=== PATIENT | male | born 1990 | race Caucasian/White ===

== ENCOUNTER 2020-01-30 10:57 | Emergency (ER) | payer SELFPAY ==
--- NOTE | 2020-01-30 | XR_ITS ---
EXAMINATION: XR HAND, RIGHT CLINICAL INFORMATION: Right hand pain status post trauma to the fifth digit. COMPARISON: Right hand radiographs dated 04/09/2018. TECHNIQUE: PA, lateral, and oblique views of the right hand. FINDINGS: There has been interval removal of the previously seen K wire in the fifth metacarpal. Nonacute angulated deformity is seen in the fifth metacarpal. The phalanges are intact. The joint spaces are unremarkable. There is mild fifth digit soft tissue swelling. The remainder the digits are intact. The carpal bones are normally aligned. The distal radius and ulna are intact. IMPRESSION: 1. Mild first digit soft tissue swelling without acute underlying osseous abnormality. Nonacute deformity of the fifth metacarpal consistent with the patient's previous fracture.
[2020-01-30 13:16] VITALS: BP 122/66; PULSE 66; RESP 14; TEMP 36.6; O2SAT 99; BMI 22.6
--- NOTE | 2020-01-30 13:38 | ED.EXTPRO ---
HPI - Extremity Problem General Chief complaint: Extremity Injury, Upper Stated complaint: finger inj Time Seen by Provider: 01/30/20 13:18 Source: patient Mode of arrival: ambulatory Limitations: no limitations History of Present Illness HPI Narrative: patient tells me he was working on a dirtbike and it slipped and fell landing on his right 5th finger. Now has pain, swelling, difficulty flexing the finger. Has small abrasion, tetanus >5 years. Expressed some purulent drainage from wound this morning. No fevers/chills. Also c/o worsening eczema rash, ran out topical creams. MD Complaint: extremity pain and extremity swelling Onset (ago): day(s) (yesterday) Pain Consistency: constant Location: right Quality: sharp Radiation: none Relieving factors: immobilization Exacerbating factors: range of motion Associated symptoms: denies other symptoms Related Data Previous Rx's Medication Instructions Recorded cephalexin 250 mg PO Q6H #28 cap 01/30/20 hydrocortisone 1 applic TOPICAL BID PRN #30 g 01/30/20 Allergies Allergy/AdvReac Type Severity Reaction Status Date / Time apple [APPLE] Allergy Unknown ANAPHYLAXIS Verified 01/30/20 13:21 pollen extracts [POLLEN] Allergy Unknown SNEEZING Verified 01/30/20 13:21 Review of Systems Review of Systems: Yes all other systems are reviewed and are negative Constitutional: Constitutional: Reports no additional constitutional complaints, Denies chills, Denies fever(s) and Denies weakness Eyes: Eyes: Reports no additional eye complaints and Denies change in vision ENT: Reports system reviewed and no additional complaints, except as documented, Denies nasal congestion and Denies nasal discharge Cardiovascular: Cardiovascular: Reports no additional cardiovascular complaints, Denies chest pain, Denies leg edema and Denies dyspnea Respiratory: Respiratory: Reports no additional respiratory complaints, Denies cough and Denies dyspnea Gastrointestinal: Gastrointestinal: Reports no additional gastrointestinal complaints, Denies abdominal pain, Denies diarrhea, Denies nausea and Denies vomiting Musculoskeletal: Musculoskeletal: Reports no additional musculoskeletal complaints, Reports arthralgias, Reports joint swelling, Reports limited range of motion, Denies numbness and Denies tingling Integumentary/Breasts: Skin/Breast: Reports system reviewed and no additional complaints, except as docu and Reports rash Neurologic: Reports system reviewed and no additional complaints, except as documented, Denies Abnormal speech present, Denies numbness, Denies Sensory deficit (Neuro), Denies tingling and Denies weakness PMF Past Medical History Attestation statement: The following information was validated with the patient. Source: obtained from family and nursing notes reviewed Medical History Asthma Eczema Surgical History Hx of appendectomy Social History Social History Alcohol intake: current Alcohol intake frequency: a few times a week Alcohol type: beer and hard liquor Smoking Status: Current every day smoker Smoked in Last 30 Days: Yes Use of substances other than those prescribed or required for medical reasons: No Advance Directives: No Advance Directives Information Provided: Yes Physical Exam Vital Signs and I&O and Narrative: Vital Signs and I&O: Vital Signs Temp 97.8 F 01/30/20 13:48 Pulse 61 01/30/20 13:48 Resp 16 01/30/20 13:48 BP 110/66 01/30/20 13:48 Pulse Ox 99 01/30/20 13:48 Intake & Output 01/29/20 01/30/20 01/30/20 18:59 06:59 18:59 Weight 61.581 kg Body Mass Index 22.6 Const: General: cooperative, healthy appearing, comfortable, no acute distress and well developed Orientation/consciousness: patient oriented x3 Limitations: no limitations HENMT: Head: Yes normal to inspection Ears: hearing grossly normal bilaterally General nose exam: Normal external nose present Face and sinus: Yes normal facial exam Mouth: Normal oral and palatal mucosa present Throat: Yes posterior oropharynx normal Eyes: General: appearance normal, both eyes and all related structures Pupils: Equal, round and reactive pupils present Neck: Neck: Yes normal visual inspection Chest: Chest palpation & inspection: normal inspection of the chest Resp: Effort & Inspection: normal respiratory effort Auscultation: clear to auscultation bilaterally Cardio: Palpation: normal PMI Rate: regular rate Rhythm: regular rhythm Peripheral pulses: Peripheral pulses 2+ throughout GI: Inspection: Yes normal to inspection Palpation (GI): Soft to palpation and nontender Auscultation: normal bowel sounds Back/Spine/Pelvis: Thoracic/Lumbar Spine: thoracic and lumbar spine normal to inspection Skin: Other: eczema like lesions on the flexor surfaces of the UE. Over dorsal hands and digits Neuro: General: patient oriented x3 Cranial nerves: Yes Equal, round and reactive pupils present Speech: No Abnormal speech present Gait exam (Neuro): Normal gait present Motor exam (neuro): 5/5 motor strength present throughout and Motor abnormalities not present Sensory Exam: Normal double simultaneous stimulation for sensation; No Sensory deficit (Neuro) Extrem: Right upper extremity: full ROM (limited d/t pain/swelling ), edema (moderate-entire digit ) and Extremity exam: right hand (moderate swelling, small abrasion to dorsal aspect w/ mild surrounding redn) MDM - Extremity (Nontraumatic) MDM Narrative Medical decision making narrative: Right fifth digit pain, swelling s/p crush injury yesterday. Also has small abrasion to dorsal aspect with mild surrounding erythema. Unable to express drainage myself but patient tells me he was able to express some drainage this morning. Will need imaging to r/o fracture, tetanus updated, wound care. Also eczema exacerbation, will need topical steroids as he ran out at home. X-ray shows no acute findings. Exam c/w with contusion, likely early cellulitis and will treat with PO keflex. Reviewed worrisome signs/symptoms with the patinet and when to return to ED. Comfortable with discharge home. Imaging Data hand x-ray: Attestation: I personally reviewed and interpreted this imaging study as follows: My impression: no new bony abnormality Radiologist's impression: EXAMINATION: XR HAND, RIGHT CLINICAL INFORMATION: Right hand pain status post trauma to the fifth digit. COMPARISON: Right hand radiographs dated 04/09/2018. TECHNIQUE: PA, lateral, and oblique views of the right hand. FINDINGS: There has been interval removal of the previously seen K wire in the fifth metacarpal. Nonacute angulated deformity is seen in the fifth metacarpal. The phalanges are intact. The joint spaces are unremarkable. There is mild fifth digit soft tissue swelling. The remainder the digits are intact. The carpal bones are normally aligned. The distal radius and ulna are intact. IMPRESSION: 1. Mild first digit soft tissue swelling without acute underlying osseous abnormality. Nonacute deformity of the fifth metacarpal consistent with the patient's previous fracture. Discharge Plan Discharge Clinical Impression: Acute eczema Contusion Qualifiers: Encounter type: initial encounter Contusion area: finger Finger: little finger Damage to nail status: without damage Laterality: right Qualified Code(s): S60.051A - Contusion of right little finger without damage to nail, initial encounter Cellulitis Qualifiers: Site of cellulitis: extremity Site of cellulitis of extremity: finger Laterality: right Qualified Code(s): L03.011 - Cellulitis of right finger Patient Disposition: Home, Self-Care Instructions: Cellulitis (ED), Eczema (ED), Contusion in Adults (ED) Additional Instructions: ice to the area elevation topical antibiotic ointment as discussed Prescriptions: New hydrocortisone 2.5 % cream 1 applic topical BID PRN (Reason: rash) Qty: 30 RF: 0 cephalexin 250 mg capsule 250 mg PO Q6H Qty: 28 RF: 0 Referrals: Physician,None [Primary Care Provider] - 5 days Stand Alone Forms: Work/School Release Interventions: ED Discharge Assessment Last Done: 01/30/20 14:41 Discharge Date/Time: 01/30/20 14:42
[2020-01-30 13:48] VITALS: BP 110/66; PULSE 61; RESP 16; TEMP 36.6; O2SAT 99
== END 2020-01-30 14:42 | disposition home or self-care (01) ==
PROVIDERS: Emergency Provider Internal Medicine
DX: S60.051A Contusion of right little finger without damage to nail, initial encounter (principal); S60.416A Abrasion of right little finger, initial encounter; L03.011 Cellulitis of right finger; L30.9 Dermatitis, unspecified; M79.641 Pain in right hand; W01.0XXA Fall on same level from slipping, tripping and stumbling without subsequent striking against object, initial encounter; Y93.9 Activity, unspecified; Y92.007 Garden or yard of unspecified non-institutional (private) residence as the place of occurrence of the external cause; F17.200 Nicotine dependence, unspecified, uncomplicated; Z71.6 Tobacco abuse counseling
CPT/HCPCS: 73130; 90471; 90715; 99284

== ENCOUNTER 2020-09-13 11:38 | Emergency (ER) | payer SELFPAY ==
[2020-09-13 12:32] VITALS: BP 128/75; PULSE 95; RESP 16; TEMP 36.6; O2SAT 97; BMI 22.6
--- NOTE | 2020-09-13 13:30 | ED_ITS ---
HPI - Skin/Abscess/Foreign Bdy General Chief complaint: Skin/Abscess/Foreign Body Stated complaint: rash Time Seen by Provider: 09/13/20 12:52 Source: patient Mode of arrival: ambulatory Limitations: no limitations History of Present Illness HPI narrative: 30-year-old male with a history of psoriasis here with psoriasis flare for 3 days. Tells me he does not have a primary care doctor or ct scan technologist. No fevers, chills Related Data Previous Rx's Medication Instructions Recorded cephalexin 250 mg PO Q6H #28 cap 01/30/20 hydrocortisone 1 applic TOPICAL BID PRN #30 g 01/30/20 hydrocortisone [Anti-Itch (HC)] 1 appl TOPICAL TID PRN #453.6 g 09/13/20 hydroxyzine HCl 25 mg PO TID PRN #10 tab 09/13/20 prednisone 60 mg PO DAILY #15 tab 09/13/20 Allergies Allergy/AdvReac Type Severity Reaction Status Date / Time apple [APPLE] Allergy Unknown ANAPHYLAXIS Verified 09/13/20 12:34 pollen extracts [POLLEN] Allergy Unknown SNEEZING Verified 09/13/20 12:34 Review of Systems Review of Systems: Yes all other systems are reviewed and are negative Constitutional: Constitutional: Reports no additional constitutional complaints, Denies body ache(s), Denies chills, Denies fever(s), Denies headache(s) and Denies weakness Eyes: Eyes: Reports no additional eye complaints and Denies change in vision ENT: Reports system reviewed and no additional complaints, except as documented, Denies dizziness, Denies headache(s), Denies nasal congestion, Denies nasal discharge and Denies neck pain Cardiovascular: Cardiovascular: Reports no additional cardiovascular complaints, Denies chest pain, Denies leg edema and Denies dyspnea Respiratory: Respiratory: Reports no additional respiratory complaints, Denies cough and Denies dyspnea Gastrointestinal: Gastrointestinal: Reports no additional gastrointestinal complaints, Denies abdominal pain, Denies diarrhea, Denies nausea and Denies vomiting Genitourinary: Genitourinary: Denies urinary incontinence Musculoskeletal: Musculoskeletal: Reports no additional musculoskeletal complaints, Denies back pain, Denies arthralgias, Denies joint swelling, Denies neck pain, Denies numbness and Denies tingling Integumentary/Breasts: Skin/Breast: Reports system reviewed and no additional complaints, except as docu and Reports rash Neurologic: Reports system reviewed and no additional complaints, except as documented, Denies Abnormal speech present, Denies dizziness, Denies headache(s), Denies numbness, Denies tingling and Denies weakness PMFSH Past Medical History Attestation statement: The following information was validated with the patient. Source: old records reviewed and nursing notes reviewed Medical History Asthma Eczema Surgical History Hx of appendectomy Social History Social History Alcohol intake: never Smoking Status: Never smoker Use of substances other than those prescribed or required for medical reasons: No Advance Directives: No Advance Directives Information Provided: Yes Physical Exam Vital Signs: Vital Signs: Last Vital Signs Temp 98 F 09/13/20 12:32 Pulse 95 09/13/20 12:32 Resp 16 09/13/20 12:32 BP 128/75 09/13/20 12:32 Pulse Ox 97 09/13/20 12:32 Body Mass Index 22.6 Const: General: cooperative, healthy appearing, comfortable and no acute distress Orientation/consciousness: patient oriented x3 Limitations: no limitations HENMT: Head: Yes normal to inspection Ears: hearing grossly normal bilaterally General nose exam: Normal external nose present Face and sinus: Yes normal facial exam Mouth: Normal oral and palatal mucosa present Throat: Yes posterior oropharynx normal Eyes: General: appearance normal, both eyes and all related structures Pupils: Equal, round and reactive pupils present Neck: Neck: Yes normal visual inspection Chest: Chest palpation & inspection: normal inspection of the chest Resp: Effort & Inspection: normal respiratory effort Auscultation: clear to auscultation bilaterally Cardio: Rate: regular rate Rhythm: regular rhythm Peripheral pulses: Peripheral pulses 2+ throughout GI: Inspection: Yes normal to inspection Palpation (GI): Soft to palpation and nontender Auscultation: normal bowel sounds Back/Spine/Pelvis: Thoracic/Lumbar Spine: thoracic and lumbar spine normal to inspection Skin: Other: Raised Urticarial lesions with Brandon a cooley noted over the flexor surfaces of the upper extremities and over the trunk. No lesions noted over the extensor surfaces General skin exam: no rashes or lesions noted Neuro: General: patient oriented x3, no focal motor deficits and normal sensation to monofilament Cranial nerves: Yes Equal, round and reactive pupils present Cognition (Neuro): normal cognition Speech: No Abnormal speech present Gait exam (Neuro): Normal gait present Motor exam (neuro): 5/5 motor strength present throughout Extrem: General: Yes normal to inspection Course Course Course Narrative: 30-year-old male here with reports of psoriasis flare. Exam is more consistent with eczema however the treatment course is no different. Will give course of prednisone, hydrocortisone topical and hydroxyzine for itching. Patient does not have a primary care doctor or ct scan technologist. This is his repeat visit to the emergency department for the same thing. We discussed that it is very important that he establish a primary care doctor and request Dermatology referral as this is a life long diagnosis. Discharge Plan Discharge Clinical Impression: Psoriasis Patient Disposition: Home, Self-Care Instructions: Psoriasis (ED) Additional Instructions: Only use lukewarm showers avoid heat. Stay well moisturized. By Eucerin and mixes together with the hydrocortisone ointment See PCP list Prescriptions: New hydrocortisone [Anti-Itch (HC)] 1 % ointment 1 appl topical TID PRN (Reason: rash) Qty: 453.6 RF: 0 prednisone 20 mg tablet 60 mg PO DAILY Qty: 15 RF: 0 hydroxyzine HCl 25 mg tablet 25 mg PO TID PRN (Reason: itching) Qty: 10 RF: 0 No Action hydrocortisone 2.5 % cream 1 applic topical BID PRN (Reason: rash) Qty: 30 RF: 0 cephalexin 250 mg capsule 250 mg PO Q6H Qty: 28 RF: 0 Referrals: Physician,Unknown [Primary Care Provider] - 2 days Stand Alone Forms: Work/School Release Interventions: ED Discharge Assessment Last Done: 09/13/20 13:22 Discharge Date/Time: 09/13/20 13:23
== END 2020-09-13 13:23 | disposition home or self-care (01) ==
PROVIDERS: Emergency Provider Emergency Medicine Emergency Medical Services
DX: L40.9 Psoriasis, unspecified (principal)
CPT/HCPCS: 99283; 99284

== ENCOUNTER 2021-01-21 10:09 | Emergency (ER) | payer OTHER, SELFPAY ==
[2021-01-21 11:10] VITALS: BP 137/63; PULSE 72; RESP 18; TEMP 36.4; O2SAT 98; BMI 21.7
--- NOTE | 2021-01-21 11:32 | ED.SKABFB ---
HPI - Skin/Abscess/Foreign Bdy General Chief complaint: Skin/Abscess/Foreign Body Stated complaint: facial swelling Time Seen by Provider: 01/21/21 11:30 Source: patient Mode of arrival: ambulatory Limitations: no limitations History of Present Illness HPI narrative: 30-year-old male presents for 4 days of worsening rash and itching. Patient has a history of psoriasis, and has as scaly flaky itchy rash on his face, neck, trunk, low back, flexor surfaces of his elbows, and under his right axilla. Patient was seen her in August, given prednisone hydroxyzine and hydrocortisone cream. Patient has run out of these medications. He does not have a PCP but he is interested in getting insurance through [employer]. Related Data Previous Rx's Medication Instructions Recorded cephalexin 250 mg capsule 250 mg PO Q6H #28 cap 01/30/20 hydrocortisone 2.5 % topical cream 1 applic TOPICAL BID PRN #30 g 01/30/20 hydrocortisone 1 % topical 1 appl TOPICAL TID PRN #453.6 g 09/13/20 ointment (Anti-Itch (hydrocortisone)) hydroxyzine HCl 25 mg tablet 25 mg PO TID PRN #10 tab 09/13/20 prednisone 20 mg tablet 60 mg PO DAILY #15 tab 09/13/20 hydrocortisone 1 % topical cream 1 appl TOPICAL TID PRN #454 g 01/21/21 hydroxyzine HCl 25 mg tablet 25 mg PO TID PRN #30 tab 01/21/21 prednisone 20 mg tablet 40 mg PO DAILY 5 Days #10 tab 01/21/21 Allergies Allergy/AdvReac Type Severity Reaction Status Date / Time apple [APPLE] Allergy Unknown ANAPHYLAXIS Verified 09/13/20 12:34 pollen extracts [POLLEN] Allergy Unknown SNEEZING Verified 09/13/20 12:34 Review of Systems Constitutional: Constitutional: Denies body ache(s), Denies chills, Denies fatigue, Denies fever(s), Denies headache(s), Denies malaise and Denies weakness Eyes: Eyes: Denies diplopia ENT: Denies vertigo, Denies dizziness, Denies headache(s) and Denies throat swelling Cardiovascular: Cardiovascular: Denies chest pain, Denies syncope, Denies leg edema, Denies lightheadedness, Denies Loss of Consciousness, Denies palpitations and Denies dyspnea Respiratory: Respiratory: Denies chest congestion, Denies cough and Denies dyspnea Musculoskeletal: Musculoskeletal: Reports no additional musculoskeletal complaints Integumentary/Breasts: Skin/Breast: Reports pruritus and Reports rash Neurologic: Denies confusion, Denies vertigo, Denies dizziness, Denies syncope, Denies headache(s) and Denies weakness Psychiatric: Psychiatric: Denies anxiety, Denies confusion and Denies depression Endocrine: Endocrine: Denies fatigue and Denies palpitations Allergic/Immunologic: Allergic/Immunologic: Denies throat swelling PMFSH Past Medical History Medical History Asthma Eczema Surgical History Hx of appendectomy Social History Social History Alcohol intake: never Advance Directives: No Advance Directives Information Provided: No Physical Exam Vital Signs: Vital Signs: Last Vital Signs Temp 97.6 F 01/21/21 11:10 Pulse 72 01/21/21 11:10 Resp 18 01/21/21 11:10 BP 137/63 01/21/21 11:10 Pulse Ox 98 01/21/21 11:10 Body Mass Index 21.7 Const: General: No confusion Nutritional Appearance: well nourished Orientation/consciousness: No confusion Limitations: no limitations Eyes: Conjunctivae: conjunctivae normal Pupils: Equal, round and reactive pupils present EOM: EOMs intact bilaterally Neck: Neck: Yes full ROM, Yes no lymphadenopathy and Yes supple Resp: Effort & Inspection: normal respiratory effort and able to speak in complete sentences Auscultation: clear to auscultation bilaterally, no crackles, no rales, no rhonchi and no wheezes Cardio: Rate: regular rate Rhythm: regular rhythm Heart sounds: S1 normal heart sound present and S2 normal heart sound present GI: Inspection: Yes normal to inspection Palpation (GI): Soft to palpation, nontender, no guarding and not rigid Percussion: Yes normal to percussion Auscultation: normal bowel sounds Skin: Other: Patient has erythematous cutaneous plaques with thick silvery scale that is puritic on his trunk, lower back, neck, flexor surfaces bilateral elbows, and mildly on his face. 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 On exam, patient has erythematous cutaneous plaques with thick silvery scale that is puritic on his trunk, lower back, neck, flexor surfaces bilateral elbows, and mildly on his face. We prescribed hydrocortisone cream, prednisone, hydroxyzine. Told patient to not put hydrocortisone cream on his face Gave patient card to call [employer] so he can establish insurance and starts seeing a primary care provider to take care of this life lung disease. Patient verbalized agreement and understanding of this plan. Discharge Plan Discharge Clinical Impression: Psoriasis Patient Disposition: Home, Self-Care Instructions: Psoriasis (ED) Additional Instructions: Please fill the prescriptions. Please call the number for [employer] to establish health insurance, so you can start seeing a primary care provider for your skin disease. There are medications that are more effective that a primary care provider can prescribe that I cannot prescribe here from the emergency room. Please avoid putting this cream on your head. Please moisturize. We discussed using something called Eucerin cream, which is a thick white cream you can buy at the pharmacy. You may use this on your hands, and then wear gloves to bed. This may help a lot with your hand symptoms. Please return for any new or concerning symptoms. Prescriptions: New hydrocortisone 1 % cream 1 appl topical TID PRN (Reason: rash) Qty: 454 RF: 0 prednisone 20 mg tablet 40 mg PO DAILY 5 Days Qty: 10 RF: 0 hydroxyzine HCl 25 mg tablet 25 mg PO TID PRN (Reason: itching) Qty: 30 RF: 0 No Action hydrocortisone [Anti-Itch (HC)] 1 % ointment 1 appl topical TID PRN (Reason: rash) Qty: 453.6 RF: 0 prednisone 20 mg tablet 60 mg PO DAILY Qty: 15 RF: 0 hydroxyzine HCl 25 mg tablet 25 mg PO TID PRN (Reason: itching) Qty: 10 RF: 0 hydrocortisone 2.5 % cream 1 applic topical BID PRN (Reason: rash) Qty: 30 RF: 0 cephalexin 250 mg capsule 250 mg PO Q6H Qty: 28 RF: 0
== END 2021-01-21 12:47 | disposition home or self-care (01) ==
PROVIDERS: Emergency Provider Emergency Medicine
DX: L40.9 Psoriasis, unspecified (principal); Z79.899 Other long term (current) drug therapy
CPT/HCPCS: 99283

== ENCOUNTER 2022-08-28 08:24 | Emergency (ER) | payer SELFPAY ==
--- NOTE | ~2022-08-28 | CT_ITS ---
EXAMINATION: CT HEAD WITHOUT CONTRAST CLINICAL INFORMATION: New onset seizure. COMPARISON: 02/26/[address] scan. TECHNIQUE: Contiguous axial imaging was performed from the skull base to vertex without intravenous administration of contrast. Coronal and sagittal reformatted images were obtained. This CT examination was performed using dose optimization techniques as appropriate, variously including the following: *Automated exposure control *Adjustment of mA and/or kV according to patient size (this includes techniques or standardized protocols for targeted exams where dose is matched to indication/reason for exam; i.e. extremities or head) *Use of iterative reconstruction technique DLP: 552 mGy-cm FINDINGS: The cortical sulci are normal. The lateral ventricles are symmetrical. The third and fourth ventricles are in their normal midline position. The basilar and prepontine cisterns are unremarkable. There is no acute intra or extracerebral abnormality. There is no mass effect or midline shift. Sections through the bony calvarium are unremarkable. The paranasal sinuses show mild mucosal thickening in the visualized ethmoid, sphenoid and maxillary sinuses bilaterally. The bony orbits and orbital contents are unremarkable. CT/CT head/brain wo IV con IMPRESSION: No acute intracranial pathology.
[2022-08-28 08:33] VITALS: BP 120/75; BP 123/77; PULSE 85; PULSE 89; RESP 18; O2SAT 97; BMI 26.6
--- NOTE | 2022-08-28 08:39 | ECG_ITS ---
Test Reason : CHEST PAIN Blood Pressure : / mmHG Vent. Rate : 078 BPM Atrial Rate : 078 BPM P-R Int : 150 ms QRS Dur : 080 ms QT Int : 374 ms P-R-T Axes : 054 066 027 degrees QTc Int : 426 ms Normal sinus rhythm Possible Left atrial enlargement Borderline ECG When compared with ECG of 12-DEC-2013 22:05, Vent. rate has increased BY 30 BPM Referred By: Joni Borrego Electronically Signed By:NICKIE KRAUS MD
[2022-08-28] MEDS: 0.9 % Sodium Chloride 1,000 ML 999 ML IV (08:44)
--- NOTE | 2022-08-28 09:00 | ED.SEIZURE ---
HPI - Seizure General Chief Complaint: Seizure Stated Complaint: SZ, NO SZ HX PER EMS Time Seen by Provider: 08/28/22 08:32 Source: patient and EMS Mode of arrival: EMS Limitations: no limitations History of Present Illness HPI Narrative: 32-year-old male with no major medical problems presents with a seizure. It was witnessed. He has never had a seizure before. He provides us with a video of what happened. Blood sugar upon EMS arrival was 151. Patient does not remember the events. He denies any drugs or alcohol. He denies any significant pain, headaches, nausea, vomiting or focal neurologic deficits. There is no clear relieving or exacerbating features. Still remains slightly confused. Related Data Previous Rx's Medication Instructions Recorded cephalexin 250 mg capsule 250 mg PO Q6H #28 caps 01/30/20 hydrocortisone 2.5 % topical cream 1 applic topical BID PRN rash #30 01/30/20 grams hydrocortisone 1 % topical 1 appl topical TID PRN rash #453.6 09/13/20 ointment (Anti-Itch grams (hydrocortisone)) hydroxyzine HCl 25 mg tablet 25 mg PO TID PRN itching #10 tabs 09/13/20 prednisone 20 mg tablet 60 mg PO DAILY #15 tabs 09/13/20 hydrocortisone 1 % topical cream 1 appl topical TID PRN rash #454 01/21/21 grams hydroxyzine HCl 25 mg tablet 25 mg PO TID PRN itching #30 tabs 01/21/21 prednisone 20 mg tablet 40 mg PO DAILY 5 days #10 tabs 01/21/21 hydrocortisone 2.5 % topical cream 1 appl topical BID PRN rash #30 02/06/21 grams hydrocortisone 1 % topical ointment 1 appl topical BID PRN skin 08/28/22 irritation #453.6 grams Allergies Allergy/AdvReac Type Severity Reaction Status Date / Time apple [APPLE] Allergy Unknown ANAPHYLAXIS Verified 09/13/20 12:34 pollen extracts [POLLEN] Allergy Unknown SNEEZING Verified 09/13/20 12:34 PMFSH Past Medical History Medical History Asthma Eczema Surgical History Hx of appendectomy Social History Social History Alcohol intake: never Smoked in Last 30 Days: Yes Use of substances other than those prescribed or required for medical reasons: Yes Substance Use Type: Marijuana Substance Use Frequency: Daily Advance Directives: No Advance Directives Information Provided: Yes Physical Exam Vital Signs: Vital Signs: Last Vital Signs Temp 98.0 F 08/28/22 12:27 Pulse 85 08/28/22 12:27 Resp 16 08/28/22 12:27 BP 117/68 08/28/22 12:27 Pulse Ox 97 08/28/22 12:27 O2 Del Method Room Air 08/28/22 12:27 BMI result Body Mass Index 26.6 GEN: Well developed, no acute distress, alert, oriented HEENT: Normocephalic, atraumatic, normal external ears, nose appears normal, no oropharyngeal edema or exudates Eyes: Normal to appearance Neck: Supple, no lymphadenopathy Respiratory: Talks in complete sentences, no respiratory distress, clear to auscultation bilaterally Cardiovascular: Regular rate and rhythm, no murmurs rubs or gallops Abdomen: Soft, nontender, nondistended, no guarding, no rebound Back: No CVA tenderness Extremities: No clubbing cyanosis or edema Neurologic: No focal neurologic deficits, cranial nerves 2-12 intact, strength is 5/5 bilaterally Skin: No rash Course Course Course Narrative: 32-year-old male presents with first-time seizure. He currently has slightly postictal, no focal deficits. Has no acute complaints. Patient will have workup including electrolytes, magnesium, prolactin level, lactic acid. Will also obtain a CT scan the head to rule out lesion or mass effect. Patient is aware he will require an outpatient MRI and EEG. We also already discussed no driving for at least 6 months. Reevaluation(s) Reevaluation #1: no further seizure activity. Discussed all results and discussed reason to return. He will not drive. Time: 15:22 Medications Administered Discontinued Medications Generic Name Dose Route Start Last Admin Trade Name Freq PRN Reason Stop Dose Admin Cyclobenzaprine HCl 10 mg 08/28/22 09:12 08/28/22 09:39 Cyclobenzaprine Hcl 10 Mg Tablet PO 08/28/22 09:13 10 mg ONCE ONE Administration Sodium Chloride 1,000 mls @ 999 mls/hr 08/28/22 08:45 08/28/22 09:39 Ns IV 08/28/22 09:45 Infused .Q1H1M GALE Infusion Lorazepam 1 mg 08/28/22 14:37 08/28/22 14:41 Lorazepam 1 Mg Tablet PO 08/28/22 14:38 1 mg ONCE ONE Administration Medical Decision Making Medical Decision Making [facility] Narrative: 32-year-old male presents with new onset seizure. Patient has no focal deficit on exam. Differential diagnosis could include alcohol intoxication, alcohol withdrawal, hyponatremia, lesion, seizure, pseudo-seizure. Workup will include CT scan, laboratory analysis and re-evaluations. Differential Diagnosis Differential Diagnoses: The differential diagnosis associated with the presentation includes (alcohol intoxication, alcohol withdrawal, hyponatremia, lesion, seizure, pseudo-seizur) new onset seizure Lab Data [facility] Lab Attestation statement: I reviewed the patient's lab results. 08/28/22 09:11 08/28/22 09:11 Labs: Lab Results 08/28/22 08/28/22 08/28/22 Range/Units 09:11 09:11 09:11 WBC 6.9 (4.8-10.8) X10*3/uL RBC 4.70 (4.60-5.80) X10*6/uL Hgb 14.2 (14.0-18.0) g/dl Hct 40.7 L (42.0-52.0) % MCV 86.6 (80.0-98.0) fL MCH 30.2 (27.0-33.0) pg MCHC 34.9 (31.0-36.0) g/dl RDW 12.3 (11.0-16.0) % Plt Count 235 (160-400) X10*3/uL MPV 9.6 (9.4-12.4) fL Immature Gran % (Auto) 0.9 H (0.0-0.4) % Neut % (Auto) 80.6 H (45-73) % Lymph % (Auto) 7.5 L (20-40) % [place] % (Auto) 7.8 (2-11) % Eos % (Auto) 2.8 (0-4) % Baso % (Auto) 0.4 (0-2) % Lymph # (Auto) 0.5 L (1.2-4.9) X10*3/uL [place] # (Auto) 0.5 (0.1-1.2) X10*3/uL Eos # (Auto) 0.2 (0.0-0.4) X10*3/uL Baso # (Auto) 0.0 (0.0-0.2) X10*3/uL Abs Immat Gran (auto) 0.06 H (0.00-0.03) X10*3/uL Absolute Neuts (auto) 5.6 (2.0-8.3) x10*3/uL Absolute Nucleated RBC 0.000 (0.0-0.012) X10*3/uL Nucleated RBC % (auto) 0.0 (0.0-0.2) /100WBC Sodium 140 (135-145) mmol/L Potassium 4.4 (3.3-5.1) mmol/L Chloride 109 H (96-108) mmol/L Carbon Dioxide 23 (22-29) mmol/L Anion Gap 12 (12-20) BUN 12 (9-16) mg/dL Creatinine 0.74 (0.5-1.4) mg/dL Estim Creat Clear Calc 125.8 Estimated GFR > 60 Random Glucose 106 (60-115) mg/dL Lactic Acid 1.3 (0.5-2.0) mmol/L Calcium 8.6 (8.4-10.2) mg/dL Magnesium 2.0 (1.6-2.6) mg/dL Total Creatine Kinase 214 H (38-174) U/L TSH 0.53 (0.32-4.0) uIU/mL Urine Color Urine Appearance Urine pH (5.0-9.0) Ur Specific [place] (1.005-1.025) Urine Protein (Neg-Trace) mg/dL Urine Glucose (UA) (Negative) mg/dL Urine Ketones (Negative) mg/dL Urine Blood (Negative) Urine Nitrite (Negative) Ur Leukocyte Esterase (Negative) Urine Opiates Screen (Not Detect) Urine Fentanyl Screen (Not Detect) Ur Barbiturates Screen (Not Detect) Ur Phencyclidine Scrn (Not Detect) Ur Amphetamines Screen (Not Detect) U Benzodiazepines Scrn (Not Detect) Urine Cocaine Screen (Not Detect) U Marijuana (THC) Screen (Not Detect) Ethyl Alcohol < 10 mg/dL 05/04/23 05/04/23 Range/Units 10:58 10:58 WBC (4.8-10.8) X10*3/uL RBC (4.60-5.80) X10*6/uL Hgb (14.0-18.0) g/dl Hct (42.0-52.0) % MCV (80.0-98.0) fL MCH (27.0-33.0) pg MCHC (31.0-36.0) g/dl RDW (11.0-16.0) % Plt Count (160-400) X10*3/uL MPV (9.4-12.4) fL Immature Gran % (Auto) (0.0-0.4) % Neut % (Auto) (45-73) % Lymph % (Auto) (20-40) % [place] % (Auto) (2-11) % Eos % (Auto) (0-4) % Baso % (Auto) (0-2) % Lymph # (Auto) (1.2-4.9) X10*3/uL [place] # (Auto) (0.1-1.2) X10*3/uL Eos # (Auto) (0.0-0.4) X10*3/uL Baso # (Auto) (0.0-0.2) X10*3/uL Abs Immat Gran (auto) (0.00-0.03) X10*3/uL Absolute Neuts (auto) (2.0-8.3) x10*3/uL Absolute Nucleated RBC (0.0-0.012) X10*3/uL Nucleated RBC % (auto) (0.0-0.2) /100WBC Sodium (135-145) mmol/L Potassium (3.3-5.1) mmol/L Chloride (96-108) mmol/L Carbon Dioxide (22-29) mmol/L Anion Gap (12-20) BUN (9-16) mg/dL Creatinine (0.5-1.4) mg/dL Estim Creat Clear Calc Estimated GFR Random Glucose (60-115) mg/dL Lactic Acid (0.5-2.0) mmol/L Calcium (8.4-10.2) mg/dL Magnesium (1.6-2.6) mg/dL Total Creatine Kinase (38-174) U/L TSH (0.32-4.0) uIU/mL Urine Color Yellow Urine Appearance Clear Urine pH 6.0 (5.0-9.0) Ur Specific [place] 1.020 (1.005-1.025) Urine Protein Trace (Neg-Trace) mg/dL Urine Glucose (UA) Negative (Negative) mg/dL Urine Ketones Trace (Negative) mg/dL Urine Blood Negative (Negative) Urine Nitrite Negative (Negative) Ur Leukocyte Esterase Negative (Negative) Urine Opiates Screen Not Detected (Not Detect) Urine Fentanyl Screen Not Detected (Not Detect) Ur Barbiturates Screen Not Detected (Not Detect) Ur Phencyclidine Scrn Not Detected (Not Detect) Ur Amphetamines Screen Not Detected (Not Detect) U Benzodiazepines Scrn Not Detected (Not Detect) Urine Cocaine Screen POSITIVE H (Not Detect) U Marijuana (THC) Screen POSITIVE H (Not Detect) Ethyl Alcohol mg/dL Independent Interpretation I performed an independent interpretation of an: EKG (Normal sinus rhythm heart rate 78, no acute ST elevations depressions, normal intervals) and CT Scan Radiology Impression Discussion of test interpretation with radiology: I have reviewed the radiologist's reading. Independent Historian Clinical information obtained from an independent historian. History obtained from or confirmed by: EMS Prescription Management I considered prescription management with: Pain Medication Discharge Plan Discharge Clinical Impression: Generalized seizure Patient Disposition: Home, Self-Care Instructions: New-Onset Seizure in Adults (ED) Additional Instructions: Your diagnosed with a new onset tonic clonic seizure today. At this time we are recommending that you do not drive until cleared by a neurologist and for least 6 months. Additionally, you should follow-up with a neurologist. He may require an MRI and an EEG. Should you have a 2nd seizure, please return immediately to the emergency department by calling 911 or having a friend or family member called 911. For first-time seizures, we do not start prophylactic medications unless otherwise indicated. The CT scan of your head did not reveal any obvious lesions that could insight a seizure and therefore we have not initiated prophylactic medications. However, should she have a 2nd or 3rd seizure, with certainly want to start antiseizure medications until you follow-up with a neurologist. Prescriptions: New hydrocortisone 1 % ointment 1 appl topical BID PRN (Reason: skin irritation) Qty: 453.6 0RF No Action hydrocortisone [Anti-Itch (HC)] 1 % ointment 1 appl topical TID PRN (Reason: rash) Qty: 453.6 0RF prednisone 20 mg tablet 60 mg PO DAILY Qty: 15 0RF hydroxyzine HCl 25 mg tablet 25 mg PO TID PRN (Reason: itching) Qty: 10 0RF hydrocortisone 2.5 % cream 1 applic topical BID PRN (Reason: rash) Qty: 30 0RF cephalexin 250 mg capsule 250 mg PO Q6H Qty: 28 0RF hydrocortisone 1 % cream 1 appl topical TID PRN (Reason: rash) Qty: 454 0RF prednisone 20 mg tablet 40 mg PO DAILY 5 Days Qty: 10 0RF hydroxyzine HCl 25 mg tablet 25 mg PO TID PRN (Reason: itching) Qty: 30 0RF hydrocortisone 2.5 % cream 1 appl topical BID PRN (Reason: rash) Qty: 30 0RF Referrals: Mina Gomez MD [Physician] - 1 week
[2022-08-28 09:18] LABS: MANUAL DIFF FLAG NO
[2022-08-28 09:21] LABS: Basophils Percent Auto 0.4 % (0-2); Eosinophils Absolute Auto 0.2 X10*3/uL (0.0-0.4); Eosinophils Percent Auto 2.8 % (0-4); Hematocrit 40.7 % (42.0-52.0); Hemoglobin 14.2 g/dl (14.0-18.0); Imm Gran Abs Auto 0.06 X10*3/uL (0.00-0.03); Imm Gran Pct Auto 0.9 % (0.0-0.4); Lymphocytes Absolute Auto 0.5 X10*3/uL (1.2-4.9); Lymphocytes Percent Auto 7.5 % (20-40); Mean Corpuscular HGB Conc 34.9 g/dl (31.0-36.0); Mean Corpuscular Hemoglobin 30.2 pg (27.0-33.0); Mean Corpuscular Volume 86.6 fL (80.0-98.0); Mean Platelet Volume 9.6 fL (9.4-12.4); Monocytes Absolute Auto 0.5 X10*3/uL (0.1-1.2); Monocytes Percent Auto 7.8 % (2-11); Neutrophils Absolute Auto 5.6 x10*3/uL (2.0-8.3); Neutrophils Percent Auto 80.6 % (45-73); Platelet Count 235 X10*3/uL (160-400); Red Cell Distribution Width 12.3 % (11.0-16.0); White Blood Count 6.9 X10*3/uL (4.8-10.8)
[2022-08-28 09:34] LABS: Lactic Acid 1.3 mmol/L (0.5-2.0)
[2022-08-28] MEDS: Cyclobenzaprine HCl 10 MG TABLET PO (09:39)
[2022-08-28 09:55] LABS: Anion Gap 12 (12-20); Blood Urea Nitrogen 12 mg/dL (9-16); Calcium 8.6 mg/dL (8.4-10.2); Carbon Dioxide 23 mmol/L (22-29); Chloride 109 mmol/L (96-108); Creatinine Clr Calc Pharmacy 125.8; Estimated Glomerular Filt Rate > 60; Ethanol < 10 mg/dL; Glucose Random 106 mg/dL (60-115); Potassium 4.4 mmol/L (3.3-5.1); Sodium 140 mmol/L (135-145)
[2022-08-28 09:59] LABS: TSH reflex Free T4 0.53 uIU/mL (0.32-4.0)
--- NOTE | 2022-08-28 10:54 | PC.NURSE ---
pt got up to use the bathroom and pulled IV out. was seen walking in hallway to bathroom with blood on his hands. pt sts he didn't notice/feel that he ripped it out. tech cleaned pt and bed up.
[2022-08-28 11:01] VITALS: BP 119/80; PULSE 62; RESP 14; TEMP 36.5; O2SAT 96
[2022-08-28 11:10] LABS: Appearance Urine Clear; Color Urine Yellow; Glucose Urine UA Negative (Negative); Leukocyte Esterase Urine Negative (Negative); Nitrite Urine Negative (Negative); Urine Blood Negative (Negative); Urine Ketones Trace mg/dL (Negative); Urine Protein Trace mg/dL (Neg-Trace)
[2022-08-28 11:19] LABS: Amphetamine Screen Urine Not Detected (Not Detect); Barbiturates, Urine Not Detected (Not Detect); Benzodiazepines Screen Urine Not Detected (Not Detect); Cannabinoid Screen Urine POSITIVE (Not Detect); Cocaine Screen Urine POSITIVE (Not Detect); Fentanyl, urine Not Detected (Not Detect); Opiate Screen Urine Not Detected (Not Detect); Phencyclidine Screen Urine Not Detected (Not Detect)
[2022-08-28 12:27] VITALS: BP 117/68; PULSE 85; RESP 16; TEMP 36.7; O2SAT 97
--- NOTE | 2022-08-28 13:16 | PC.NURSE ---
pt calling staff over to bedside, sts i feel like im about to shoot out of this universe . pt describes feeling dizzy, sat up slightly in bed. provider notified. no evidence of seizure activity, ?aura. curtain opened to keep eye on pt at this time, remains with seizure precautions in place.
[2022-08-28] MEDS: LORazepam 1 MG TABLET PO (14:41)
[2022-08-28 15:20] VITALS: BP 118/81; PULSE 74; RESP 14; TEMP 36.5; O2SAT 98
== END 2022-08-28 16:02 | disposition home or self-care (01) ==
PROVIDERS: Emergency Provider Emergency Medicine
DX: G40.409 Other generalized epilepsy and epileptic syndromes, not intractable, without status epilepticus (principal); F12.90 Cannabis use, unspecified, uncomplicated; Z79.899 Other long term (current) drug therapy
CPT/HCPCS: 36415; 70450; 80048; 80307; 81003; 82550; 83605; 83735; 84146; 84443; 85025; 93005; 96360; 99284; 99285

== ENCOUNTER 2023-09-14 15:12 | Emergency (ER) | payer SELFPAY ==
[2023-09-14 16:20] VITALS: BP 114/61; PULSE 87; RESP 20; TEMP 36.7; O2SAT 99; BMI 22.8
--- NOTE | 2023-09-14 16:43 | ED_ITS ---
HPI - Skin/Abscess/Foreign Bdy General Chief complaint: Skin/Abscess/Foreign Body Stated complaint: body rash itchy burning Time Seen by Provider: 09/14/23 16:51 Source: patient and RN notes reviewed Mode of arrival: ambulatory Limitations: no limitations History of Present Illness ED Provider: Beatris HPI narrative: This is a 33-year-old male, with a history of eczema and psoriasis, who presents emergency department complaints of eczema flare up for the last 2 weeks. Patient states that rash is located on his scalp, face, neck, and bilateral arms. He states that he was trying [id number] topical cream which has provided him without any relief. He denies any fevers, chills, chest pain, shortness of breath, abdominal pain, nausea, vomiting or diarrhea. He states that he does not have a primary care physician as he has had difficulties with his health insurance. No other complaints or concerns at this time. MD complaint: rash Onset (ago): week(s) Severity: moderate Quality: burning Pain Consistency: constant Relieving factors: none Exacerbating factors: none Context: none Associated symptoms: denies other symptoms Treatments prior to arrival: none Related Data Previous Rx's ?Medication ?Instructions ?Recorded cephalexin 250 mg capsule 250 mg PO Q6H #28 caps 01/30/20 hydrocortisone 2.5 % topical cream 1 applic topical BID PRN rash #30 01/30/20 grams hydrocortisone 1 % topical 1 appl topical TID PRN rash #453.6 09/13/20 ointment (Anti-Itch grams (hydrocortisone)) hydroxyzine HCl 25 mg tablet 25 mg PO TID PRN itching #10 tabs 09/13/20 prednisone 20 mg tablet 60 mg (3 x 20 mg) PO DAILY #15 tabs 09/13/20 hydrocortisone 1 % topical cream 1 appl topical TID PRN rash #454 01/21/21 grams hydroxyzine HCl 25 mg tablet 25 mg PO TID PRN itching #30 tabs 01/21/21 prednisone 20 mg tablet 40 mg (2 x 20 mg) PO DAILY 5 days 01/21/21 #10 tabs hydrocortisone 2.5 % topical cream 1 appl topical BID PRN rash #30 02/06/21 grams hydrocortisone 1 % topical ointment 1 appl topical BID PRN skin 08/28/22 irritation #453.6 grams hydrocortisone 2.5 % topical cream 1 appl topical QID PRN rash #28 09/14/23 grams hydroxyzine HCl 25 mg tablet 25 mg PO TID PRN itching #30 tabs 09/14/23 prednisone 20 mg tablet 40 mg (2 x 20 mg) PO DAILY 5 days 09/14/23 #10 tabs Allergies Allergy/AdvReac Type Severity Reaction Status Date / Time apple [APPLE] Allergy Unknown ANAPHYLAXIS Verified 09/14/23 16:22 pollen extracts [POLLEN] Allergy Unknown SNEEZING Verified 09/14/23 16:22 Review of Systems Review of Systems: Yes all other systems are reviewed and are negative Constitutional: Constitutional: Reports as per [facility] Past Medical History Attestation statement: The following information was validated with the patient. Medical History Eczema Asthma Surgical History Hx of appendectomy Social History Social History Alcohol intake: never Substance Use Type: Marijuana Advance Directives: No Advance Directives Information Provided: No Physical Exam Vital Signs: Vital Signs: Last Vital Signs Temp 98.1 F 09/14/23 16:54 Pulse 87 09/14/23 16:54 Resp 20 09/14/23 16:54 BP 114/61 09/14/23 16:54 Pulse Ox 99 09/14/23 16:54 O2 Del Method Room Air 09/14/23 16:54 BMI result Body Mass Index 22.8 Const: General: cooperative, comfortable and no acute distress Orientation/consciousness: patient oriented x3 Limitations: no limitations HEENT: Head: Yes normal to inspection, Yes normocephalic and Yes atraumatic Ears: hearing grossly normal bilaterally General nose exam: Normal external nose present Face and sinus: Yes normal facial exam Mouth: Normal oral and palatal mucosa present, oropharynx normal and moist mucous membranes Throat: Yes posterior oropharynx normal Eyes: General: appearance normal, both eyes and all related structures Eyelids: Yes eyelids normal Conjunctivae: conjunctivae normal Sclerae: sclerae normal Pupils: Equal, round and reactive pupils present EOM: EOMs intact bilaterally Neck: Neck: Yes normal visual inspection, Yes full ROM and Yes no lymphadenopathy Lymphatic: no lymphadenopathy noted Chest: Chest palpation & inspection: normal inspection of the chest Resp: Effort & Inspection: normal respiratory effort and able to speak in complete sentences Auscultation: clear to auscultation bilaterally, no crackles, no rales, no rhonchi and no wheezes Cardio: Rate: regular rate Rhythm: regular rhythm Heart sounds: S1 normal heart sound present and S2 normal heart sound present GI: Inspection: Yes normal to inspection Skin: Other: Erythematous cutaneous plaques with scaling noted to flexor surfaces of bila teral elbows and throughout neck and eyebrows. No surrounding erythema. General skin exam: no rashes or lesions noted Trauma: no lacerations or abrasions Wounds: no wounds Neuro: General: patient oriented x3 and moves all extremities Cranial nerves: Yes Equal, round and reactive pupils present Extrem: General: Yes normal to inspection Right upper extremity: normal to inspection Left upper extremity: normal to inspection Right lower extremity: normal to inspection Left lower extremity: normal to inspection Medical Decision Making Medical Decision Making MDM Narrative: This is a 33-year-old male with a history of psoriasis and eczema, who presents emergency department with complaints of flare the last 2 weeks. He is tried [id number] cream which is cause his symptoms worsened. Has been seen in the past with good relief with hydrocortisone, prednisone and hydroxyzine. Does not have a primary care physician at this time and has not been seen by dermato logist as he has had difficulties with his health insurance. Patient was given information from registration for insurance help. 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 He understands agrees with plan. Periods do not appear to be infected therefore course of prednisone, hydroxyzine and hydrocortisone cream indicated. Differential diagnoses include psoriasis, atopic dermatitis, cellulitis, folliculitis. Discussed return precautions. He understands agrees with plan. Patient stable for discharge. Differential Diagnosis Differential Diagnoses: The differential diagnosis associated with the presentation includes See above Discharge Plan Discharge Clinical Impression: Eczema Patient Disposition: Home, Self-Care Instructions: Dyshidrotic Eczema (ED), Dermatitis (ED) Additional Instructions: Please fill the prescriptions. There are medications that are more effective that a primary care provider can prescribe that I cannot prescribe here from the emergency room. Please avoid putting this cream on your head. Please moisturize. We discussed using something called Eucerin cream, which is a thick white cream you can buy at the pharmacy. You may use this on your hands, and then wear gloves to bed. This may help a lot with your hand symptoms. Please return for any new or concerning symptoms. Prescriptions: New hydrocortisone 2.5 % cream 1 appl topical QID PRN (Reason: rash) Qty: 28 0RF prednisone 20 mg tablet 40 mg PO DAILY 5 Days Qty: 10 0RF hydroxyzine HCl 25 mg tablet 25 mg PO TID PRN (Reason: itching) Qty: 30 0RF No Action hydrocortisone [Anti-Itch (HC)] 1 % ointment 1 appl topical TID PRN (Reason: rash) Qty: 453.6 0RF prednisone 20 mg tablet 60 mg PO DAILY Qty: 15 0RF hydroxyzine HCl 25 mg tablet 25 mg PO TID PRN (Reason: itching) Qty: 10 0RF hydrocortisone 2.5 % cream 1 applic topical BID PRN (Reason: rash) Qty: 30 0RF cephalexin 250 mg capsule 250 mg PO Q6H Qty: 28 0RF hydrocortisone 1 % cream 1 appl topical TID PRN (Reason: rash) Qty: 454 0RF prednisone 20 mg tablet 40 mg PO DAILY 5 Days Qty: 10 0RF hydroxyzine HCl 25 mg tablet 25 mg PO TID PRN (Reason: itching) Qty: 30 0RF hydrocortisone 2.5 % cream 1 appl topical BID PRN (Reason: rash) Qty: 30 0RF hydrocortisone 1 % ointment 1 appl topical BID PRN (Reason: skin irritation) Qty: 453.6 0RF Interventions: ED Discharge Assessment Last Done: 09/14/23 16:54 Discharge Date/Time: 09/14/23 16:55 Print Language: Jordanian
[2023-09-14 16:54] VITALS: BP 114/61; PULSE 87; RESP 20; TEMP 36.7; O2SAT 99
== END 2023-09-14 16:55 | disposition home or self-care (01) ==
PROVIDERS: Emergency Provider Emergency Medicine
DX: L30.9 Dermatitis, unspecified (principal); R21 Rash and other nonspecific skin eruption; F12.90 Cannabis use, unspecified, uncomplicated
CPT/HCPCS: 99282; 99283

== ENCOUNTER 2023-11-05 04:34 | Emergency (ER) | payer SELFPAY ==
[2023-11-05 04:40] VITALS: BP 119/74; BP 132/76; PULSE 100; PULSE 98; RESP 20; TEMP 36.9; O2SAT 95; O2SAT 97; BMI 24.0
[2023-11-05 04:56] VITALS: BP 119/74; PULSE 86; RESP 20; TEMP 36.9; O2SAT 97
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
--- NOTE | 2023-11-05 06:11 | PC.NURSE ---
attempted to call sister for sober ride home, nobody answered, voicemail was left with patient permission. Patient belongings bagged up, at this time per the DrTaye patient does have his personal cell phone.
[2023-11-05 06:23] VITALS: BP 119/74; PULSE 86; RESP 20; TEMP 36.9; O2SAT 97
== END 2023-11-05 06:28 | disposition home or self-care (01) ==
PROVIDERS: Emergency Provider Emergency Medicine Emergency Medical Services
DX: S61.411A Laceration without foreign body of right hand, initial encounter (principal); Y04.8XXA Assault by other bodily force, initial encounter; F10.920 Alcohol use, unspecified with intoxication, uncomplicated; Y90.9 Presence of alcohol in blood, level not specified; R45.1 Restlessness and agitation; Y93.9 Activity, unspecified; Y92.410 Unspecified street and highway as the place of occurrence of the external cause; Y99.9 Unspecified external cause status
CPT/HCPCS: 12002; 99284

== ENCOUNTER 2024-06-14 21:18 | Emergency (ER) | payer SELFPAY ==
[2024-06-14 21:25] VITALS: BP 111/66; BP 128/84; PULSE 108; PULSE 97; RESP 19; TEMP 36.8; O2SAT 96; O2SAT 98; BMI 24.2
[2024-06-14 21:39] VITALS: BP 111/66; PULSE 97; RESP 19; TEMP 36.8; O2SAT 96
--- NOTE | 2024-06-14 21:40 | PC.NURSE ---
patient arrived via ems from work [address] patient having seizure like activity. patient alert and oriented upon arrival and asking to just leave. Dr Ramires to bedside and patient agreed to Ct scan but no blood work
--- NOTE | 2024-06-14 21:45 | ED_ITS ---
HPI - Seizure General Chief Complaint: Seizure Stated Complaint: Seizure Time Seen by Provider: 06/14/24 21:34 Source: patient and EMS Mode of arrival: EMS Limitations: no limitations History of Present Illness ED Provider: Dr. Lila Barnett HPI Narrative: Patient comes to the emergency room via ambulance for a seizure. According to the patient, he was at work, states that he started feeling weird, he knew that he was going to get a seizure, lowered himself to the ground then had a seizure. Patient states that he has had seizures in the past. Patient is not on any medications, does not want to be on any medications either. Patient states that he feels well, does not want any further workup. Related Data Previous Rx's ?Medication ?Instructions ?Recorded cephalexin 250 mg capsule 250 mg PO Q6H #28 caps 01/30/20 hydrocortisone 2.5 % topical cream 1 applic topical BID PRN rash #30 01/30/20 grams hydrocortisone 1 % topical 1 appl topical TID PRN rash #453.6 09/13/20 ointment (Anti-Itch grams (hydrocortisone)) hydroxyzine HCl 25 mg tablet 25 mg PO TID PRN itching #10 tabs 09/13/20 prednisone 20 mg tablet 60 mg (3 x 20 mg) PO DAILY #15 tabs 09/13/20 hydrocortisone 1 % topical cream 1 appl topical TID PRN rash #454 01/21/21 grams hydroxyzine HCl 25 mg tablet 25 mg PO TID PRN itching #30 tabs 01/21/21 prednisone 20 mg tablet 40 mg (2 x 20 mg) PO DAILY 5 days 01/21/21 #10 tabs hydrocortisone 2.5 % topical cream 1 appl topical BID PRN rash #30 02/06/21 grams hydrocortisone 1 % topical ointment 1 appl topical BID PRN skin 08/28/22 irritation #453.6 grams hydrocortisone 2.5 % topical cream 1 appl topical QID PRN rash #28 09/14/23 grams hydroxyzine HCl 25 mg tablet 25 mg PO TID PRN itching #30 tabs 09/14/23 prednisone 20 mg tablet 40 mg (2 x 20 mg) PO DAILY 5 days 09/14/23 #10 tabs Allergies Allergy/AdvReac Type Severity Reaction Status Date / Time apple [APPLE] Allergy Unknown ANAPHYLAXIS Verified 06/14/24 21:29 pollen extracts [POLLEN] Allergy Unknown SNEEZING Verified 06/14/24 21:29 Review of Systems Review of Systems: Constitutional : No Weight loss, No Fever, No Chills, No Night Sweats, No Fatigue, No Malaise ENT/Mouth : No Hearing loss, No Ear Pain, No Nasal Congestion, No Sinus Pain, No Hoarseness, No sore throat, No Rhinorrhea, No Swallowing Difficulty Eyes: No Eye Pain, No Swelling, No Redness, No Foreign Body, No Discharge, No Vision Changes Cardiovascular : No Chest Pain, No SOB, No Dyspnea on Exertion, No Orthopnea, No Edema, No Palpitations Respiratory : No Cough, No Sputum, No Wheezing, No Smoke Exposure, No Dyspnea Gastrointestinal : No Nausea, No Vomiting, No Diarrhea, No Constipation, No abdominal Pain, No Hematochezia, No Melena Genitourinary : no irregular bleeding, No Dysuria, No Urinary Frequency, No Hematuria, No Urinary Incontinence, No Urgency, No Flank Pain, No Urinary Flow Changes, No Hesitancy Musculoskeletal : No joint pain, No Myalgias, No Joint Swelling Skin : No Skin Lesions, No rash Neuro : Complaining of a seizure earlier today No Weakness, No Numbness, No Paresthesias, No Loss of Consciousness, No Dizziness, No Headache Psych : No Anxiety/Panic, No Depression, No SI/HI/AH/VH, No Social Issues, Heme/Lymph: No Bruising, No Bleeding,No Lymphadenopathy Endocrine : No Polyuria, No Polydipsia, No Temperature Intolerance PMFSH Past Medical History Medical History (Updated 06/14/24 @ 21:48 by Lila Barnett MD) Seizures Eczema Asthma Surgical History Hx of appendectomy Social History Social History Alcohol intake: current Alcohol intake frequency: a few times a month Alcohol type: beer and hard liquor Smoked in Last 30 Days: Yes Use of substances other than those prescribed or required for medical reasons: Yes Substance Use Type: Crack/Cocaine and Marijuana Physical Exam Vital Signs: Vital Signs: Last Vital Signs Temp 98.2 F 06/14/24 21:39 Pulse 97 06/14/24 21:39 Resp 19 06/14/24 21:39 BP 111/66 06/14/24 21:39 Pulse Ox 96 06/14/24 21:39 O2 Del Method Room Air 06/14/24 21:39 BMI result Body Mass Index 24.2 Const: Other: Appearance: Alert. Oriented X3. No acute distress. Eyes: Pupils equal, round and reactive to light. ENT: Pharynx normal. Neck: Normal inspection. Neck supple. No lymph nodes noted. No crepitus CVS: Normal heart rate and rhythm. Pulses normal. Normal S1 and S2 Respiratory: No respiratory distress. Breath sounds normal. No Wheezing. No rales Abdomen: Soft and nontender. No rigidity. No distention. Skin: Skin warm and dry. Normal skin color. Normal skin turgor. Extremities: No lower extremity edema. No Lacerations. No Rash Neuro: Oriented X 3. No motor deficit. No sensory deficit. Moving all extremities. No slurred speech. CN 2 through 12 grossly intact Psych: calm, cooperative, normal affect Medical Decision Making Medical Decision Making MDM Narrative: Since the patient arrived to the emergency room, patient is awake, alert and oriented x3. Patient states that he feels well. Patient declined any further workup. Patient states that he is terrified of needles and will not allow us to do any blood work. We have a CT scan from 2022 when patient had a seizure, there were no acute findings. Patient states that he has not been seen by a neurologist. Patient states that he does not know why he has seizures. However, I reviewed patient's past medical records, seems that patient uses cocaine which may be inducing his seizures. I discussed with the patient that ideally we should get baseline lab work, so at least we can start him on meds since he has had multiple episodes of seizures. Patient states that at this time he is not interested in starting meds. However, if we gave him the follow-up number for Neurology he will call and schedule an appointment. At this time, patient states that he has fine and would like to be discharged. Patient is awake, alert and oriented x3, normal steady gait. Does not seem to be under the influence of alcohol or drugs. Per patient's request, patient being discharged Discharge Plan Discharge Clinical Impression: Generalized seizure Patient Disposition: Home, Self-Care Instructions: Recurrent Seizures in Adults (ED) Additional Instructions: Please follow-up with your primary care physician tomorrow. If you have any worsening or new symptoms, please return to the emergency room or call 911 Prescriptions: No Action hydrocortisone [Anti-Itch (HC)] 1 % ointment 1 appl topical TID PRN (Reason: rash) Qty: 453.6 0RF prednisone 20 mg tablet 60 mg PO DAILY Qty: 15 0RF hydroxyzine HCl 25 mg tablet 25 mg PO TID PRN (Reason: itching) Qty: 10 0RF hydrocortisone 2.5 % cream 1 applic topical BID PRN (Reason: rash) Qty: 30 0RF cephalexin 250 mg capsule 250 mg PO Q6H Qty: 28 0RF hydrocortisone 1 % cream 1 appl topical TID PRN (Reason: rash) Qty: 454 0RF prednisone 20 mg tablet 40 mg PO DAILY 5 Days Qty: 10 0RF hydroxyzine HCl 25 mg tablet 25 mg PO TID PRN (Reason: itching) Qty: 30 0RF hydrocortisone 2.5 % cream 1 appl topical BID PRN (Reason: rash) Qty: 30 0RF hydrocortisone 1 % ointment 1 appl topical BID PRN (Reason: skin irritation) Qty: 453.6 0RF hydrocortisone 2.5 % cream 1 appl topical QID PRN (Reason: rash) Qty: 28 0RF prednisone 20 mg tablet 40 mg PO DAILY 5 Days Qty: 10 0RF hydroxyzine HCl 25 mg tablet 25 mg PO TID PRN (Reason: itching) Qty: 30 0RF Referrals: Mina Gomez MD [Physician] - 1 day Print Language: Icelandic
[2024-06-14 22:09] VITALS: BP 111/66; PULSE 97; RESP 19; TEMP 36.8; O2SAT 96
== END 2024-06-14 21:55 | disposition home or self-care (01) ==
PROVIDERS: Emergency Provider Emergency Medicine
DX: G40.409 Other generalized epilepsy and epileptic syndromes, not intractable, without status epilepticus (principal)
CPT/HCPCS: 99282; 99284

== ENCOUNTER 2024-12-12 21:56 | Inpatient (IN) | payer OTHER, SELFPAY ==
--- OUTSIDE RECORDS SUMMARY | 2005-05-13 12:42 | XMS_ITS | Continuity of Care Document ---
Author Organization [facility] Address [address] [place] [address] Phone Care Team Providers Care Gambling Floor Supervisor Name Role Phone Macario Biggs MD Unavailable Unavailable Advance Directives Directive Yes / No Effective Date File Name No Information Encounters Encounter Description Practice Location Reason(s) For Visit Diagnoses Date Provider Providers Copied on Encounter [facility], [address] [place], [place], [id number], tel:[phone] [facility] Office 93 No Information Dian Sorto. [address], [address], [place], [place], [facility], . tel:[phone] Family History Family Member Type Diagnosis Age At Onset No Information Payers Payer name Insurance type Covered constitution party ID Authoriza tion(s) No Information Social [...]
--- NOTE | 2024-12-12 | ECG_ITS ---
Test Reason : overdose Blood Pressure : */* mmHG Vent. Rate : 86 BPM Atrial Rate : 86 BPM P-R Int : 140 ms QRS Dur : 80 ms QT Int : 346 ms P-R-T Axes : 19 14 40 degrees QTcB Int : 414 ms Normal sinus rhythm Normal ECG When compared with ECG of 28-Aug-2022 09:04, No significant change was found Referred By: Generic ED Physician Electronically Signed By: NICKIE KRAUS MD
--- NOTE | ~2024-12-12 | XR_ITS ---
EXAMINATION: XR CHEST CLINICAL INFORMATION: pain with cough left side COMPARISON: None available. TECHNIQUE: Frontal view of the chest was obtained. FINDINGS: No consolidation, pleural effusion or pneumothorax. No hyperinflation. Cardiomediastinal silhouette size is normal. Osseous structures are intact. Mild S-shaped curvature of the thoracic spine which could be positional. XR/XR chest 1V IMPRESSION: No acute airspace disease. Electronically signed by: Dariusz Franks MD 12/14/2024 11:02 AM EDT
--- NOTE | ~2024-12-12 | MR_ITS ---
CLINICAL HISTORY: hx of seizures MR Brain with and without intravenous contrast Comparison: None provided Findings: Moderate white matter pathology is nonspecific. Differential considerations include demyelination process such as multiple sclerosis given multiple lesions perpendicular to the mckeon of the lateral ventricles. Greater than 20 supratentorial lesions present at this time. Greater than 10 infratentorial lesions, predominantly in the lata. No restricted diffusion acute brain infarction. Mild basal ganglia mineralization. No acute intracranial hemorrhage or peripheral siderosis. No midline shift or hydrocephalus. No enhancing brain mass, accounting for artifacts. Mild faint enhancement , and additional to vascular enhancement may reflect mild active demyelination. No definite optic nerve enhancement to confirm or defined current or recent optic neuritis by imaging. Motion artifacts noted in the orbits/globes. Fluid and mucosal thickening of the paranasal sinuses are multifocal. Trace mastoid effusions. IMPRESSION: 1. Mild white matter lesions are nonspecific and concerning for demyelination process such as multiple sclerosis, with faint enhancement as can be seen with active or recent demyelination. 2. No midline shift or hydrocephalus. No enhancing brain mass. 3. No restricted diffusion acute brain infarction. 4. Fluid and mucosal thickening of the paranasal sinuses nonspecific and can be associated with sinusitis This document has been electronically signed by: Artur Doherty MD on 12/15/2024 19:59:48
[2024-12-12 21:59] VITALS: BP 115/71; PULSE 92; RESP 12; TEMP 36.9; O2SAT 97; BMI 25.1
--- OUTSIDE RECORDS SUMMARY | 2024-12-12 22:30 | XMS_ITS | Encounter Summary ---
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 Name Role Phone Kenton Galaviz MD Primary Care Provider Unavailabl e Encounter Details Date Type Department Care Team (Late st Contact Info) Description 07/26/2009 Documentation EM Family Medicine [address] [place] [address] Family Medicine, Physician [address] [place], [place] [id number] Social History Tobacco Use Types Packs/Day Years Used Date Smoking Tobacco: Never Assessed Sex and Gender Information Value Date Recorded Sex Assigned at Not on file Legal Sex Male 4:44 PM EDT Gender Identity Not on file Sexual Orientation Not on file documented as of this encounter Plan of Treatment Not on file documented as of this encounter Visit Diagnoses Not on filedocumented in this encounter Care Teams Shoelace Tipping Machine Operator Relationship Specialty Start Date End Date Kenton Galaviz MD PCP - General 12/05/16 documented as of this encounter
--- NOTE | 2024-12-12 22:46 | PC.NURSE ---
Called Angeline at poison control and provided with information. Pt stated to this nurse taking 280mg of Tramadol and stated to triage nurse taking 280, 1mh Klonopin. This information and EKG information provided to poison control. Angeline advises to supportive measures at this time and a repeat EKG in two hours. Poison control to be called back once labs are available @ [phone]. Phosphate level added to the labs per Angeline.
[2024-12-12 22:52] LABS: Hematocrit 44.4 % (42.0-52.0); Hemoglobin 15.2 g/dl (14.0-18.0); Imm Gran Abs Auto 0.02 X10*3/uL (0.00-0.03); Imm Gran Pct Auto 0.3 % (0.0-0.4); Lymphocytes Absolute Auto 1.8 X10*3/uL (1.2-4.9); MANUAL DIFF FLAG SCAN; Mean Corpuscular HGB Conc 34.2 g/dl (31.0-36.0); Mean Corpuscular Hemoglobin 30.4 pg (27.0-33.0); Mean Corpuscular Volume 88.8 fL (80.0-98.0); NRBC Abs Auto 0.000 X10*3/uL (0.0-0.012); NRBC Pct Auto 0.0 /100WBC (0.0-0.2); PLT CLUMP 1; Red Blood Count 5.00 X10*6/uL (4.60-5.80); SCAN SMEAR FLAG 1
[2024-12-12 22:55] LABS: White Blood Count 7.5 X10*3/uL (4.8-10.8)
[2024-12-12 23:04] LABS: Platelet Count 162 X10*3/uL (160-400)
[2024-12-12 23:05] LABS: Acetaminophen LAB < 3 mcg/mL (<30); Salicylate < 5.0 mg/dL (15-30)
[2024-12-12 23:08] LABS: Alanine Aminotransferase 36 U/L (0-40); Albumin Level 3.8 g/dL (3.5-5.0); Alkaline Phosphatase 76 U/L (39-117); Anion Gap 18 (12-20); Aspartate Amino Transferase 53 U/L (5-37); Blood Urea Nitrogen 13 mg/dL (9-16); Calcium 9.0 mg/dL (8.4-10.2); Carbon Dioxide 18 mmol/L (22-29); Chloride 110 mmol/L (96-108); Creatinine Clr Calc Pharmacy 122.7; Estimated Glomerular Filt Rate > 60; Magnesium 2.0 mg/dL (1.6-2.6); Potassium 4.1 mmol/L (3.3-5.1); Sodium 142 mmol/L (135-145); Total Protein 7.0 g/dL (6.5-8.0)
[2024-12-12 23:15] LABS: Troponin-I High Sensitivity < 2.7 ng/L (<3.5-35.0)
[2024-12-13] VITALS (7 sets, daily range): BP systolic 94–107; BP diastolic 62–70; PULSE 62–86; RESP 15–22; TEMP 36.6–37.1; O2SAT 95–99
--- NOTE | 2024-12-13 | ECG_ITS ---
Test Reason : OD Blood Pressure : */* mmHG Vent. Rate : 68 BPM Atrial Rate : 68 BPM P-R Int : 146 ms QRS Dur : 84 ms QT Int : 384 ms P-R-T Axes : 42 50 27 degrees QTcB Int : 408 ms Normal sinus rhythm Normal ECG When compared with ECG of 12-Dec-2024 22:08, No significant change was found Referred By: Generic ED Physician Electronically Signed By: NICKIE KRAUS MD
--- NOTE | 2024-12-13 01:01 | PC.NURSE ---
RN spoke to poison control to inform them of the EKG and labs. Per poison control they recommend 1 L of NS and repeat labs in 4 hrs d/y anion gap and total creatinine k levels. RN to inform provider.
--- NOTE | 2024-12-13 01:07 | ED_ITS ---
HPI - Overdose General Chief Complaint: Overdose Stated Complaint: OD Time Seen by Provider: 12/13/24 01:06 Source: patient and police Mode of arrival: ambulatory Limitations: altered mental status History of Present Illness ED Provider: Dr. Nani Yun HPI Narrative: History is limited secondary to patient's altered mentation. 34-year-old male with unknown past medical history presenting after being found outside the emergency department by security. Patient appeared intoxicated. Reportedly took 280 Klonopin 1mg throughout the day today. He bought the pills on the street after he heard that his mother . Denies feeling suicidal but is extremely depressed. Denies alcohol ingestion or other illicit substance use. No recent illness. Unable to obtain further information at this time. Related Data Home Medications ?Medication ?Instructions ?Recorded ?Confirmed albuterol sulfate 90 mcg/actuation inhalation 12/14/24 aerosol inhaler Previous Rx's ?Medication ?Instructions ?Recorded cephalexin 250 mg capsule 250 mg PO Q6H #28 caps 01/29 hydrocortisone 2.5 % topical cream 1 applic topical BI D PRN rash #30 01/30/20 grams hydroxyzine HCl 25 mg tablet 25 mg PO TID PRN itching #10 tabs 09/13/20 Allergies Allergy/AdvReac Type Severity Reaction Status Date / Time apple (APPLE) Allergy Unknown ANAPHYLAXIS Verified 12/12/24 22:02 pollen extracts (POLLEN) Allergy Unknown SNEEZING Verified 12/12/24 22:02 Review of Systems 2 Review of Systems: Yes Unobtainable due to mental status PMFSH Past Medical History Medical History Seizures Eczema Asthma Surgical History Hx of appendectomy Social History Social History Household Members: None Housing: Homeless Do you presently have visiting nurse or other home services: No Alcohol intake: current Alcohol intake frequency: a few times a month Alcohol type: beer and hard liquor Patient Tobacco Use Status: Current everyday Tobacco user Tobacco use type: Cigarette Cigarettes Per Day: 3 Smoked in Last 30 Days: Yes Patient Interested in Nicotine Replacement: Yes Patient Given Instructions on How to Stop Smoking: No Second Hand Smoke Exposure: No Use of substances other than those prescribed or required for medical reasons: Yes Substance Use Type: Prescription Drugs Currently Displaying Signs/Symptoms of Drug Intoxication Withdrawal: No Have you been hit, kicked, punched, or otherwise hurt by someone within the past year? If so, by whom?: No Do you feel safe in your current relationship?: Yes Is there a partner from a previous relationship who is making you feel unsafe now?: No Are you made to feel afraid or neglected: No Advance Directives: No Advance Directives Information Provided: No Do you have thoughts of harming others: None Do you have a plan to hurt others: No Plan Recently lost weight without trying: No How much weight loss: 14-23 pounds Eating poorly because of decreased appetite: Yes Nutrition screen score: 3 Nutrition Risks: No Nutritional Risk Poor oral hygiene: No Physical Exam 2 Vital Signs: Vital Signs: Last Vital Signs Temp 98.6 F 12/15/24 07:52 Pulse 82 12/15/24 07:52 Resp 20 12/15/24 07:52 BP 107/59 L 12/15/24 07:52 Pulse Ox 98 12/15/24 07:52 O2 Del Method Room Air 12/15/24 07:52 BMI result Body Mass Index 25.1 Course Reevaluation(s) Reevaluation #1: DR. Camargo's progress note,12/13/2024; 34-year-old male was found unresponsive outside hospital claimed that his mother just yesterday patient claimed he took 200 ED 1 mg Klonopin worried from the street yesterday, patient now is awake, alert, VSS, evaluated by care team, will start physician observation, put him under section 12, will be a bed search. Time: 10:00 Reevaluation #2: very aggressive posturing at staff making threats calling male securities homo's and faggots he is making threats trying to run out of the ED at this time he is a section 12 he will need IM medications and possibly physical restraints given his outburst and inability to deescalate he refuses PO medications. Patient spit on multiple staff members, told staff I boxed for 2 years, when I see you in the street. I am going to fuck you up. That is a promise. Desirae López DO 12/13/24 1203 Reevaluation #3: 123pm still aggressive threatening staff, using the N-word, staff cannot approach at this time given concern for staff coty will dose with IM ketamine. I want to be able to remove his restraints as safely and quickly as possible and he is still threatening Desirae López, DO 12/13/24 1323 Additional Reevaluation(s): DR. Camargo's progress note; 12/14/2024; 10:00. VSS, no issue reported by nursing overnight, under section 12 until placement, continue with physician observation, bed search is underway. Consultations Consultation #1: Discontinue physician observation now, patient is admitted to . Time: 11:30 Medications Administered Generic Name Dose Route Start Last Admin Trade Name Freq PRN Reason Stop Dose Admin Hydrocortisone 1 appl 12/14/24 11:30 12/15/24 08:02 Hydrocortisone 1 % Cream 28.35 Gm Tube TOPICAL 1 appl BID PRN Administration rash Hydroxyzine HCl 25 mg 12/14/24 11:25 12/14/24 23:32 Hydroxyzine Hcl 25 Mg Tablet PO 25 mg Q6H PRN Administration mild anxiety Nicotine 21 mg 12/15/24 09:00 12/15/24 08:38 Nicotine 21 Mg Patch.Td24 TRANSDERMA 21 mg DAILY GALE Administration Nicotine Polacrilex 4 mg 12/14/24 11:25 12/14/24 20:33 Nicotine Polacrilex 2 Mg Gum BUCCAL 4 mg Q2H PRN Administration Nicotine Cravings Thiamine HCl 100 mg 12/15/24 09:00 12/15/24 08:38 Thiamine Hcl 100 Mg Tablet PO 100 mg DAILY GALE Administration Trazodone HCl 50 mg 12/14/24 11:25 12/14/24 23:33 Trazodone Hcl 50 Mg Tablet PO 50 mg BEDTIME MRX1 PRN Administration Insomnia Discontinued Medications Generic Name Dose Route Start Last Admin Trade Name Freq PRN Reason Stop Dose Admin Lactated Ringer's 1,000 mls @ 999 mls/hr 12/13/24 01:07 12/13/24 03:54 Lr IV 12/13/24 02:07 Infused .Q1H1M ONE Infusion Ketamine HCl 150 mg 12/13/24 13:22 12/13/24 13:25 Ketamine Hcl 500 Mg/5 Ml Vial IM 12/13/24 13:23 150 mg ONCE ONE Administration Midazolam HCl 5 mg 12/13/24 12:00 12/13/24 12:00 Midazolam Hcl 5 Mg/Ml Vial IM 12/13/24 12:01 5 mg ONCE ONE Administration Nicotine 14 mg 12/14/24 11:12 12/14/24 11:19 Nicotine 14 Mg Patch.Td24 TRANSDERMA 12/14/24 11:13 Not Given ONCE ONE Nicotine 21 mg 12/14/24 11:18 12/14/24 11:22 Nicotine 21 Mg Patch.Td24 TRANSDERMA 12/14/24 11:19 21 mg ONCE ONE Administration Olanzapine 10 mg 12/13/24 12:00 12/13/24 12:00 Olanzapine 10 Mg Vial IM 12/13/24 12:01 10 mg ONCE ONE Administration Triamcinolone Acetonide 1 appl 12/13/24 20:38 12/13/24 22:16 Triamcinolone Acet 0.1 % Cream 15 Gm Tube TOPICAL 12/13/24 20:39 1 appl ONCE ONE Administration Protocol Medical Decision Making Medical Decision Making MDM Narrative: Patient presents with a chief complaint of possible overdose. Differential diagnosis includes life-threatening toxidrome such as anticholinergic syndrome, serotonin syndrome, sympathomimetic, opioid induced, sedative hypnotic, among others. Also includes co-ingestions, acidosis, intracranial process such as mass, hemorrhage, or CVA. Patient evaluated to determine if there is adequate GCS to maintain their airway as well as for hemodynamic stability. Placed on cardiac catheterization technician for blood pressure, heart rhythm and oxygen levels. Frequent reevaluations to ensure no worsening neurologic or hemodynamic instability. Poison control center contacted and recommendations include fluids and trending his CPK. Patient remains hemodynamically stable, resting comfortably. Awaiting sober re- evaluation and final disposition. Signing out to oncoming provider. Differential Diagnosis Differential Diagnoses: The differential diagnosis associated with the presentation includes (As above) Admission/Observation Consideration of admission/observation: Escalation of care including admission/observation considered Lab Data [facility] Lab Attestation statement: I reviewed the patient's lab results. 12/12/24 22:38 12/15/24 08:35 Labs: Lab Results 12/12/24 12/13/24 12/13/24 Range/Units 22:38 03:08 10:41 WBC 7.5 (4.8-10.8) X10*3/uL RBC 5.00 (4.60-5.80) X10*6/uL Hgb 15.2 (14.0-18.0) g/dl Hct 44.4 (42.0-52.0) % MCV 88.8 (80.0-98.0) fL MCH 30.4 (27.0-33.0) pg MCHC 34.2 (31.0-36.0) g/dl RDW 12.2 (11.0-16.0) % Plt Count 162 D (160-400) X10*3/uL MPV 11.2 (9.4-12.4) fL Immature Gran % (Auto) 0.3 (0.0-0.4) % Neut % (Auto) 62.2 (45-73) % Lymph % (Auto) 23.8 (20-40) % Jerome % (Auto) 11.6 H (2-11) % Eos % (Auto) 1.2 (0-4) % Baso % (Auto) 0.9 (0-2) % Lymph # (Auto) 1.8 (1.2-4.9) X10*3/uL Jerome # (Auto) 0.9 (0.1-1.2) X10*3/uL Eos # (Auto) 0.1 (0.0-0.4) X10*3/uL Baso # (Auto) 0.1 (0.0-0.2) X10*3/uL Abs Immat Gran (auto) 0.02 (0.00-0.03) X10*3/uL Absolute Neuts (auto) 4.6 (2.0-8.3) x10*3/uL Absolute Nucleated RBC 0.000 (0.0-0.012) X10*3/uL Nucleated RBC % (auto) 0.0 (0.0-0.2) /100WBC Smear Tech's Comments VERIFIED Sodium 142 147 H (135-145) mmol/L Potassium 4.1 3.3 (3.3-5.1) mmol/L Chloride 110 H 107 (96-108) mmol/L Carbon Dioxide 18 L 29 (22-29) mmol/L Anion Gap 18 14 (12-20) BUN 13 12 (9-16) mg/dL Creatinine 0.80 0.69 (0.5-1.4) mg/dL Estim Creat Clear Calc 122.7 142.3 Estimated GFR > 60 > 60 Random Glucose 86 80 (60-115) mg/dL Calcium 9.0 8.9 (8.4-10.2) mg/dL Phosphorus 3.7 (2.7-4.5) mg/dL Magnesium 2.0 (1.6-2.6) mg/dL Total Bilirubin 1.0 1.0 (0.0-1.0) mg/dL AST 53 H 44 H (5-37) U/L ALT 36 37 (0-40) U/L Alkaline Phosphatase 76 74 (39-117) U/L Total Creatine Kinase 426 H 350 H (38-174) U/L Troponin I High Sens < 2.7 (<3.5-35.0) ng/L Total Protein 7.0 6.3 L (6.5-8.0) g/dL Albumin 3.8 4.0 (3.5-5.0) g/dL Urine Color Dark Yellow Urine Appearance Clear Urine pH 6.0 (5.0-9.0) Ur Specific [place] >= 1.030 H (1.005-1.025) Urine Protein 30 (1+) H (Neg-Trace) mg/dL Urine Glucose (UA) Negative (Negative) mg/dL Urine Ketones 15 (Negative) mg/dL Urine Blood Negative (Negative) Urine Nitrite Negative (Negative) Ur Leukocyte Esterase Negative (Negative) Urine RBC 0-2 (0-2) /HPF Urine WBC 0-5 (0-5) /HPF Ur Squamous Epith Cells 0-2 (0-2) /HPF Urine Bacteria None Seen (None Seen) Hyaline Casts 3-5 (0-2) /LPF Salicylates < 5.0 L (15-30) mg/dL Urine Opiates Screen Not Detected (Not Detect) Ur Buprenorphine Scrn Not Detected (Not Detect) ng/mL Ur Oxycodone Screen Not Detected (Not Detect) ng/mL Urine Methadone Screen Not Detected (Not Detect) ng/mL Urine Fentanyl Screen Not Detected (Not Detect) Acetaminophen < 3 (<30) mcg/mL Ur Barbiturates Screen Not Detected (Not Detect) Ur Phencyclidine Scrn Not Detected (Not Detect) Ur Amphetamines Screen Not Detected (Not Detect) U Benzodiazepines Scrn POSITIVE H (Not Detect) Urine Cocaine Screen POSITIVE H (Not Detect) U Marijuana (THC) Screen POSITIVE H (Not Detect) Independent Interpretation Interpretation: My independent interpretation of the ECG reveals normal sinus rhythm with rate of 86, normal axis, normal intervals, no ST elevations or depressions to suggest ischemic changes, relatively unchanged from previous on 08/28/2022. Independent Historian Clinical information obtained from an independent historian. History obtained from or confirmed by: Other (security) Chronic Conditions Patient?s care impacted by: Other (seizure disorder) Social Determinants Patient?s care significantly limited by Social Determinants of Health including: Problems related to primary support group Critical Care Time Critical Care Time Critical Care Time: Yes Total Critical Care Time: 45 Attestation: review of records, medical consult, repeat IM medications for severe agitation and aggression to prevent patient and staff harm, repeat assessments. I attest to this time spent taking care of the patient Discharge Plan Discharge Clinical Impression: Benzodiazepine overdose Patient Disposition: Admitted As Inpatient Discharge Date/Time: 12/14/24 11:26
[2024-12-13] MEDS: Lactated Ringers 1,000 ML 999 ML IV (01:20)
[2024-12-13 03:36] LABS: Alanine Aminotransferase 37 U/L (0-40); Albumin Level 4.0 g/dL (3.5-5.0); Alkaline Phosphatase 74 U/L (39-117); Anion Gap 14 (12-20); Aspartate Amino Transferase 44 U/L (5-37); Blood Urea Nitrogen 12 mg/dL (9-16); Calcium 8.9 mg/dL (8.4-10.2); Carbon Dioxide 29 mmol/L (22-29); Chloride 107 mmol/L (96-108); Creatinine Clr Calc Pharmacy 142.3; Estimated Glomerular Filt Rate > 60; Potassium 3.3 mmol/L (3.3-5.1); Sodium 147 mmol/L (135-145); Total Protein 6.3 g/dL (6.5-8.0)
--- NOTE | 2024-12-13 05:46 | PC.NURSE ---
RN called poison control to f/u on the 4 hr labs. Poison control had no further recommendations. Stated pt is OK for psyc admission.
--- NOTE | 2024-12-13 07:47 | PC.NURSE ---
assumed care of patient at 0700, patient is awake and alert but drowsy. patient states that he took all the medications yesterday because the weed wasnt working patient denies SI/HI, states his mom yesterday. patient is in hospital attire at this time, ED provider placed order for CARE consult. patient states someone is commiting fraud under his name in [place] and he needs to get to [place] at some point. patient resp even and unlabored
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
--- NOTE | 2024-12-13 09:37 | MHC.CARE ---
Pt is uninsured at this time. T/W emailed financial services to meet with Pt to discuss options.
--- NOTE | 2024-12-13 09:38 | MHC.CARE ---
Pt meets the criteria for IPLOC secondary to an intentional OD in a suicide attempt. Section 12a in chart however Pt is agreeable to TX. ED provider in agreement with disposition.
[2024-12-13 10:48] LABS: Appearance Urine Clear; Glucose Urine UA Negative (Negative); PH 6.0 (5.0-9.0); Specific Gravity - Urine >= 1.030 (1.005-1.025); UMIC TRIGGER UACC YES
[2024-12-13 10:58] LABS: Cannabinoid Screen Urine POSITIVE (Not Detect)
[2024-12-13] MEDS: OLANZapine 10 MG VIAL IM (12:00)
--- NOTE | 2024-12-13 12:58 | PC.NURSE ---
at 1155 patient became uncooperative, attempting to elope unit, security was called and patient became threatening towards staff, patient ultimately walked back to his room ED10. patient offered po medications and refused, yelling racial and derogatory slurs at staff. patient informed he would receive IM injections, patient sat on the bed and spit at security and medical staff assisting this RN in medical practitioners. patient restrained in 4 points, EDUCATION TEACHER intact, patient medicated per MAR. patient tld this RN that he would call his girlfriend to come kill this RN and that he knows where this RN works. patient refusing vital signs at this time, moving so vitals can not be taken. patient has sitter 1:1 at this time. see restraint sheets for additional information.
--- NOTE | 2024-12-13 14:39 | PC.NURSE ---
patient required second IM medication per JUN. see IM restraint sheet for more info/vitals. patient is awake but drowsy/ tele monitor on. resp even and unlabored. sitter 1:1
--- NOTE | 2024-12-13 21:49 | PC.NURSE ---
Assumed care of this Pt at this time. Pt ambulated into POD with steady gait. Pt requesting cell phone, made aware of policy.
[2024-12-13] MEDS: Triamcinolone Acet 0.1 % Cream 15 GM TUBE 1 APPL TOPICAL (22:16)
--- NOTE | 2024-12-13 22:22 | PC.NURSE ---
Cream applied to rash, med placed in Pt specific bin in POD Pyxis.
[2024-12-14 06:10] VITALS: BP 115/71; PULSE 82; RESP 20; TEMP 36.7; O2SAT 100
[2024-12-14 10:29] VITALS: BP 117/76; PULSE 100; RESP 18; TEMP 36.4; O2SAT 98
--- NOTE | 2024-12-14 10:30 | PC.NURSE ---
assumed care of patient at 0700, patient is awake and alert, seen sitting in room. patient apologized to this RN about his behavior yesterday, patient reassured that today is a new day. patient vented about significant life stressers. VSS
[2024-12-14] MEDS: Nicotine 21 MG PATCH.TD24 TRANSDERMA (11:22)
[2024-12-14 11:55] VITALS: BP 125/79; PULSE 86; RESP 17; TEMP 37; O2SAT 99
[2024-12-14] MEDS: Hydrocortisone 1 % Cream 28.35 GM TUBE 1 APPL TOPICAL ×2 (14:21→19:07)
--- NOTE | 2024-12-14 14:46 | HO.PSYADMNOT ---
HPI Date of Service: 12/14/24 Chief Complaint: SI Sources of Information: patient interviewed, chart reviewed and crisis/core team assessment reviewed HPI Subjective Notes: Khan Warning and Conditional Voluntary Narrative: Patient is a 34-year-old male who was found by security unresponsive outside of [facility] due to overdosing on Klonopin secondary to his mother passing away yesterday. Per crisis report, patient reported he overdosed on 280 1mg Klonopin secondary to his mother passing away yesterday. Patient reports he is not prescribed the medication and bought it off the street. Patient denied SI/HI/VH/AH. Patient denies any prior crisis assessments or suicide attempts. Denies history of inpatient psychiatric hospitalizations. He reports not having an outpatient therapist or prescriber in years . Patient presented tearful, he denies he took the medications in a suicide attempt and reported the weed was not working . He was upset his mother suddenly yesterday. Patient presents depressed and hopeless. During admission assessment, patient presents alert and oriented x3. Calm and cooperative. This is patient's 1st inpatient psychiatric hospitalization. Patient reports feeling sad ; patient stated, I just wanted to be knocked out. The weed was not doing anything. I didn't want to . I have my daughter who is my see. I'm never depressed. I'm just depressed because of my mom. I was not ready. She at 62 from Alzheimer's . Patient denies history of SA/SIB. He currently denies SI/HI/VH/AH. Patient reports he smokes marijuana daily and has 1-2 alcoholic drinks every other day. Denies history of inpatient psychiatric hospitalizations. Denies history of detox admissions. States he had a psychiatrist when he was 14 years old but can not recall medications that were prescribed;states he has not had any psychiatric tx since the age of 14. Patient reports his sleep and appetite are good. Patient reports he is not interested in psychiatric medications nor, in a referral to an outpatient therapist. Patient reports he would like to talk to neurologist due to having a history of seizures reporting his last seizure was a month ago. Past Psychiatric History: Denies history of inpatient psychiatric hospitalizations. denies history of detox admissions. States he had a psychiatrist when he was 14 years old but can not recall medications that were prescribed; states he has not had any psychiatric tx since the age of 14. Medical Evaluation Reviewed: Yes PMFSH Medical History Seizures Eczema Asthma Surgical History Hx of appendectomy Family History: Mother: Alzheimer's Social History: Lives alone. Single. One 9 y/o daughter and a 3 y/o son who both live with their biological mothers. Highest level of education completed, 8th grade. Unemployed. Substance History: Patient reports smoking marijuana daily. He reports drinking a few beers every other day. U tox positive for marijuana, cocaine and benzodiazepines. Trauma History: denies Diagnostics Vital Signs (24Hr): Vital Signs - 24 hr 12/13/24 15:34 12/14/24 06:10 12/14/24 10:29 Temperature 98.2 F 98.1 F 97.6 F Pulse Rate 86 82 100 Respiratory Rate 20 20 18 Blood Pressure 99/69 115/71 117/76 Pulse Oximetry 99 100 98 Oxygen Delivery Method Room Air Room Air Room Air 12/14/24 11:55 Temperature 98.6 F Pulse Rate 86 Respiratory Rate 17 Blood Pressure 125/79 Pulse Oximetry 99 Oxygen Delivery Method Room Air BMI result Body Mass Index 20.0 Labs 12/12/24 22:38 12/13/24 03:08 Labs: Laboratory Results - last 48 hr 12/12/24 12/13/24 12/13/24 22:38 03:08 10:41 WBC 7.5 RBC 5.00 Hgb 15.2 Hct 44.4 MCV 88.8 MCH 30.4 MCHC 34.2 RDW 12.2 Plt Count 162 D MPV 11.2 Immature Gran % (Auto) 0.3 Neut % (Auto) 62.2 Lymph % (Auto) 23.8 Armstrong % (Auto) 11.6 H Eos % (Auto) 1.2 Baso % (Auto) 0.9 Lymph # (Auto) 1.8 Armstrong # (Auto) 0.9 Eos # (Auto) 0.1 Baso # (Auto) 0.1 Abs Immat Gran (auto) 0.02 Absolute Neuts (auto) 4.6 Absolute Nucleated RBC 0.000 Nucleated RBC % (auto) 0.0 Smear Tech's Comments VERIFIED Sodium 142 147 H Potassium 4.1 3.3 Chloride 110 H 107 Carbon Dioxide 18 L 29 Anion Gap 18 14 BUN 13 12 Creatinine 0.80 0.69 Estim Creat Clear Calc 122.7 142.3 Estimated GFR > 60 > 60 Random Glucose 86 80 Calcium 9.0 8.9 Phosphorus 3.7 Magnesium 2.0 Total Bilirubin 1.0 1.0 AST 53 H 44 H ALT 36 37 Alkaline Phosphatase 76 74 Total Creatine Kinase 426 H 350 H Troponin I High Sens < 2.7 Total Protein 7.0 6.3 L Albumin 3.8 4.0 Urine Color Dark Yellow Urine Appearance Clear Urine pH 6.0 Ur Specific [place] >= 1.030 H Urine Protein 30 (1+) H Urine Glucose (UA) Negative Urine Ketones 15 Urine Blood Negative Urine Nitrite Negative Ur Leukocyte Esterase Negative Urine RBC 0-2 Urine WBC 0-5 Ur Squamous Epith Cells 0-2 Urine Bacteria None Seen Hyaline Casts 3-5 Salicylates < 5.0 L Urine Opiates Screen Not Detected Ur Buprenorphine Scrn Not Detected Ur Oxycodone Screen Not Detected Urine Methadone Screen Not Detected Urine Fentanyl Screen Not Detected Acetaminophen < 3 Ur Barbiturates Screen Not Detected Ur Phencyclidine Scrn Not Detected Ur Amphetamines Screen Not Detected U Benzodiazepines Scrn POSITIVE H Urine Cocaine Screen POSITIVE H U Marijuana (THC) Screen POSITIVE H Imaging Radiology Impressions: ITS Impressions Chest X-Ray 12/14/24 09:45 IMPRESSION: No acute airspace disease. Electronically signed by: Dariusz Franks MD 12/14/2024 11:02 AM EDT RP Meds/Allergies Allergies Allergies Allergy/AdvReac Type Severity Reaction Status Date / Time apple (APPLE) Allergy Unknown ANAPHYLAXIS Verified 12/12/24 22:02 pollen extracts (POLLEN) Allergy Unknown SNEEZING Verified 12/12/24 22:02 Mental Status Exam Mental Status Exam Narrative: Pt is alert and oriented; behavior is cooperative and calm; dressed in casual attire; mood is described as sad ; eye contact appropriate; Speech is normal rate, volume and not pressured; thought process is organized; Thought content is on tx; denies SI/HI/VH/AH. Assessment & Plan Assessment & Plan (1) Grieving: Status: Acute Code(s): F43.21 - Adjustment disorder with depressed mood (2) Benzodiazepine overdose: Status: Acute Code(s): T42.4X1A - Poisoning by benzodiazepines, accidental (unintentional), initial encounter Plan Patient is a 34-year-old male who was found by security unresponsive outside of [facility] due to overdosing on Klonopin secondary to his mother passing away yesterday. Plan: CV 15 minute safety checks CIWA protocol Consult to neurology; patient reports history of seizures. Obtain collateral Encourage groups Discharge planning Patient educated on: diagnosis and medication risk/benefits Reason for continued inpatient stay Substantial Risk for: med/psych decompensation Statement Statement: I have reviewed the history and physical and performed a pertinent examination on my patient. No changes have occurred unless specified. If the History and Physical was not performed prior to admission, the Hospitalist's service will be consulted for completing the admission physical. Time Spent With Patient Time: Total time managing care of this patient today _60___ minutes.
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
--- NOTE | 2024-12-14 17:46 | PC.NURSE ---
Neurology called 3x this evening regarding consult ordered for pt. with no answer, unable to leave a message. Will follow up in the morning.
[2024-12-14 19:32] VITALS: BP 113/62; PULSE 97; RESP 18; TEMP 35.9; O2SAT 99
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
[2024-12-15 07:00] VITALS: BMI 20.5
[2024-12-15 07:52] VITALS: BP 107/59; PULSE 82; RESP 20; TEMP 37; O2SAT 98
[2024-12-15] MEDS: Hydrocortisone 1 % Cream 28.35 GM TUBE 1 APPL TOPICAL ×3 (08:02→21:25)
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
[2024-12-15] MEDS: Nicotine 21 MG PATCH.TD24 TRANSDERMA (08:38)
[2024-12-15 09:23] LABS: Alanine Aminotransferase 61 U/L (0-40); Albumin Level 4.1 g/dL (3.5-5.0); Alkaline Phosphatase 76 U/L (39-117); Anion Gap 12 (12-20); Aspartate Amino Transferase 70 U/L (5-37); Blood Urea Nitrogen 11 mg/dL (9-16); Calcium 9.5 mg/dL (8.4-10.2); Carbon Dioxide 29 mmol/L (22-29); Chloride 106 mmol/L (96-108); Cholesterol 106 mg/dL (<200); Creatinine Clr Calc Pharmacy 92.7; Estimated Glomerular Filt Rate > 60; HDL Cholesterol 23 mg/dL (>40); Potassium 4.2 mmol/L (3.3-5.1); Sodium 143 mmol/L (135-145); Total Protein 6.8 g/dL (6.5-8.0); Triglycerides 130 mg/dL (<150)
[2024-12-15 09:34] LABS: Hemoglobin A1C 120.2153 umol/L; Total Hemoglobin (HGBA1C) 3919.2115 umol/L
--- NOTE | 2024-12-15 11:02 | HO.PSYCHPN ---
Subjective Subjective Date of Service: 12/15/24 Reason For Visit: SI Subjective Notes: Conditional Voluntary Interim History: Active on unit. social with peers. attending groups. Patient reports sleeping well. He denies any withdrawal symptoms. Patient reports he is surprised and shocked that I'm not having any withdrawal symptoms after taking that many klonopin . Continues on CIWA. denies SI/HI//VH/AH. Patient agreed to outpatient therapy referral, however continues to decline any psychiatric medications, reports he doesn't like taking meds . Continue current tx plan. Medication Compliance: Yes Side effects from medications: No Attending Groups: Yes Mental Status Exam Mental Status Exam Narrative: Pt is alert and oriented; behavior is cooperative and calm; dressed in casual attire; mood is described as sad ; eye contact appropriate; Speech is normal rate, volume and not pressured; thought process is organized; Thought content is on tx; denies SI/HI/VH/AH. Diagnostics Vital Signs (24Hr): Vital Signs - 24 hr 12/14/24 11:55 12/14/24 19:32 12/15/24 07:52 Temperature 98.6 F 96.6 F L 98.6 F Pulse Rate 86 97 82 Respiratory Rate 17 18 20 Blood Pressure 125/79 113/62 107/59 L Pulse Oximetry 99 99 98 Oxygen Delivery Method Room Air Room Air Room Air BMI result Body Mass Index 20.5 Labs 12/12/24 22:38 12/15/24 08:35 Labs: Laboratory Results - last 48 hr 12/15/24 08:35 Sodium 143 Potassium 4.2 D Chloride 106 Carbon Dioxide 29 Anion Gap 12 BUN 11 Creatinine 0.93 Estim Creat Clear Calc 92.7 Estimated GFR > 60 Random Glucose 122 H Estimat Average Glucose 97 Hemoglobin A1c % 5.0 Calcium 9.5 D Total Bilirubin 0.8 AST 70 H ALT 61 H Alkaline Phosphatase 76 Total Protein 6.8 Albumin 4.1 Triglycerides 130 Cholesterol 106 LDL Cholesterol, Calc 57 HDL Cholesterol 23 L Imaging Radiology Impressions: ITS Impressions Chest X-Ray 12/14/24 09:45 IMPRESSION: No acute airspace disease. Electronically signed by: Dariusz Franks MD 12/14/2024 11:02 AM EDT Medications Medications Current Medications Acetaminophen (Acetaminophen 325 Mg Tablet) 650 mg PO Q6H PRN PRN Reason: Headache/Pain, Scale 1-10 Al Hydroxide/Mg Hydroxide (Magnesium Hydrox/Alum Hydrox 30 Ml Oral.Susp) 30 ml PO Q6H PRN PRN Reason: Heartburn/Nausea Albuterol Sulfate (Albuterol Sulfate 90 Mcg 8 Gm Inhaler) 2 puff INHALE RQ6H PRN PRN Reason: Shortness of Breath/Wheezing Hydrocortisone (Hydrocortisone 1 % Cream 28.35 Gm Tube) 1 appl TOPICAL BID PRN PRN Reason: rash Last Admin: 12/15/24 08:02 Dose: 1 appl Hydroxyzine HCl (Hydroxyzine Hcl 25 Mg Tablet) 25 mg PO Q6H PRN PRN Reason: mild anxiety Last Admin: 12/14/24 23:32 Dose: 25 mg Lorazepam (Lorazepam 1 Mg Tablet) 1 mg PO Q2H PRN PRN Reason: CIWA 8-11 Lorazepam (Lorazepam 1 Mg Tablet) 2 mg PO Q2H PRN PRN Reason: CIWA 12-15 Lorazepam (Lorazepam 1 Mg Tablet) 3 mg PO Q2H PRN PRN Reason: CIWA > 15, and call Magnesium Hydroxide (Milk Of Magnesia 30 Ml Oral.Susp) 30 ml PO DAILY PRN PRN Reason: Constipation Nicotine (Nicotine 21 Mg Patch.Td24) 21 mg TRANSDERMA DAILY [facility] Last Admin: 12/15/24 08:38 Dose: 21 mg Nicotine Polacrilex (Nicotine Polacrilex 2 Mg Gum) 4 mg BUCCAL Q2H PRN PRN Reason: Nicotine Cravings Last Admin: 12/14/24 20:33 Dose: 4 mg Olanzapine (Olanzapine 5 Mg Tablet) 5 mg PO Q4H PRN PRN Reason: agitation Thiamine HCl (Thiamine Hcl 100 Mg Tablet) 100 mg PO DAILY [facility] Last Admin: 12/15/24 08:38 Dose: 100 mg Trazodone HCl (Trazodone Hcl 50 Mg Tablet) 50 mg PO BEDTIME MRX1 PRN PRN Reason: Insomnia Last Admin: 12/14/24 23:33 Dose: 50 mg Allergies Allergies Allergy/AdvReac Type Severity Reaction Status Date / Time apple (APPLE) Allergy Unknown ANAPHYLAXIS Verified 12/12/24 22:02 pollen extracts (POLLEN) Allergy Unknown SNEEZING Verified 12/12/24 22:02 Assessment & Plan Assessment & Plan (1) Grieving: Status: Acute Code(s): F43.21 - Adjustment disorder with depressed mood (2) Seizure disorder: Status: Acute Code(s): G40.909 - Epilepsy, unspecified, not intractable, without status epilepticus Assessment and Plan: 34 years old man who has been using marijuana and alcohol on regular basis, apparently had a psychological shock from his mother's passing couple of days ago, overdose himself on clonazepam, was found to have cocaine in addition to benzodiazepine and marijuana in his tox screen, reported having seizure started with dizziness and then blacking out. He has avoided any medical investigation or management stating that he did not have insurance. Other than somewhat flat affect, his examination is nonfocal. His head CT reveals periventricular hypodensities, which has a broad differential. My recommendation is to obtain an MRI of brain with and without contrast and an EEG for basic workup for his overall neurological situation. Test for HIV, syphilis, antinuclear antibody titer, and sed rate are recommended. (3) Benzodiazepine overdose: Status: Acute Code(s): T42.4X1A - Poisoning by benzodiazepines, accidental (unintentional), initial encounter Plan Patient is a 34-year-old male who was found by security unresponsive outside of [facility] [place] [facility] due to overdosing on Klonopin secondary to his mother passing away yesterday. Plan: CV 15 minute safety checks CIWA protocol Consult to neurology; patient reports history of seizures. Obtain collateral Encourage groups Discharge planning 12/15: Active on unit. social with peers. attending groups. Patient reports sleeping well. He denies any withdrawal symptoms. Patient reports he is surprised and shocked that I'm not having any withdrawal symptoms after taking that many klonopin . Continues on CIWA. denies SI/HI//VH/AH. Patient agreed to outpatient therapy referral, however continues to decline any psychiatric medications, reports he doesn't like taking meds . Continue current tx plan. Patient educated on: diagnosis and medication risk/benefits Reason for continued inpatient stay Substantial Risk for: med/psych decompensation Time Spent With Patient Time: Total time managing care of this patient today _20___ minutes.
[2024-12-15 12:51] LABS: HBS Num1 15.50 mIU/mL (0-7.99); HBc Num1 0.17 S/CO (0.00-0.79); HBsAGNum1 0.45 S/CO (0.00-0.99); HIV Num 1 0.06 S/CO (0.00-0.99); Hepatitis A Antibody IgM 0.19 Index (0-0.79); Hepatitis B Surface Antigen Negative (Negative); Syphilis Screen Nonreactive (Nonreactive); ~HepC Num1 0.37 S/CO (0.00-0.79); ~Hepatitis A Antibody IgM Nonreactive (Nonreactive); ~Hepatitis B Surface Antibody REACTIVE (Nonreactive); ~Hepatitis C Antibody Nonreactive (Nonreactive)
[2024-12-15 19:13] VITALS: BP 113/73; PULSE 82; RESP 16; TEMP 37; O2SAT 99
[2024-12-15] MEDS: Mineral Oil/Petrolatum,White 106 GM Tube 1 APPL TOPICAL (22:59)
[2024-12-16 07:47] VITALS: BP 83/46; PULSE 85; RESP 18; TEMP 37.5; O2SAT 96
[2024-12-16] MEDS: Nicotine 21 MG PATCH.TD24 TRANSDERMA (08:53)
--- NOTE | 2024-12-16 09:23 | P.PNPSI_ITS ---
Subjective Subjective Date of Service: 12/16/24 Reason For Visit: SI Subjective Notes: Conditional Voluntary Interim History: Active on unit. social with peers. attending groups. Patient reports feeling upset today because I miss my daughter and I found out my landlord threw out all of my things. I have no where to go . Patient continues to deny any withdrawal symptoms; not scoring on CIWA. denies SI/HI//VH/AH. EEG and MRI obtained per neurology recommendation d/t hx of seizures; please review for results. Awaiting lab results. Continue current tx plan. Medication Compliance: Yes Side effects from medications: No Attending Groups: Yes Mental Status Exam Mental Status Exam Narrative: Pt is alert and oriented; behavior is cooperative and calm; dressed in casual attire; mood is described as sad ; eye contact appropriate; Speech is normal rate, volume and not pressured; thought process is organized; Thought content is on tx; denies SI/HI/VH/AH. Diagnostics Vital Signs (24Hr): Vital Signs - 24 hr 12/15/24 19:13 12/16/24 07:47 Temperature 98.6 F 99.5 F Pulse Rate 82 85 Respiratory Rate 16 18 Blood Pressure 113/73 83/46 L Pulse Oximetry 99 96 Oxygen Delivery Method Room Air Room Air BMI result Body Mass Index 20.5 Labs 12/12/24 22:38 12/15/24 08:35 Labs: Laboratory Results - last 48 hr 12/15/24 12/15/24 08:35 12:07 ESR 4 Hold Purple Top SEE NOTE Sodium 143 Potassium 4.2 D Chloride 106 Carbon Dioxide 29 Anion Gap 12 BUN 11 Creatinine 0.93 Estim Creat Clear Calc 92.7 Estimated GFR > 60 Random Glucose 122 H Estimat Average Glucose 97 Hemoglobin A1c % 5.0 Calcium 9.5 D Total Bilirubin 0.8 AST 70 H ALT 61 H Alkaline Phosphatase 76 Total Protein 6.8 Albumin 4.1 Triglycerides 130 Cholesterol 106 LDL Cholesterol, Calc 57 HDL Cholesterol 23 L T.pallidum Ab (EIA) Nonreactive Hepatitis A IgM Ab Nonreactive Hep Bs Antigen Negative Hep Bs Antibody REACTIVE Hep B Core Total Ab Nonreactive Hepatitis C Ab (EIA) Nonreactive HIV 1&2 Ab/P24 Ag 4thGn Nonreactive Imaging Radiology Impressions: ITS Impressions Chest X-Ray 12/14/24 09:45 IMPRESSION: No acute airspace disease. Electronically signed by: Dariusz Franks MD 12/14/2024 11:02 AM EDT RP Medications Medications Current Medications Acetaminophen (Acetaminophen 325 Mg Tablet) 650 mg PO Q6H PRN PRN Reason: Headache/Pain, Scale 1-10 Al Hydroxide/Mg Hydroxide (Magnesium Hydrox/Alum Hydrox 30 Ml Oral.Susp) 30 ml PO Q6H PRN PRN Reason: Heartburn/Nausea Albuterol Sulfate (Albuterol Sulfate 90 Mcg 8 Gm Inhaler) 2 puff INHALE RQ6H PRN PRN Reason: Shortness of Breath/Wheezing Hydrocortisone (Hydrocortisone 1 % Cream 28.35 Gm Tube) 1 appl TOPICAL BID PRN PRN Reason: rash Last Admin: 12/15/24 21:25 Dose: 1 appl Hydroxyzine HCl (Hydroxyzine Hcl 25 Mg Tablet) 25 mg PO Q6H PRN PRN Reason: mild anxiety Last Admin: 12/15/24 19:14 Dose: 25 mg Lorazepam (Lorazepam 1 Mg Tablet) 1 mg PO Q2H PRN PRN Reason: CIWA 8-11 Lorazepam (Lorazepam 1 Mg Tablet) 2 mg PO Q2H PRN PRN Reason: CIWA 12-15 Lorazepam (Lorazepam 1 Mg Tablet) 3 mg PO Q2H PRN PRN Reason: CIWA > 15, and call Magnesium Hydroxide (Milk Of Magnesia 30 Ml Oral.Susp) 30 ml PO DAILY PRN PRN Reason: Constipation Multi-Ingred Cream/Lotion/Oil/Oint (Mineral Oil/Petrolatum,White 106 Gm Tube) 1 appl TOPICAL QID PRN; Protocol PRN Reason: continued itchiness Last Admin: 12/15/24 22:59 Dose: 1 appl Nicotine (Nicotine 21 Mg Patch.Td24) 21 mg TRANSDERMA DAILY [facility] Last Admin: 12/16/24 08:53 Dose: 21 mg Nicotine Polacrilex (Nicotine Polacrilex 2 Mg Gum) 4 mg BUCCAL Q2H PRN PRN Reason: Nicotine Cravings Last Admin: 12/15/24 23:35 Dose: 4 mg Olanzapine (Olanzapine 5 Mg Tablet) 5 mg PO Q4H PRN PRN Reason: agitation Last Admin: 12/16/24 09:20 Dose: 5 mg Thiamine HCl (Thiamine Hcl 100 Mg Tablet) 100 mg PO DAILY [facility] Last Admin: 12/16/24 08:54 Dose: 100 mg Trazodone HCl (Trazodone Hcl 50 Mg Tablet) 50 mg PO BEDTIME MRX1 PRN PRN Reason: Insomnia Last Admin: 12/15/24 22:54 Dose: 50 mg Allergies Allergies Allergy/AdvReac Type Severity Reaction Status Date / Time apple (APPLE) Allergy Unknown ANAPHYLAXIS Verified 12/12/24 22:02 pollen extracts (POLLEN) Allergy Unknown SNEEZING Verified 12/12/24 22:02 Assessment & Plan Assessment & Plan (1) Grieving: Status: Acute Code(s): F43.21 - Adjustment disorder with depressed mood (2) Seizure disorder: Status: Acute Code(s): G40.909 - Epilepsy, unspecified, not intractable, without status epilepticus Assessment and Plan: 34 years old man who has been using marijuana and alcohol on regular basis, apparently had a psychological shock from his mother's passing couple of days ago, overdose himself on clonazepam, was found to have cocaine in addition to benzodiazepine and marijuana in his tox screen, reported having seizure started with dizziness and then blacking out. He has avoided any medical investigation or management stating that he did not have insurance. Other than somewhat flat affect, his examination is nonfocal. His head CT reveals periventricular hypodensities, which has a broad differential. My recommendation is to obtain an MRI of brain with and without contrast and an EEG for basic workup for his overall neurological situation. Test for HIV, syphilis, antinuclear antibody titer, and sed rate are recommended. (3) Benzodiazepine overdose: Status: Acute Code(s): T42.4X1A - Poisoning by benzodiazepines, accidental (unintentional), initial encounter Plan Patient is a 34-year-old male who was found by security unresponsive outside of [facility] due to overdosing on Klonopin secondary to his mother passing away yesterday. Plan: CV 15 minute safety checks [facility] protocol Consult to neurology; patient reports history of seizures. Obtain collateral Encourage groups Discharge planning 12/15: Active on unit. social with peers. attending groups. Patient reports sleeping well. He denies any withdrawal symptoms. Patient reports he is surprised and shocked that I'm not having any withdrawal symptoms after taking that many klonopin . Continues on CIWA. denies SI/HI//VH/AH. Patient agreed to outpatient therapy referral, however continues to decline any psychiatric medications, reports he doesn't like taking meds . Continue current tx plan. 12/16: Patient reports feeling upset today because I miss my daughter and I found out my landlord threw out all of my things. I have no where to go . Patient continues to deny any withdrawal symptoms; not scoring on CIWA. denies SI/HI//VH/AH. EEG and MRI obtained per neurology recommendation d/t hx of seizures; please review for results. Awaiting lab results. Continue current tx plan. Patient educated on: diagnosis, medication risk/benefits and therapeutic strategies Reason for continued inpatient stay Substantial Risk for: med/psych decompensation Time Spent With Patient Time: Total time managing care of this patient today _20___ minutes.
[2024-12-16] MEDS: Hydrocortisone 1 % Cream 28.35 GM TUBE 1 APPL TOPICAL (16:45)
[2024-12-16 20:00] VITALS: BP 117/71; PULSE 79; RESP 16; TEMP 36.8; O2SAT 99
[2024-12-17 07:25] VITALS: BP 93/53; PULSE 75; RESP 20; TEMP 36.4; O2SAT 97
--- NOTE | 2024-12-17 07:53 | P.PNPSI_ITS ---
Subjective Subjective Date of Service: 12/17/24 Reason For Visit: SI Subjective Notes: Conditional Voluntary Interim History: Patient has been in the milieu and intermittently attending groups. Does present with some paranoia stating that somebody is working using his name and false identity. He did call the police who came to the unit. That being said feels safe on the unit. Sleep okay. Asking for more psoriasis cream. Is anxious. No SI. Denied hallucinations. Noted Neurology input. Noted MRI result and concern for MS and will have neurology discuss results and full workup for/next steps after the weekend. Did not discuss results with patient and informed writer editor preferred neurology discuss same and details with him. Medication Compliance: Yes Side effects from medications: No Attending Groups: Intermittent Review of Systems Noted Neurology input. Noted MRI result and concern for MS and will have neurology discuss results and full workup for/next steps after the weekend. Did not discuss results with patient and informed writer editor preferred neurology discuss same and details with him. Review of Systems Review of Systems Nothing acute Mental Status Exam Mental Status Exam Narrative: Pt is alert and oriented; behavior is cooperative and calm; dressed in casual attire; mood is described as not great ; eye contact appropriate; Speech is normal rate, volume and not pressured; thought process is organized; Thought content is on tx; denies SI/HI/VH/AH. Diagnostics Vital Signs (24Hr): Vital Signs - 24 hr 12/16/24 20:00 Temperature 98.3 F Pulse Rate 79 Respiratory Rate 16 Blood Pressure 117/71 Pulse Oximetry 99 Oxygen Delivery Method Room Air BMI result Body Mass Index 20.5 Labs 12/12/24 22:38 12/15/24 08:35 Labs: Laboratory Results - last 48 hr 12/15/24 12/15/24 08:35 12:07 ESR 4 Hold Purple Top SEE NOTE Sodium 143 Potassium 4.2 D Chloride 106 Carbon Dioxide 29 Anion Gap 12 BUN 11 Creatinine 0.93 Estim Creat Clear Calc 92.7 Estimated GFR > 60 Random Glucose 122 H Estimat Average Glucose 97 Hemoglobin A1c % 5.0 Calcium 9.5 D Total Bilirubin 0.8 AST 70 H ALT 61 H Alkaline Phosphatase 76 Total Protein 6.8 Albumin 4.1 Triglycerides 130 Cholesterol 106 LDL Cholesterol, Calc 57 HDL Cholesterol 23 L T.pallidum Ab (EIA) Nonreactive Hepatitis A IgM Ab Nonreactive Hep Bs Antigen Negative Hep Bs Antibody REACTIVE Hep B Core Total Ab Nonreactive Hepatitis C Ab (EIA) Nonreactive HIV 1&2 Ab/P24 Ag 4thGn Nonreactive Imaging Radiology Impressions: ITS Impressions Chest X-Ray 12/14/24 09:45 IMPRESSION: No acute airspace disease. Electronically signed by: Dariusz Franks MD 12/14/2024 11:02 AM EDT RP Medications Medications Current Medications Acetaminophen (Acetaminophen 325 Mg Tablet) 650 mg PO Q6H PRN PRN Reason: Headache/Pain, Scale 1-10 Al Hydroxide/Mg Hydroxide (Magnesium Hydrox/Alum Hydrox 30 Ml Oral.Susp) 30 ml PO Q6H PRN PRN Reason: Heartburn/Nausea Albuterol Sulfate (Albuterol Sulfate 90 Mcg 8 Gm Inhaler) 2 puff INHALE RQ6H PRN PRN Reason: Shortness of Breath/Wheezing Hydrocortisone (Hydrocortisone 1 % Cream 28.35 Gm Tube) 1 appl TOPICAL BID PRN PRN Reason: rash Last Admin: 12/16/24 16:45 Dose: 1 appl Hydroxyzine HCl (Hydroxyzine Hcl 25 Mg Tablet) 25 mg PO Q6H PRN PRN Reason: mild anxiety Last Admin: 12/16/24 20:29 Dose: 25 mg Lorazepam (Lorazepam 1 Mg Tablet) 1 mg PO Q2H PRN PRN Reason: CIWA 8-11 Lorazepam (Lorazepam 1 Mg Tablet) 2 mg PO Q2H PRN PRN Reason: CIWA 12-15 Lorazepam (Lorazepam 1 Mg Tablet) 3 mg PO Q2H PRN PRN Reason: CIWA > 15, and call Magnesium Hydroxide (Milk Of Magnesia 30 Ml Oral.Susp) 30 ml PO DAILY PRN PRN Reason: Constipation Multi-Ingred Cream/Lotion/Oil/Oint (Mineral Oil/Petrolatum,White 106 Gm Tube) 1 appl TOPICAL QID PRN; Protocol PRN Reason: continued itchiness Last Admin: 12/15/24 22:59 Dose: 1 appl Nicotine (Nicotine 21 Mg Patch.Td24) 21 mg TRANSDERMA DAILY [facility] Last Admin: 12/16/24 08:53 Dose: 21 mg Nicotine Polacrilex (Nicotine Polacrilex 2 Mg Gum) 4 mg BUCCAL Q2H PRN PRN Reason: Nicotine Cravings Last Admin: 12/16/24 21:01 Dose: 4 mg Olanzapine (Olanzapine 5 Mg Tablet) 5 mg PO Q4H PRN PRN Reason: agitation Last Admin: 12/16/24 16:49 Dose: 5 mg Pseudoephedrine HCl (Pseudoephedrine Hcl 30 Mg Tablet) 30 mg PO Q6H PRN PRN Reason: congestion Sodium Chloride (Sodium Chloride 0.65 % Nasal 44 Ml Sprbtl) 1 spray NOSTRIL-B Q4H PRN PRN Reason: Congestion Thiamine HCl (Thiamine Hcl 100 Mg Tablet) 100 mg PO DAILY [facility] Last Admin: 12/16/24 08:54 Dose: 100 mg Trazodone HCl (Trazodone Hcl 50 Mg Tablet) 50 mg PO BEDTIME MRX1 PRN PRN Reason: Insomnia Last Admin: 12/16/24 20:29 Dose: 50 mg Allergies Allergies Allergy/AdvReac Type Severity Reaction Status Date / Time apple (APPLE) Allergy Unknown ANAPHYLAXIS Verified 12/12/24 22:02 pollen extracts (POLLEN) Allergy Unknown SNEEZING Verified 12/12/24 22:02 Assessment & Plan Assessment & Plan (1) Grieving: Status: Acute Code(s): F43.21 - Adjustment disorder with depressed mood (2) Seizure disorder: Status: Acute Code(s): G40.909 - Epilepsy, unspecified, not intractable, without status epilepticus Assessment and Plan: 34 years old man who has been using marijuana and alcohol on regular basis, apparently had a psychological shock from his mother's passing couple of days ago, overdose himself on clonazepam, was found to have cocaine in addition to benzodiazepine and marijuana in his tox screen, reported having seizure started with dizziness and then blacking out. He has avoided any medical investigation or management stating that he did not have insurance. Other than somewhat flat affect, his examination is nonfocal. His head CT reveals periventricular hypodensities, which has a broad differential. My recommendation is to obtain an MRI of brain with and without contrast and an EEG for basic workup for his overall neurological situation. Test for HIV, syphilis, antinuclear antibody titer, and sed rate are recommended. (3) Benzodiazepine overdose: Status: Acute Code(s): T42.4X1A - Poisoning by benzodiazepines, accidental (unintentional), initial encounter Plan Patient is a 34-year-old male who was found by security unresponsive outside of [facility] due to overdosing on Klonopin secondary to his mother passing away yesterday. Plan: CV 15 minute safety checks CIWA protocol Consult to neurology; patient reports history of seizures. Obtain collateral Encourage groups Discharge planning 12/15: Active on unit. social with peers. attending groups. Patient reports sleeping well. He denies any withdrawal symptoms. Patient reports he is surprised and shocked that I'm not having any withdrawal symptoms after taking that many klonopin . Continues on CIWA. denies SI/HI//VH/AH. Patient agreed to outpatient therapy referral, however continues to decline any psychiatric medications, reports he doesn't like taking meds . Continue current tx plan. 12/16: Patient reports feeling upset today because I miss my daughter and I found out my landlord threw out all of my things. I have no where to go . Patient continues to deny any withdrawal symptoms; not scoring on CIWA. denies SI/HI//VH/AH. EEG and MRI obtained per neurology recommendation d/t hx of seizures; please review for results. Awaiting lab results. Continue current tx plan. 12/17/2024: Olanzapine and hydroxyzine as needed for anxiety. Noted Neurology input. Noted MRI result and concern for MS and will have neurology discuss results and full workup for/next steps after the weekend. Did not discuss results with patient and informed writer editor preferred neurology discuss same and details with him. Reason for continued inpatient stay Substantial Risk for: harm to self and inability to function Time Spent With Patient Time: Total time managing care of this patient today ____ minutes.
[2024-12-17] MEDS: Hydrocortisone 1 % Cream 28.35 GM TUBE 1 APPL TOPICAL (10:22)
[2024-12-17 12:10] VITALS: BP 118/75; PULSE 110; RESP 18; TEMP 37.2; O2SAT 98
[2024-12-17 16:26] VITALS: BP 123/74; PULSE 95; RESP 18; TEMP 36.6; O2SAT 97
[2024-12-17 20:00] VITALS: BP 122/75; PULSE 100; RESP 17; TEMP 37.1; O2SAT 97
[2024-12-17] MEDS: Mineral Oil/Petrolatum,White 106 GM Tube 1 APPL TOPICAL (20:57)
--- NOTE | 2024-12-18 01:27 | PC.NURSE ---
Pt was transferred from [facility] unit at about 1925. He was calm and cooperative, A&OX4. He states my roommate and I are close friends, we used to smoke and drinks alcohol together in clubs . Pt is intrusive with peers and staff, reports some anxiety and utilizing PRNs. He denies SI/HI/AH/VH, no behavior concerns noted or reported.
[2024-12-18 08:15] VITALS: BP 139/69; PULSE 114; RESP 17; TEMP 37.8; O2SAT 97
[2024-12-18] MEDS: Hydrocortisone 1 % Cream 28.35 GM TUBE 1 APPL TOPICAL ×3 (08:33→20:19)
--- NOTE | 2024-12-18 13:26 | HO.PSYCHPN ---
Subjective Subjective Date of Service: 12/18/24 Reason For Visit: SI Subjective Notes: Conditional Voluntary Healthcare Proxy: No Guardianship: No Medical Problems Affecting Mental Status: No Interim History: Transfer from . Denies SI,HI,AH,VH. Visable in milieu and getting to know peers. CIWA discontinued Medication Compliance: Yes Side effects from medications: No Review of Systems Medical Review of Systems: unchanged Review of Systems Review of Systems denies Mental Status Exam Mental Status Exam Patient Appearance: Appropriate Patient Orientation: Person, Place, Time and Situation Level of Consciousness: Alert Patient Behavior: Talkative Mood Description: Depressed Affect Description: Flat Patient Cognition Impaired: No Ability to Follow Directions: Good Speech Pattern: Spontaneous Speech Memory Description: Intact Hallucinations: None Delusions: Not Present Thought Process: Goal Oriented Thought Content: positive for Goal Oriented Judgement: Fair Diagnostics Vital Signs (24Hr): Vital Signs - 24 hr 12/17/24 16:26 12/17/24 20:00 12/18/24 08:15 Temperature 97.9 F 98.7 F 100.0 F Pulse Rate 95 100 114 H Respiratory Rate 18 17 17 Blood Pressure 123/74 122/75 139/69 Pulse Oximetry 97 97 97 Oxygen Delivery Method Room Air Room Air Room Air BMI result Body Mass Index 20.5 Labs 12/12/24 22:38 12/15/24 08:35 Imaging Radiology Impressions: ITS Impressions Chest X-Ray 12/14/24 09:45 IMPRESSION: No acute airspace disease. Electronically signed by: Dariusz Franks MD 12/14/2024 11:02 AM EDT Medications Medications Current Medications Acetaminophen (Acetaminophen 325 Mg Tablet) 650 mg PO Q6H PRN PRN Reason: Headache/Pain, Scale 1-10 Al Hydroxide/Mg Hydroxide (Magnesium Hydrox/Alum Hydrox 30 Ml Oral.Susp) 30 ml PO Q6H PRN PRN Reason: Heartburn/Nausea Albuterol Sulfate (Albuterol Sulfate 90 Mcg 8 Gm Inhaler) 2 puff INHALE RQ6H PRN PRN Reason: Shortness of Breath/Wheezing Hydrocortisone (Hydrocortisone 1 % Cream 28.35 Gm Tube) 1 appl TOPICAL QID GALE Last Admin: 12/18/24 08:33 Dose: 1 appl Hydroxyzine HCl (Hydroxyzine Hcl 50 Mg Tablet) 50 mg PO Q6H PRN PRN Reason: mild anxiety Last Admin: 12/17/24 19:12 Dose: 50 mg Ibuprofen (Ibuprofen 600 Mg Tablet) 600 mg PO Q6H PRN PRN Reason: Headache Last Admin: 12/18/24 12:42 Dose: 600 mg Magnesium Hydroxide (Milk Of Magnesia 30 Ml Oral.Susp) 30 ml PO DAILY PRN PRN Reason: Constipation Multi-Ingred Cream/Lotion/Oil/Oint (Mineral Oil/Petrolatum,White 106 Gm Tube) 1 appl TOPICAL QID PRN; Protocol PRN Reason: continued itchiness Last Admin: 12/17/24 20:57 Dose: 1 appl Nicotine (Nicotine 21 Mg Patch.Td24) 21 mg TRANSDERMA DAILY [facility] Last Admin: 12/18/24 08:33 Dose: Not Given Nicotine Polacrilex (Nicotine Polacrilex 2 Mg Gum) 4 mg BUCCAL Q2H PRN PRN Reason: Nicotine Cravings Last Admin: 12/18/24 12:42 Dose: 4 mg Olanzapine (Olanzapine 5 Mg Tablet) 5 mg PO Q4H PRN PRN Reason: agitation Last Admin: 12/18/24 08:34 Dose: 5 mg Pseudoephedrine HCl (Pseudoephedrine Hcl 30 Mg Tablet) 30 mg PO Q6H PRN PRN Reason: congestion Sodium Chloride (Sodium Chloride 0.65 % Nasal 44 Ml Sprbtl) 1 spray NOSTRIL-B Q4H PRN PRN Reason: Congestion Thiamine HCl (Thiamine Hcl 100 Mg Tablet) 100 mg PO DAILY [facility] Last Admin: 12/18/24 08:34 Dose: 100 mg Trazodone HCl (Trazodone Hcl 50 Mg Tablet) 50 mg PO BEDTIME MRX1 PRN PRN Reason: Insomnia Last Admin: 12/17/24 20:56 Dose: 50 mg Allergies Allergies Allergy/AdvReac Type Severity Reaction Status Date / Time apple (APPLE) Allergy Unknown ANAPHYLAXIS Verified 12/12/24 22:02 pollen extracts (POLLEN) Allergy Unknown SNEEZING Verified 12/12/24 22:02 Assessment & Plan Assessment & Plan (1) Grieving: Status: Acute Code(s): F43.21 - Adjustment disorder with depressed mood (2) Seizure disorder: Status: Acute Code(s): G40.909 - Epilepsy, unspecified, not intractable, without status epilepticus Assessment and Plan: 34 years old man who has been using marijuana and alcohol on regular basis, apparently had a psychological shock from his mother's passing couple of days ago, overdose himself on clonazepam, was found to have cocaine in addition to benzodiazepine and marijuana in his tox screen, reported having seizure started with dizziness and then blacking out. He has avoided any medical investigation or management stating that he did not have insurance. Other than somewhat flat affect, his examination is nonfocal. His head CT reveals periventricular hypodensities, which has a broad differential. My recommendation is to obtain an MRI of brain with and without contrast and an EEG for basic workup for his overall neurological situation. Test for HIV, syphilis, antinuclear antibody titer, and sed rate are recommended. (3) Benzodiazepine overdose: Status: Acute Code(s): T42.4X1A - Poisoning by benzodiazepines, accidental (unintentional), initial encounter Plan Patient is a 34-year-old male who was found by security unresponsive outside of [facility] due to overdosing on Klonopin secondary to his mother passing away yesterday. Plan: CV 15 minute safety checks CIWA protocol Consult to neurology; patient reports history of seizures. Obtain collateral Encourage groups Discharge planning 12/15: Active on unit. social with peers. attending groups. Patient reports sleeping well. He denies any withdrawal symptoms. Patient reports he is surprised and shocked that I'm not having any withdrawal symptoms after taking that many klonopin . Continues on CIWA. denies SI/HI//VH/AH. Patient agreed to outpatient therapy referral, however continues to decline any psychiatric medications, reports he doesn't like taking meds . Continue current tx plan. 12/16: Patient reports feeling upset today because I miss my daughter and I found out my landlord threw out all of my things. I have no where to go . Patient continues to deny any withdrawal symptoms; not scoring on CIWA. denies SI/HI//VH/AH. EEG and MRI obtained per neurology recommendation d/t hx of seizures; please review for results. Awaiting lab results. Continue current tx plan. 12/17/2024: Olanzapine and hydroxyzine as needed for anxiety. Noted Neurology input. Noted MRI result and concern for MS and will have neurology discuss results and full workup for/next steps after the weekend. Did not discuss results with patient and informed content writer preferred neurology discuss same and details with him. 12/18: Continue tx Reason for continued inpatient stay Substantial Risk for: rapid decompensation Time Spent With Patient Time: Total time managing care of this patient today ____ minutes.
[2024-12-18 19:51] VITALS: BP 128/65; PULSE 105; TEMP 37.2; O2SAT 95
--- NOTE | 2024-12-19 | ECG_ITS ---
Test Reason : CP Blood Pressure : */* mmHG Vent. Rate : 97 BPM Atrial Rate : 97 BPM P-R Int : 146 ms QRS Dur : 80 ms QT Int : 334 ms P-R-T Axes : 41 37 17 degrees QTcB Int : 424 ms Normal sinus rhythm Normal ECG When compared with ECG of 13-Dec-2024 00:04, No significant change was found Referred By: Radha Hernandez Electronically Signed By: CYNTHIA CLARK
[2024-12-19] MEDS: Mineral Oil/Petrolatum,White 106 GM Tube 1 APPL TOPICAL (05:18)
[2024-12-19 08:00] VITALS: BP 127/81; PULSE 104; RESP 18; TEMP 36.2; O2SAT 98
[2024-12-19] MEDS: Hydrocortisone 1 % Cream 28.35 GM TUBE 1 APPL TOPICAL ×4 (08:48→20:21)
--- NOTE | 2024-12-19 09:44 | P.PNPSI_ITS ---
Subjective Subjective Date of Service: 12/19/24 Reason For Visit: SI Interim History: met with patient; discussed with team; reviewed chart denies any SI at all or any intent; saying he took pills just to get high. Discussed symptoms and patient reports he usually does not struggle with depression or anxiety until lately but as it has become problematic he agrees to try medications. Reviewed risks/side effects and patient agrees with Starting on Zoloft for depression and anxiety (discussed pending neurology appointment to assess for seizure disorder and that Zoloft chosen since low risk for lowering seizure threshold); patient reports no seizure for 2 months Discussed substance abuse drinks excessively but only on the weekends; does not want MAT or substance abuse programs or treatment. Says he did cocaine just prior to admission but says it's seldom Mental Status Exam Mental Status Exam Narrative: Pt is alert and oriented; behavior is cooperative, friendly and calm; patient is not in distress; dressed in casual attire with unkempt hair but adequate hygiene; mood is described as anxious and affect congruent; eye contact appropriate; Speech is normal rate, volume and prosody and not pressured; no psychomotor agitation/retardation present; thought process is organized and goal directed; Thought content is on tx; otherwise pertinent to relevant topics and without any delusional content, paranoid ideations or grandiosity; denies any SI/HI. Denies AVH and there is no evidence of perceptual disturbance. Patients insight and judgment appear intact. Diagnostics Vital Signs (24Hr): Vital Signs - 24 hr 12/18/24 19:51 12/19/24 08:00 Temperature 98.9 F 97.2 F Pulse Rate 105 H 104 H Respiratory Rate 18 Blood Pressure 128/65 127/81 Pulse Oximetry 95 98 Oxygen Delivery Method Room Air Room Air BMI result Body Mass Index 20.5 Labs 12/12/24 22:38 12/15/24 08:35 Imaging Radiology Impressions: ITS Impressions Chest X-Ray 12/14/24 09:45 IMPRESSION: No acute airspace disease. Electronically signed by: Dariusz Franks MD 12/14/2024 11:02 AM EDT Medications Medications Current Medications Acetaminophen (Acetaminophen 325 Mg Tablet) 650 mg PO Q6H PRN PRN Reason: Headache/Pain, Scale 1-10 Al Hydroxide/Mg Hydroxide (Magnesium Hydrox/Alum Hydrox 30 Ml Oral.Susp) 30 ml PO Q6H PRN PRN Reason: Heartburn/Nausea Albuterol Sulfate (Albuterol Sulfate 90 Mcg 8 Gm Inhaler) 2 puff INHALE RQ6H PRN PRN Reason: Shortness of Breath/Wheezing Hydrocortisone (Hydrocortisone 1 % Cream 28.35 Gm Tube) 1 appl TOPICAL QID GALE Last Admin: 12/19/24 08:48 Dose: 1 appl Hydroxyzine HCl (Hydroxyzine Hcl 50 Mg Tablet) 50 mg PO Q6H PRN PRN Reason: mild anxiety Last Admin: 12/19/24 08:47 Dose: 50 mg Ibuprofen (Ibuprofen 600 Mg Tablet) 600 mg PO Q6H PRN PRN Reason: Headache Last Admin: 12/18/24 12:42 Dose: 600 mg Magnesium Hydroxide (Milk Of Magnesia 30 Ml Oral.Susp) 30 ml PO DAILY PRN PRN Reason: Constipation Multi-Ingred Cream/Lotion/Oil/Oint (Mineral Oil/Petrolatum,White 106 Gm Tube) 1 appl TOPICAL QID PRN; Protocol PRN Reason: continued itchiness Last Admin: 12/19/24 05:18 Dose: 1 appl Nicotine (Nicotine 21 Mg Patch.Td24) 21 mg TRANSDERMA DAILY [facility] Last Admin: 12/19/24 08:36 Dose: Not Given Nicotine Polacrilex (Nicotine Polacrilex 2 Mg Gum) 4 mg BUCCAL Q2H PRN PRN Reason: Nicotine Cravings Last Admin: 12/19/24 09:07 Dose: 4 mg Olanzapine (Olanzapine 5 Mg Tablet) 5 mg PO Q4H PRN PRN Reason: agitation Last Admin: 12/19/24 06:59 Dose: 5 mg Pseudoephedrine HCl (Pseudoephedrine Hcl 30 Mg Tablet) 30 mg PO Q6H PRN PRN Reason: congestion Sodium Chloride (Sodium Chloride 0.65 % Nasal 44 Ml Sprbtl) 1 spray NOSTRIL-B Q4H PRN PRN Reason: Congestion Thiamine HCl (Thiamine Hcl 100 Mg Tablet) 100 mg PO DAILY [facility] Last Admin: 12/19/24 08:36 Dose: 100 mg Trazodone HCl (Trazodone Hcl 50 Mg Tablet) 50 mg PO BEDTIME MRX1 PRN PRN Reason: Insomnia Last Admin: 12/18/24 20:20 Dose: 50 mg Allergies Allergies Allergy/AdvReac Type Severity Reaction Status Date / Time apple (APPLE) Allergy Unknown ANAPHYLAXIS Verified 12/12/24 22:02 pollen extracts (POLLEN) Allergy Unknown SNEEZING Verified 12/12/24 22:02 Assessment & Plan Assessment & Plan (1) Grieving: Status: Acute Code(s): F43.21 - Adjustment disorder with depressed mood (2) Seizure disorder: Status: Acute Code(s): G40.909 - Epilepsy, unspecified, not intractable, without status epilepticus Assessment and Plan: 34 years old man who has been using marijuana and alcohol on regular basis, apparently had a psychological shock from his mother's passing couple of days ago, overdose himself on clonazepam, was found to have cocaine in addition to benzodiazepine and marijuana in his tox screen, reported having seizure started with dizziness and then blacking out. He has avoided any medical investigation or management stating that he did not have insurance. Other than somewhat flat affect, his examination is nonfocal. His head CT reveals periventricular hypodensities, which has a broad differential. My recommendation is to obtain an MRI of brain with and without contrast and an EEG for basic workup for his overall neurological situation. Test for HIV, syphilis, antinuclear antibody titer, and sed rate are recommended. (3) Benzodiazepine overdose: Status: Acute Code(s): T42.4X1A - Poisoning by benzodiazepines, accidental (unintentional), initial encounter Plan Patient is a 34-year-old male who was found by security unresponsive outside of [facility] due to overdosing on Klonopin secondary to his mother passing away yesterday. Hospital course: 12/15: Active on unit. social with peers. attending groups. Patient reports sleeping well. He denies any withdrawal symptoms. Patient reports he is surprised and shocked that I'm not having any withdrawal symptoms after taking that many klonopin . Continues on CIWA. denies SI/HI//VH/AH. Patient agreed to outpatient therapy referral, however continues to decline any psychiatric medications, reports he doesn't like taking meds . Continue current tx plan. 12/16: Patient reports feeling upset today because I miss my daughter and I found out my landlord threw out all of my things. I have no where to go . Patient continues to deny any withdrawal symptoms; not scoring on CIWA. denies SI/HI//VH/AH. EEG and MRI obtained per neurology recommendation d/t hx of seizures; please review for results. Awaiting lab results. Continue current tx plan. 12/17/2024: Olanzapine and hydroxyzine as needed for anxiety. Noted Neurology input. Noted MRI result and concern for MS and will have neurology discuss results and full workup for/next steps after the weekend. Did not discuss results with patient and informed sheet writer preferred neurology discuss same and details with him. 12/18: Continue tx 12/19 denies any SI at all or any intent; saying he took pills just to get high. Discussed symptoms and patient reports he usually does not struggle with depression or anxiety until lately but as it has become problematic he agrees to try medications. Reviewed risks/side effects and patient agrees with Starting on Zoloft for depression and anxiety (discussed pending neurology appointment to assess for seizure disorder and that Zoloft chosen since low risk for lowering seizure threshold); patient reports no seizure for 2 months -Discussed substance abuse drinks excessively but only on the weekends; does not want MAT or substance abuse programs or treatment. Says he did cocaine just prior to admission but says it's seldom -Added Triamcinolone for continued psoriasis symptoms not treated by hydrocortisone Plan: CV 15 minute safety checks CIWA protocol Consult to neurology; patient reports history of seizures. Obtain collateral Encourage groups Discharge planning Patient educated on: diagnosis, medication risk/benefits, substance abuse and medical condition Informed Consent: understands Reason for continued inpatient stay Substantial Risk for: stable for discharge Time Spent With Patient Time: Total time managing care of this patient today ____ minutes.
[2024-12-19 11:08] LABS: Anti Nuclear Antibody Screen NEGATIVE (NEGATIVE)
[2024-12-19 20:00] VITALS: BP 131/68; PULSE 74; RESP 18; TEMP 36.6; O2SAT 98
[2024-12-20 08:00] VITALS: BP 106/64; PULSE 114; RESP 18; TEMP 37.3; O2SAT 95
[2024-12-20] MEDS: Triamcinolone Acet 0.1 % Oint 15 GM TUBE 1 APPL TOPICAL ×2 (08:09→13:43)
--- NOTE | 2024-12-20 09:47 | P.PNPSI_ITS ---
Subjective Subjective Date of Service: 12/20/24 Reason For Visit: SI Interim History: met with patient; discussed with team Patient reports he continues to feel anxious but grateful for help received. Agrees with titration of Zoloft and though he knows he will discharge before it reaches a therapeutic dose will continue with and work with outpatient provider. Patient was unaware of options for PRNs to address anxiety and automatic typewriter inspector reviewed risks/side effects and patient agreed to try clonidine to see if it was helpful. Patient placed a 3 day notice, wanting to see his daughter. Mental Status Exam Mental Status Exam Narrative: Pt is alert and oriented; behavior is cooperative, friendly and calm; patient is not in distress; dressed in casual attire with unkempt hair but adequate hygiene; mood is described as anxious and affect congruent; eye contact appropriate; Speech is normal rate, volume and prosody and not pressured; no psychomotor agitation/retardation present; thought process is organized and goal directed; Thought content is on tx; otherwise pertinent to relevant topics and without any delusional content, paranoid ideations or grandiosity; denies any SI/HI. Denies AVH and there is no evidence of perceptual disturbance. Patients insight and judgment appear intact. Diagnostics Vital Signs (24Hr): Vital Signs - 24 hr 12/19/24 20:00 12/20/24 08:00 Temperature 97.8 F 99.2 F Pulse Rate 74 114 H Respiratory Rate 18 18 Blood Pressure 131/68 106/64 Pulse Oximetry 98 95 Oxygen Delivery Method Room Air Room Air BMI result Body Mass Index 20.5 Labs 12/12/24 22:38 12/15/24 08:35 Labs: Laboratory Results - last 48 hr 12/15/24 12:07 NICOLE Screen NEGATIVE NICOLE Titer TNP NICOLE Titer 2 TNP NICOLE Titer 3 TNP NICOLE Pattern TNP NICOLE Pattern 2 TNP NICOLE Pattern 3 TNP Imaging Radiology Impressions: ITS Impressions Chest X-Ray 12/14/24 09:45 IMPRESSION: No acute airspace disease. Electronically signed by: Dariusz Franks MD 12/14/2024 11:02 AM EDT Medications Medications Current Medications Acetaminophen (Acetaminophen 325 Mg Tablet) 650 mg PO Q6H PRN PRN Reason: Headache/Pain, Scale 1-10 Al Hydroxide/Mg Hydroxide (Magnesium Hydrox/Alum Hydrox 30 Ml Oral.Susp) 30 ml PO Q6H PRN PRN Reason: Heartburn/Nausea Albuterol Sulfate (Albuterol Sulfate 90 Mcg 8 Gm Inhaler) 2 puff INHALE RQ6H PRN PRN Reason: Shortness of Breath/Wheezing Hydrocortisone (Hydrocortisone 1 % Cream 28.35 Gm Tube) 1 appl TOPICAL QID GALE Last Admin: 12/20/24 08:13 Dose: Not Given Hydroxyzine HCl (Hydroxyzine Hcl 50 Mg Tablet) 50 mg PO Q6H PRN PRN Reason: mild anxiety Last Admin: 12/19/24 16:17 Dose: 50 mg Ibuprofen (Ibuprofen 600 Mg Tablet) 600 mg PO Q6H PRN PRN Reason: Headache Last Admin: 12/18/24 12:42 Dose: 600 mg Magnesium Hydroxide (Milk Of Magnesia 30 Ml Oral.Susp) 30 ml PO DAILY PRN PRN Reason: Constipation Multi-Ingred Cream/Lotion/Oil/Oint (Mineral Oil/Petrolatum,White 106 Gm Tube) 1 appl TOPICAL QID PRN; Protocol PRN Reason: continued itchiness Last Admin: 12/19/24 05:18 Dose: 1 appl Nicotine (Nicotine 21 Mg Patch.Td24) 21 mg TRANSDERMA DAILY [facility] Last Admin: 12/20/24 08:13 Dose: Not Given Nicotine Polacrilex (Nicotine Polacrilex 2 Mg Gum) 4 mg BUCCAL Q2H PRN PRN Reason: Nicotine Cravings Last Admin: 12/20/24 09:35 Dose: 4 mg Olanzapine (Olanzapine 5 Mg Tablet) 5 mg PO Q4H PRN PRN Reason: agitation Last Admin: 12/19/24 20:24 Dose: 5 mg Pseudoephedrine HCl (Pseudoephedrine Hcl 30 Mg Tablet) 30 mg PO Q6H PRN PRN Reason: congestion Sertraline HCl (Sertraline Hcl 25 Mg Tablet) 25 mg PO DAILY [facility] Last Admin: 12/20/24 08:11 Dose: 25 mg Sodium Chloride (Sodium Chloride 0.65 % Nasal 44 Ml Sprbtl) 1 spray NOSTRIL-B Q4H PRN PRN Reason: Congestion Thiamine HCl (Thiamine Hcl 100 Mg Tablet) 100 mg PO DAILY [facility] Last Admin: 12/20/24 08:12 Dose: 100 mg Trazodone HCl (Trazodone Hcl 50 Mg Tablet) 50 mg PO BEDTIME MRX1 PRN PRN Reason: Insomnia Last Admin: 12/19/24 21:33 Dose: 50 mg Triamcinolone Acetonide (Triamcinolone Acet 0.1 % Oint 15 Gm Tube) 1 appl TOPICAL BID PRN PRN Reason: psoriasis Last Admin: 12/20/24 08:09 Dose: 1 appl Allergies Allergies Allergy/AdvReac Type Severity Reaction Status Date / Time apple (APPLE) Allergy Unknown ANAPHYLAXIS Verified 12/12/24 22:02 pollen extracts (POLLEN) Allergy Unknown SNEEZING Verified 12/12/24 22:02 Assessment & Plan Assessment & Plan (1) Grieving: Status: Acute Code(s): F43.21 - Adjustment disorder with depressed mood (2) Seizure disorder: Status: Acute Code(s): G40.909 - Epilepsy, unspecified, not intractable, without status epilepticus Assessment and Plan: 34 years old man who has been using marijuana and alcohol on regular basis, apparently had a psychological shock from his mother's passing couple of days ago, overdose himself on clonazepam, was found to have cocaine in addition to benzodiazepine and marijuana in his tox screen, reported having seizure started with dizziness and then blacking out. He has avoided any medical investigation or management stating that he did not have insurance. Other than somewhat flat affect, his examination is nonfocal. His head CT reveals periventricular hypodensities, which has a broad differential. My recommendation is to obtain an MRI of brain with and without contrast and an EEG for basic workup for his overall neurological situation. Test for HIV, syphilis, antinuclear antibody titer, and sed rate are recommended. (3) Benzodiazepine overdose: Status: Acute Code(s): T42.4X1A - Poisoning by benzodiazepines, accidental (unintentional), initial encounter Plan Patient is a 34-year-old male who was found by security unresponsive outside [place] [facility] due to overdosing on Klonopin secondary to his mother passing away yesterday. Hospital course: 12/15: Active on unit. social with peers. attending groups. Patient reports sleeping well. He denies any withdrawal symptoms. Patient reports he is surprised and shocked that I'm not having any withdrawal symptoms after taking that many klonopin . Continues on CIWA. denies SI/HI//VH/AH. Patient agreed to outpatient therapy referral, however continues to decline any psychiatric medications, reports he doesn't like taking meds . Continue current tx plan. 12/16: Patient reports feeling upset today because I miss my daughter and I found out my landlord threw out all of my things. I have no where to go . Patient continues to deny any withdrawal symptoms; not scoring on CIWA. denies SI/HI//VH/AH. EEG and MRI obtained per neurology recommendation d/t hx of seizures; please review for results. Awaiting lab results. Continue current tx plan. 12/17/2024: Olanzapine and hydroxyzine as needed for anxiety. Noted Neurology input. Noted MRI result and concern for MS and will have neurology discuss results and full workup for/next steps after the weekend. Did not discuss results with patient and informed automatic typewriter inspector preferred neurology discuss same and details with him. 12/18: Continue tx 12/19 denies any SI at all or any intent; saying he took pills just to get high. Discussed symptoms and patient reports he usually does not struggle with depression or anxiety until lately but as it has become problematic he agrees to try medications. Reviewed risks/side effects and patient agrees with Starting on Zoloft for depression and anxiety (discussed pending neurology appointment to assess for seizure disorder and that Zoloft chosen since low risk for lowering seizure threshold); patient reports no seizure for 2 months -Discussed substance abuse drinks excessively but only on the weekends; does not want MAT or substance abuse programs or treatment. Says he did cocaine just prior to admission but says it's seldom -Added Triamcinolone for continued psoriasis symptoms not treated by hydrocortisone 12/20 Patient reports he continues to feel anxious but grateful for help received. Agrees with titration of Zoloft and though he knows he will discharge before it reaches a therapeutic dose will continue with and work with outpatient provider. Patient was unaware of options for PRNs to address anxiety and automatic typewriter inspector reviewed risks/side effects and patient agreed to try clonidine to see if it was helpful. Patient placed a 3 day notice, wanting to see his daughter. Plan: CV 15 minute safety checks CIWA protocol Consult to neurology; patient reports history of seizures. Obtain collateral Encourage groups Discharge plannin Patient educated on: diagnosis and medication risk/benefits Informed Consent: understands Reason for continued inpatient stay Substantial Risk for: stable for discharge Time Spent With Patient Time: Total time managing care of this patient today ____ minutes.
[2024-12-20 12:33] VITALS: BP 116/70
[2024-12-20] MEDS: Hydrocortisone 1 % Cream 28.35 GM TUBE 1 APPL TOPICAL (13:41)
[2024-12-20 17:47] VITALS: BP 127/90
[2024-12-20 20:00] VITALS: BP 110/68; PULSE 88; RESP 18; TEMP 36.9; O2SAT 98
[2024-12-20] MEDS: Mineral Oil/Petrolatum,White 106 GM Tube 1 APPL TOPICAL (21:29)
[2024-12-21 07:30] VITALS: BP 108/63; PULSE 104; TEMP 36.6; O2SAT 98
[2024-12-21 08:00] VITALS: BP 137/90; PULSE 97; O2SAT 100
[2024-12-21 08:29] LABS: Glucose, Whole Blood 113 mg/dL (60-115)
--- NOTE | 2024-12-21 11:22 | PM.PSYDC ---
DS: Providers Provider Date of Service: 12/21/24 Date of admission: 12/14/24 10:29 Date of discharge: 12/21/24 Primary care physician: None Physician Admitting clinician: Karen Snow Consults: 12/14/24 16:31 Consult to Neurology Routine Consulting Provider: [facility] Reason for consultation: hx of seizures;not on any medications Has provider been notified: No 12/17/24 11:09 Consult to Neurology Routine Consulting Provider: [facility] Reason for consultation: Follow up imaging results with patient and primary team Thursday Has provider been notified: No Attending physician on discharge: Artur Romero DS: Diagnosis Discharge Diagnosis (1) Grieving: Status: Acute (2) Seizure disorder: Status: Acute (3) Benzodiazepine overdose: Status: Acute DS: Medications Discharge Medications Home Medications: Home Medications ?Medication ?Instructions ?Recorded ?Confirmed albuterol sulfate 90 mcg/actuation inhalation 12/14/24 aerosol inhaler Previous Rx's ?Medication ?Instructions ?Recorded cephalexin 250 mg capsule 250 mg PO Q6H #28 caps 01/30/20 hydrocortisone 2.5 % topical cream 1 applic topical BID PRN rash #30 01/30/20 grams hydroxyzine HCl 25 mg tablet 25 mg PO TID PRN itching #10 tabs 09/13/20 Mental Status Exam Mental Status Exam Narrative: transferred due to seizure Data Data Completed and Pending Completed studies during hospitalization [Text1]: 12/15/24 12/15/24 12/21/24 08:35 12:07 07:57 ESR 4 Hold Purple Top SEE NOTE Sodium 143 Potassium 4.2 D Chloride 106 Carbon Dioxide 29 Anion Gap 12 BUN 11 Creatinine 0.93 Estim Creat Clear Calc 92.7 Estimated GFR > 60 POC Glucose 113 Random Glucose 122 H Estimat Average Glucose 97 Hemoglobin A1c % 5.0 Calcium 9.5 D Total Bilirubin 0.8 AST 70 H ALT 61 H Alkaline Phosphatase 76 Total Protein 6.8 Albumin 4.1 Triglycerides 130 Cholesterol 106 LDL Cholesterol, Calc 57 HDL Cholesterol 23 L NICOLE Screen NEGATIVE NICOLE Titer TNP NICOLE Titer 2 TNP NICOLE Titer 3 TNP NICOLE Pattern TNP NICOLE Pattern 2 TNP NICOLE Pattern 3 TNP T.pallidum Ab (EIA) Nonreactive Hepatitis A IgM Ab Nonreactive Hep Bs Antigen Negative Hep Bs Antibody REACTIVE Hep B Core Total Ab Nonreactive Hepatitis C Ab (EIA) Nonreactive HIV 1&2 Ab/P24 Ag 4thGn Nonreactive Imaging Diagnostic Imaging Impressions Chest X-Ray 12/14/24 09:45 IMPRESSION: No acute airspace disease. Electronically signed by: Dariusz Franks MD 12/14/2024 11:02 AM EDT DS: Summary Hospital Course Hospital Course: HPI:Patient is a 34-year-old male who was found by security unresponsive outside of [facility] due to overdosing on Klonopin secondary to his mother passing away yesterday. Per crisis report, patient reported he overdosed on 280 1mg Klonopin secondary to his mother passing away yesterday. Patient reports he is not prescribed the medication and bought it off the street. Patient denied SI/HI/VH/AH. Patient denies any prior crisis assessments or suicide attempts. Denies history of inpatient psychiatric hospitalizations. He reports not having an outpatient therapist or prescriber in years . Patient presented tearful, he denies he took the medications in a suicide attempt and reported the weed was not working . He was upset his mother suddenly yesterday. Patient presents depressed and hopeless. During admission assessment, patient presents alert and oriented x3. Calm and cooperative. This is patient's 1st inpatient psychiatric hospitalization. Patient reports feeling sad ; patient stated, I just wanted to be knocked out. The weed was not doing anything. I didn't want to . I have my daughter who is my see. I'm never depressed. I'm just depressed because of my mom. I was not ready. She at 62 from Alzheimer's . Patient denies history of SA/SIB. He currently denies SI/HI/VH/AH. Patient reports he smokes marijuana daily and has 1-2 alcoholic drinks every other day. Denies history of inpatient psychiatric hospitalizations. Denies history of detox admissions. States he had a psychiatrist when he was 14 years old but can not recall medications that were prescribed;states he has not had any psychiatric tx since the age of 14. Patient reports his sleep and appetite are good. Patient reports he is not interested in psychiatric medications nor, in a referral to an outpatient therapist. Patient reports he would like to talk to neurologist due to having a history of seizures reporting his last seizure was a month ago. Neuro consult recommended: MRI brain EEG Hospital course: 12/15: Active on unit. social with peers. attending groups. Patient reports sleeping well. He denies any withdrawal symptoms. Patient reports he is surprised and shocked that I'm not having any withdrawal symptoms after taking that many klonopin . Continues on CIWA. denies SI/HI//VH/AH. Patient agreed to outpatient therapy referral, however continues to decline any psychiatric medications, reports he doesn't like taking meds . Continue current tx plan. 12/16: Patient reports feeling upset today because I miss my daughter and I found out my landlord threw out all of my things. I have no where to go . Patient continues to deny any withdrawal symptoms; not scoring on CIWA. denies SI/HI//VH/AH. EEG and MRI obtained per neurology recommendation d/t hx of seizures; please review for results. Awaiting lab results. Continue current tx plan. 12/17/2024: Olanzapine and hydroxyzine as needed for anxiety. Noted Neurology input. Noted MRI result and concern for MS and will have neurology discuss results and full workup for/next steps after the weekend. Did not discuss results with patient and informed mortgage or loan underwriter preferred neurology discuss same and details with him. 12/19 denies any SI at all or any intent; saying he took pills just to get high. Discussed symptoms and patient reports he usually does not struggle with depression or anxiety until lately but as it has become problematic he agrees to try medications. Reviewed risks/side effects and patient agrees with Starting on Zoloft for depression and anxiety (discussed pending neurology appointment to assess for seizure disorder and that Zoloft chosen since low risk for lowering seizure threshold); patient reports no seizure for 2 months -Discussed substance abuse drinks excessively but only on the weekends; does not want MAT or substance abuse programs or treatment. Says he did cocaine just prior to admission but says it's seldom -Added Triamcinolone for continued psoriasis symptoms not treated by hydrocortisone 12/20 Patient reports he continues to feel anxious but grateful for help received. Agrees with titration of Zoloft and though he knows he will discharge before it reaches a therapeutic dose will continue with and work with outpatient provider. Patient was unaware of options for PRNs to address anxiety and mortgage or loan underwriter reviewed risks/side effects and patient agreed to try clonidine to see if it was helpful. Patient placed a 3 day notice, wanting to see his daughter. Pt stable and at baseline. He is not in imminent risk for harm to self or others and appropriate to return to the community for treatment. On 12/21, patient had a witnessed seizure and was transferred to the medical floor (Seizure occured prior to getting Zoloft) Status at Discharge Functional status at discharge: bed bound Overall status at discharge: patient is back to baseline (psychiatrically pt had returned to baseline) Time Spent with Patient Time attestation: Total time managing care of this patient today ____ minutes. Time spent: Less than 30 minutes Discharge Plan Discharge Anticipated Discharge Date/Time: 12/21/24 08:30 Patient Disposition: Xfer Other Discharge Diagnosis: MDD, moderate Referrals: Physician,None [Primary Care Provider, Medical] - 1 Week Discharge Medications: Continued hydroxyzine HCl 25 mg tablet 25 mg PO TID PRN (Reason: itching) Qty: 10 0RF hydrocortisone 2.5 % cream 1 applic topical BID PRN (Reason: rash) Qty: 30 0RF albuterol sulfate 90 mcg/actuation Hfa Aerosol Inhaler INHALATION Discontinued cephalexin 250 mg capsule 250 mg PO Q6H Qty: 28 0RF Discharge Orders: Discharge Order (Routine); Ordered 12/21/24 Ordered By: Srinath Salazar Diet: Regular diet Activity on Discharge: As tolerated Stand Alone Forms: Patient Portal Discharge page Print Language: Italian Care Plan Goals: transferred to medical floor Health Concerns: transferred to medical floor Plan of Treatment: transferred to medical floor Assessment: transferred to medical floor Discharge Date/Time: 12/21/24 08:05
--- NOTE | 2024-12-22 08:19 | PC.NURSE ---
LATE ENTRY for Thu12/21/24: At approx 0740, while Artur was in the shower, staff member heard a concerning noise. Door was opened emergently & pt was found on the ground with tonic-clonic movements. Eyes open but not responding. A Rapid Response was called immediately. Artur has a documented seizure history but on no rx'd seizure meds. Seizure activity lasted less than 5min. Patient was transported to [facility] for medical treatment & neuro eval. Vitals & glucose POC were checked & unremarkable.
== END 2024-12-21 08:05 | disposition other institution (70) | DRG 754 ==
LOC: HO.ED 12-13 21:42 → HO.PADLT16 12-14 11:13 → HO.PM5 12-17 19:17
PROVIDERS: Emergency Medicine; Admitting Provider Registered Nurse; Emergency Provider Emergency Medicine; Visit Provider Psychiatry & Neurology Psychiatry
DX: F43.21 Adjustment disorder with depressed mood (principal); G40.909 Epilepsy, unspecified, not intractable, without status epilepticus; F17.210 Nicotine dependence, cigarettes, uncomplicated; T42.4X1A Poisoning by benzodiazepines, accidental (unintentional), initial encounter; Z63.4 Disappearance and death of family member; Z71.6 Tobacco abuse counseling; Z79.899 Other long term (current) drug therapy
CPT/HCPCS: 36415; 70553; 71045; 80053; 80061; 80143; 80179; 80307; 81001; 82550; 82947; 83036; 83735; 84100; 84484; 85025; 85652; 86038; 86704; 86706; 86709; 86780; 86803; 87340; 87389; 93005; 95816; 99285; A9585; J2250; J2359; J7120; S9485

== ENCOUNTER → 2024-12-12 22:08 | Outpatient (BNV) | payer MEDICAID, SELFPAY | PROVIDERS: Emergency Provider Emergency Medicine; Visit Provider Internal Medicine Cardiovascular Disease | DX: T42.4X1A Poisoning by benzodiazepines, accidental (unintentional), initial encounter (principal) | CPT/HCPCS: 93010 ==

== ENCOUNTER → 2024-12-13 | Outpatient (BNV) | payer MEDICAID, SELFPAY | PROVIDERS: Emergency Provider Emergency Medicine; Visit Provider Internal Medicine Cardiovascular Disease | DX: T50.901A Poisoning by unspecified drugs, medicaments and biological substances, accidental (unintentional), initial encounter (principal) | CPT/HCPCS: 93010 ==

== ENCOUNTER → 2024-12-14 10:25 | Outpatient (BNV) | payer MEDICAID, SELFPAY | PROVIDERS: Admitting Provider Registered Nurse; Emergency Provider Emergency Medicine; Visit Provider Radiology Diagnostic Radiology | DX: R07.89 Other chest pain (principal) | CPT/HCPCS: 71045 ==

== ENCOUNTER 2024-12-14 10:29 | Outpatient (BNV) | payer MEDICAID, SELFPAY | END 2024-12-19 10:03 | PROVIDERS: Admitting Provider Registered Nurse; Emergency Provider Emergency Medicine; Visit Provider Internal Medicine | DX: R07.9 Chest pain, unspecified (principal) | CPT/HCPCS: 93010 ==

== ENCOUNTER 2024-12-14 10:29 | Outpatient (BNV) | payer MEDICAID, SELFPAY | END 2024-12-15 17:19 | PROVIDERS: Admitting Provider Registered Nurse; Emergency Provider Emergency Medicine; Responsible Provider Registered Nurse; Visit Provider Radiology Neuroradiology | DX: G40.89 Other seizures (principal) | CPT/HCPCS: 70553 ==

== ENCOUNTER 2024-12-14 10:29 | Outpatient (BNV) | payer MEDICAID, SELFPAY | END 2024-12-15 13:00 | PROVIDERS: Admitting Provider Registered Nurse; Emergency Provider Emergency Medicine; Responsible Provider Registered Nurse; Visit Provider Psychiatry & Neurology Neurology | DX: R56.9 Unspecified convulsions (principal) | CPT/HCPCS: 95816 ==

== ENCOUNTER → 2024-12-14 10:29 | Outpatient (BNV) | payer OTHER, SELFPAY | PROVIDERS: Admitting Provider Registered Nurse; Emergency Provider Emergency Medicine; Responsible Provider Registered Nurse; Visit Provider Registered Nurse | DX: F43.21 Adjustment disorder with depressed mood (principal); G40.909 Epilepsy, unspecified, not intractable, without status epilepticus; T42.4X1A Poisoning by benzodiazepines, accidental (unintentional), initial encounter | CPT/HCPCS: 99231; 99232; 99233 ==

== ENCOUNTER → 2024-12-14 10:29 | Outpatient (BNV) | payer MEDICAID, SELFPAY | PROVIDERS: Admitting Provider Registered Nurse; Emergency Provider Emergency Medicine; Responsible Provider Registered Nurse; Visit Provider Psychiatry & Neurology Neurology | DX: G40.909 Epilepsy, unspecified, not intractable, without status epilepticus (principal) | CPT/HCPCS: 99222 ==

== ENCOUNTER 2024-12-21 08:34 | Observation (INO) | payer OTHER, SELFPAY ==
--- NOTE | 2024-12-21 08:51 | PM.IMHP ---
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 Patient presented to emergency room on 12/13/2024 with intentional Klonopin overdose complicated by agitation and aggressive behavior. On 12/14/2024 was admitted to inpatient psychiatry. Was seen by neurology for history of seizure recommended MRI with contrast which was done and showed mild white matter lesions nonspecific but concerning for demyelination process such as multiple sclerosis, EEG was unremarkable. At about 07:30 on 12/21/2024 there was a rapid response as patient was in the shower and fell with tonic-clonic movements, ?Tongue biting. Seizure lasted less than 5 minutes, patient was confused and mildly agitated while postictal. No significant head trauma, vital signs stable and alert and responsive on transfer to [facility]. Review of Systems Review of Systems: Yes all other systems are reviewed and are negative [facility] Medical History Seizures Eczema Asthma Surgical History Hx of appendectomy Social History Household Members: None Housing: Homeless Do you presently have visiting nurse or other home services: No Alcohol intake: current Alcohol intake frequency: a few times a month Alcohol type: beer and hard liquor Patient Tobacco Use Status: Current everyday Tobacco user Tobacco use type: Cigarette Cigarettes Per Day: 3 Second Hand Smoke Exposure: No Substance Use Type: Prescription Drugs Advance Directives: No Advance Directives Information Provided: Yes service: No Sexual orientation: Straight/Heterosexual Meds Allergies Allergy/AdvReac Type Severity Reaction Status Date / Time apple (APPLE) Allergy Unknown ANAPHYLAXIS Verified 12/12/24 22:02 pollen extracts (POLLEN) Allergy Unknown SNEEZING Verified 12/12/24 22:02 Active Medications: Current Medications Acetaminophen (Acetaminophen 325 Mg Tablet) 650 mg PO Q6H PRN PRN Reason: Pain, Mild 1-3,fever,headache Calcium Carbonate (Calcium Carbonate 750 Mg Tab.Chew) 750 mg PO Q4H PRN PRN Reason: Heartburn Magnesium Hydroxide (Milk Of Magnesia 30 Ml Oral.Susp) 30 ml PO DAILY PRN PRN Reason: Constipation Melatonin (Melatonin 3 Mg Tablet) 6 mg PO BEDTIME PRN PRN Reason: Insomnia Sodium Chloride (0.9 % Sodium Chloride Flush 3 Ml Syringe) 3 ml IVFLUSH [facility] Home Medications ?Medication ?Instructions ?Recorded ?Confirmed ?Last Taken ?Type albuterol sulfate 90 mcg/actuation inhalation 12/14/24 Unknown History aerosol inhaler Physical Exam Vital Signs and Narrative: General: AO X 3, no acute distress Resp: CTA bilateral, no accessory muscles used CVS: S1,S2,RRR GI: soft, non tender, non distended Assessment and Plan (1) Seizure disorder: Status: Acute Plan 34M PMH mood disorder, seizure disorder admitted from inpatient psycshiatry for seizure Seizure Monitor on telemetry, loading with 1 g of Keppra, neuro eval Abnormal MRI finding Follow up Neurology Mood disorder Care team eval prior to discharge Low risk for DVT - early ambulation Full code Quality Stroke Does the patient have a stroke diagnosis?: No VTE Prior VTE?: No VTE Risk Level:: Medical - low VTE Device Contraindication: Treatment Not Indicated VTE Drug Contraindication: Treatment Not Indicated
--- OUTSIDE RECORDS SUMMARY | 2024-12-21 08:56 | XMS_ITS | Encounter Summary ---
Author Organization [facility] Address [address] [place] [phone] Phone Care Team Providers Care Caustic Purification Operator Name Role Phone Kenton Galaviz MD Primary Care Provider Unavailabl e Encounter Details Date Type Department Care Team (Late st Contact Info) Description 11/21/2010 Documentation [facility] Family Medicine [address] [place] [address] Family Medicine, Physician [address] [place], [place] [phone] Social History Tobacco Use Types Packs/Day Years [...] on filedocumented in this encounter Care Teams Caustic Purification Operator Relationship Specialty Start Date End Date Kenton Galaviz MD PCP - General 12/05/16 documented as of this encounter
--- OUTSIDE RECORDS SUMMARY | 2024-12-21 08:56 | XMS_ITS | Encounter Summary ---
Author Organization [facility] Address [address] [place] [phone] Phone Care Team Providers Care Crystalizer Tender Name Role Phone Kenton Galaviz MD Primary Care Provider Unavailabl e Encounter Details Date Type Department Care Team (Late st Contact Info) Description 10/19/2009 Documentation [facility] [place] [address] [place] [address] Family Medicine, Physician [address] [place], [place] [phone] Social History Tobacco Use Types Packs/Day Years [...] on filedocumented in this encounter Care Teams Crystalizer Tender Relationship Specialty Start Date End Date Kenton Galaviz MD PCP - General 12/05/16 documented as of this encounter
--- OUTSIDE RECORDS SUMMARY | 2024-12-21 08:56 | XMS_ITS | Clinical Summary ---
Author Organization [facility] Address [address] [place] [phone] Phone Care Team Providers Care Driver Name Role Phone Kenton Galaviz MD Primary Care Provider Unavailabl e Immunizations Immunization Administration Dates Next Due DTP 03/29/1996, 4,03/26/1992,09/24,1991 Hep B, ped/adol 01/25/1996,10/25/1995,10/24/1994 Hib (PRP-T) 08/24/1992, 2,1991,07/25 IPV 08/24/1993,1991,1991 Influenza Split 02/22/2002 Influenza, injectable, trivalent 007,04/02/2006,04/10/2004,02/22 MMR 03/29/1996,08/24/1992 Meningococcal Conj (Menactra) MCV4P 12/04/2006 OPV 03/29/1996 Td (adult) (MBL), 2 Lf tetan us toxoid, PF, adsorbed 11/16/2003 Tdap 12/10/2007 Family History Relation Name Status Comments Brother Alive Brother: Alive and well, Hearing loss Father Father: Depress ion Mother Alive Mother: Migrain es Other Family history of Migraines, Family history of ADD/ADHD, Family history of Deafness, Family history of Asthma Social History Tobacco Use Types Packs/Day Years Used Date Smoking Tobacco: Never Assessed Sex and Gender Information Value Date Recorded Sex Assigned at Not on file Legal Sex Male 4:44 PM EDT Gender Identity Not on file Sexual Orientation Not on file Plan of Treatment Health Maintenance Due Date Last Done Comments Varicella Vaccines (1 of 2 - 13+ 2-dose series) 2004 DTaP,Tdap,and Td Vaccines (7 - Td or Tdap) 12/09/2017 12/10/2007, 11/16/2003, 03/29/1996, Additional history exists HPV Vaccines (1 - 3-dose SCDM series) 2018 COVID-19 Vaccine ( season) 2023 Influenza Vaccines (#1) 2024 02/06/20, 04/02/2006, 04/10/2004, Additional history exists HIB Vaccines Completed 08/24/1992, 02/27, 1991, Additional history exists Hepatitis B Vaccines Completed 01/25/1996, 10/25/1995, 10/24/1994 IPV Vaccines Completed 03/29/1996, 07/28, 1991, Additional history exists MMR Vaccines Completed 03/29/1996, 08/24/1992 Meningococcal Vaccine Aged Out 12/04/2006 No bladimir digna eligible based on patient's age to complete this topic Hepatitis A Vaccines Aged Out No long er eligible based on patient's age to complete this topic Men B Vaccine Aged Out No longer elig ible based on patient's age to complete this topic Pneumococcal Vaccine Aged Out No long er eligible based on patient's age to complete this topic Care Teams Driver Relationship Specialty Start Date End Date Kenton Galaviz MD PCP - General 12/05/16
--- OUTSIDE RECORDS SUMMARY | 2024-12-21 08:56 | XMS_ITS | Encounter Summary ---
Author Organization [facility] Address [address] [place] [phone] Phone Care Team Providers Care Speech Writer Name Role Phone Kenton Galaviz MD Primary Care Provider Unavailabl e Encounter Details Date Type Department Care Team (Late st Contact Info) Description 07/26/2009 Documentation [facility] Family Medicine [address] [place] [address] Family Medicine, Physician [address] [place], [place] [phone] Social History Tobacco Use Types Packs/Day Years [...] on filedocumented in this encounter Care Teams Speech Writer Relationship Specialty Start Date End Date Kenton Galaviz MD PCP - General 12/05/16 documented as of this encounter
--- OUTSIDE RECORDS SUMMARY | 2024-12-21 08:56 | XMS_ITS | Encounter Summary ---
Author Organization [facility] Address [address] [place] [address] Phone Care Team Providers Care Heavy Mobile Equipment Operator Name Role Phone Kenton Galaviz MD Primary Care Provider Unavailabl e Encounter Details Date Type Department Care Team (Late st Contact Info) Description 12/11/2016 Conversion Encounter [facility] [address] [phone] Social History Tobacco Use Types Packs/Day Years [...] on filedocumented in this encounter Care Teams Heavy Mobile Equipment Operator Relationship Specialty Start Date End Date Kenton Galaviz MD PCP - General 12/05/16 documented as of this encounter
[2024-12-21 09:23] LABS: MANUAL DIFF FLAG NO
[2024-12-21 09:25] LABS: Hematocrit 40.5 % (42.0-52.0); Hemoglobin 14.4 g/dl (14.0-18.0); Imm Gran Abs Auto 0.02 X10*3/uL (0.00-0.03); Imm Gran Pct Auto 0.3 % (0.0-0.4); Lymphocytes Absolute Auto 1.7 X10*3/uL (1.2-4.9); Mean Corpuscular HGB Conc 35.6 g/dl (31.0-36.0); Mean Corpuscular Hemoglobin 29.9 pg (27.0-33.0); Mean Corpuscular Volume 84.0 fL (80.0-98.0); NRBC Abs Auto 0.000 X10*3/uL (0.0-0.012); NRBC Pct Auto 0.0 /100WBC (0.0-0.2); Platelet Count 264 X10*3/uL (160-400); Red Blood Count 4.82 X10*6/uL (4.60-5.80); White Blood Count 6.6 X10*3/uL (4.8-10.8)
[2024-12-21] MEDS: levETIRAcetam in NaCl (iso-os) 1,000 MG/100 ML PIGGYBACK 400 MG IV (09:29)
[2024-12-21 09:44] LABS: Alanine Aminotransferase 93 U/L (0-40); Albumin Level 4.0 g/dL (3.5-5.0); Alkaline Phosphatase 95 U/L (39-117); Anion Gap 12 (12-20); Aspartate Amino Transferase 50 U/L (5-37); Blood Urea Nitrogen 16 mg/dL (9-16); Calcium 9.6 mg/dL (8.4-10.2); Carbon Dioxide 27 mmol/L (22-29); Chloride 103 mmol/L (96-108); Estimated Glomerular Filt Rate > 60; Magnesium 2.2 mg/dL (1.6-2.6); Potassium 4.6 mmol/L (3.3-5.1); Sodium 137 mmol/L (135-145); Total Protein 6.6 g/dL (6.5-8.0)
[2024-12-21 10:13] VITALS: BP 112/70; PULSE 93; RESP 18; TEMP 36.3; O2SAT 100
[2024-12-21 11:31] VITALS: BP 104/60; PULSE 77; RESP 18; TEMP 36.5; O2SAT 97
[2024-12-21 15:36] VITALS: BP 120/68; PULSE 88; RESP 16; TEMP 36.3; O2SAT 96
[2024-12-21] MEDS: Mineral Oil/Petrolatum,White 106 GM Tube 1 APPL TOPICAL (15:57)
[2024-12-21] MEDS: 0.9 % Sodium Chloride Flush 3 ML SYRINGE IVFLUSH ×2 (16:50→20:29)
--- NOTE | 2024-12-21 17:22 | PM.NEUROCN ---
History of Present Illness Data of Consult Service Date: 12/21/24 Primary Care Provider: Unknown Physician HPI Reason for consult: Seizure This is a 34 yr old man with mood disorder, seizure disorder admitted from inpatient psycshiatry for seizure. Patient presented to emergency room on 12/13/2024 with intentional Klonopin overdose complicated by agitation and aggressive behavior. On 12/14/2024 was admitted to inpatient psychiatry. Was seen by neurology for history of seizure recommended MRI with contrast which was done and showed mild white matter lesions nonspecific but concerning for demyelination process such as multiple sclerosis, EEG was unremarkable. At about 07:30 on 12/21/2024 there was a rapid response as patient was in the shower and fell with tonic-clonic movements, ?Tongue biting. Seizure lasted less than 5 minutes, patient was confused and mildly agitated while postictal. No significant head trauma, vital signs stable and alert and responsive on transfer to [facility] Past Medical History Medical History Seizures Eczema Asthma Surgical History Surgical History Hx of appendectomy Social History Social History Household Members: None Housing: Homeless Do you presently have visiting nurse or other home services: No Alcohol intake: current Alcohol intake frequency: a few times a month Alcohol type: beer and hard liquor Comment: sitter in room Patient Tobacco Use Status: Current everyday Tobacco user Tobacco use type: Cigarette Cigarettes Per Day: 3 Second Hand Smoke Exposure: No Substance Use Type: Prescription Drugs Have you been hit, kicked, punched, or otherwise hurt by someone within the past year? If so, by whom?: No Do you feel safe in your current relationship?: No Current Relationship Is there a partner from a previous relationship who is making you feel unsafe now?: No Are you made to feel afraid or neglected: No Spiritual Healthcare Practices: none Advance Directives: No Advance Directives Information Provided: Yes Do you have a plan to hurt others: No Plan Recently lost weight without trying: No service: No Sexual orientation: Straight/Heterosexual Meds Allergies Allergy/AdvReac Type Severity Reaction Status Date / Time apple (APPLE) Allergy Unknown ANAPHYLAXIS Verified 12/12/24 22:02 pollen extracts (POLLEN) Allergy Unknown SNEEZING Verified 12/12/24 22:02 Active Medications: Current Medications Acetaminophen (Acetaminophen 325 Mg Tablet) 650 mg PO Q6H PRN PRN Reason: Pain, Mild 1-3,fever,headache Al Hydroxide/Mg Hydroxide (Magnesium Hydrox/Alum Hydrox 30 Ml Oral.Susp) 30 ml PO Q6H PRN PRN Reason: Heartburn/Nausea Albuterol Sulfate (Albuterol Sulfate 90 Mcg 8 Gm Inhaler) 2 puff INHALE RQ6H PRN PRN Reason: Shortness of Breath/Wheezing Calcium Carbonate (Calcium Carbonate 750 Mg Tab.Chew) 750 mg PO Q4H PRN PRN Reason: Heartburn Clonidine HCl (Clonidine Hcl 0.1 Mg Tablet) 0.1 mg PO Q4H PRN; Protocol PRN Reason: moderate anxiety Hydrocortisone (Hydrocortisone 1 % Cream 28.35 Gm Tube) 1 appl TOPICAL QID GALE Last Admin: 12/21/24 16:52 Dose: Not Given Hydroxyzine HCl (Hydroxyzine Hcl 50 Mg Tablet) 50 mg PO Q6H PRN PRN Reason: mild anxiety Last Admin: 12/21/24 16:48 Dose: 50 mg Ibuprofen (Ibuprofen 600 Mg Tablet) 600 mg PO Q6H PRN PRN Reason: Headache Magnesium Hydroxide (Milk Of Magnesia 30 Ml Oral.Susp) 30 ml PO DAILY PRN PRN Reason: Constipation Melatonin (Melatonin 3 Mg Tablet) 6 mg PO BEDTIME PRN PRN Reason: Insomnia Multi-Ingred Cream/Lotion/Oil/Oint (Mineral Oil/Petrolatum,White 106 Gm Tube) 1 appl TOPICAL QID PRN; Protocol PRN Reason: continued itchiness Last Admin: 12/21/24 15:57 Dose: 1 appl Nicotine (Nicotine 21 Mg Patch.Td24) 21 mg TRANSDERMA DAILY GALE Nicotine Polacrilex (Nicotine Polacrilex 2 Mg Gum) 4 mg BUCCAL Q2H PRN PRN Reason: Nicotine Cravings Olanzapine (Olanzapine 5 Mg Tablet) 5 mg PO Q4H PRN PRN Reason: agitation Pseudoephedrine HCl (Pseudoephedrine Hcl 30 Mg Tablet) 30 mg PO Q6H PRN PRN Reason: congestion Sertraline HCl (Sertraline Hcl 50 Mg Tablet) 50 mg PO DAILY GALE Sodium Chloride (0.9 % Sodium Chloride Flush 3 Ml Syringe) 3 ml IVFLUSH QSHIFT GALE Last Admin: 12/21/24 16:50 Dose: 3 ml Sodium Chloride (Sodium Chloride 0.65 % Nasal 44 Ml Sprbtl) 1 spray NOSTRIL-B Q4H PRN PRN Reason: Congestion Thiamine HCl (Thiamine Hcl 100 Mg Tablet) 100 mg PO DAILY GALE Trazodone HCl (Trazodone Hcl 50 Mg Tablet) 50 mg PO BEDTIME MRX1 PRN PRN Reason: Insomnia Triamcinolone Acetonide (Triamcinolone Acet 0.1 % Oint 15 Gm Tube) 1 appl TOPICAL BID PRN PRN Reason: psoriasis Home Medications ?Medication ?Instructions ?Recorded ?Confirmed ?Last Taken ?Type albuterol sulfate 90 mcg/actuation inhalation 12/14/24 Unknown History aerosol inhaler Physical Exam Vital Signs: Vital Signs: Last Vital Signs Temp 97.3 F 12/21/24 15:36 Pulse 88 12/21/24 15:36 Resp 16 12/21/24 15:36 BP 120/68 12/21/24 15:36 Pulse Ox 96 12/21/24 15:36 O2 Del Method Room Air 12/21/24 15:36 Neuro: Other: Nonfocal neurological examination Results Labs 12/21/24 09:17 12/21/24 09:17 Labs: Short CBC 12/21/24 Range/Units 09:17 WBC 6.6 (4.8-10.8) X10*3/uL Hgb 14.4 (14.0-18.0) g/dl Hct 40.5 L (42.0-52.0) % Plt Count 264 D (160-400) X10*3/uL BMP 12/21/24 09:17 Sodium 137 Potassium 4.6 Chloride 103 Carbon Dioxide 27 BUN 16 Creatinine 0.82 Calcium 9.6 Liver Function 12/21/24 Range/Units 09:17 Total Bilirubin 0.5 (0.0-1.0) mg/dL Direct Bilirubin 0.2 (0.0-0.5) mg/dL AST 50 H (5-37) U/L ALT 93 H (0-40) U/L Alkaline Phosphatase 95 (39-117) U/L Albumin 4.0 (3.5-5.0) g/dL Assessment and Plan (1) Seizure disorder: Status: Acute Start Keppra 500 mg b.i.d.. Outpatient 48 hour ambulatory EEG (2) Benzodiazepine overdose: Status: Acute Procedures Date of Service Date of Service: 12/21/24
[2024-12-21 19:57] VITALS: BP 119/75; PULSE 87; RESP 16; TEMP 37.3; O2SAT 97
--- NOTE | 2024-12-22 00:19 | PC.NURSE ---
At start of shift patient noted to have visitor present with multiple bags of items. Patient from [facility] with OD/SI. Patient not permitted visitors as per policy. Visitor asked to leave. Patient also noted to have cellphone present at bedside and at nurses station. Security called to retrieve phone from patient. Phone secured in storage on unit. Shortly after patient began swearing, asking for cellphone, verbally abusive, calling this write words such as b*tch, ugly a toothbrush, repeating multiple verbally abusive words over and over. Security called to speak with patient to try to deescalate. Patient swearing at security, medical charge entry specialist, and nurse cutting department supervisor. Repeating calling names and verbally abusive. Refusing telemetry. MD notified. This RN then notified patient was asking for his sleeping medications. This RN went to patients room with PRN sleep aids, patient immediately said oh there she is. the f*cking b*tch, yeah you, you are a f*cking b*tch. you should have minded your own business . Patient educated on hospital policy and asked to speak with respect and stop swearing. Patient continued to swear. This RN left room as patient verbally abusive. No prn medications given. Patient then rang again asking for medication. This RN to room with medication, patient stated oh there she is like a good girl . Patient asked to please speak with respect. Patient called this RN stupid a b*itch. No prn medications were given. This RN also to room to give 1:1 sitter paperwork. Patient yelled out you ugly as f*ck you know that b*itch. you look like you were dropped on your head as a baby . 1:[address] safety maintained. plan of care ongoing.
--- NOTE | 2024-12-22 02:22 | PC.NURSE ---
Pt once again asked for PRN sleeping aids. This RN to bedside with Trazadone and melatonin. Patient stated thats right you b*itch leave that sh*t right there. This RN stated i will but please let me scan your wristband. Patient refused to allow this RN to scan band. Began flailing arm around stating haha get it haha you b*tch This RN stated if you want you medication then please let me scan your wristband. Patient refused. This RN stated he cannot get his medication without allowing name verification. Patient told this RN f*ck off you ugly b*tch . Medications wasted in pyxis.
--- NOTE | 2024-12-22 06:02 | PC.NURSE ---
Patient rang call corey. This RN in to assess needs. Before this teletypewriter installer could say anything, patient showed middle finger and said carlos b*tch . safety maintained. 1:[address]
--- NOTE | 2024-12-22 06:06 | PC.NURSE ---
Patient refusing vitals and assessments. made aware.
[2024-12-22 06:56] LABS: Anion Gap 13 (12-20); Blood Urea Nitrogen 15 mg/dL (9-16); Calcium 9.2 mg/dL (8.4-10.2); Carbon Dioxide 26 mmol/L (22-29); Chloride 102 mmol/L (96-108); Estimated Glomerular Filt Rate > 60; Magnesium 2.1 mg/dL (1.6-2.6); Potassium 4.1 mmol/L (3.3-5.1); Sodium 137 mmol/L (135-145)
[2024-12-22 07:09] LABS: Hematocrit 40.3 % (42.0-52.0); Hemoglobin 14.0 g/dl (14.0-18.0); Mean Corpuscular HGB Conc 34.7 g/dl (31.0-36.0); Mean Corpuscular Hemoglobin 29.4 pg (27.0-33.0); Mean Corpuscular Volume 84.5 fL (80.0-98.0); NRBC Abs Auto 0.030 X10*3/uL (0.0-0.012); NRBC Pct Auto 0.4 /100WBC (0.0-0.2); Platelet Count 283 X10*3/uL (160-400); Red Blood Count 4.77 X10*6/uL (4.60-5.80); White Blood Count 7.2 X10*3/uL (4.8-10.8)
--- NOTE | 2024-12-22 07:18 | PC.NURSE ---
This RN in hallway next to patients room. Patient ambulating to bathroom. Patient told this RN have a good day you f*cking bethanie*randy. you got some good d*ck sucking lips. yeah filipe kovacs*randy .
--- NOTE | 2024-12-22 07:39 | PC.NURSE ---
security called at start of shift d/t pt being verbally abusive towards staff and threatening to leave AMA. notified. per MD pt cannot leave AMA. pt refusing all meds and assessments. pt stated i am not a gerbil or guinea pig i am not taking no meds, goodbye. i want to get the f*ck out of here . aware. awaiting care team eval. 1:1 sitter at bedside. bed in lowest locked position. call nicole in reach.
[2024-12-22 08:02] VITALS: BP 127/63; PULSE 97; RESP 17; TEMP 36.8; O2SAT 99
--- NOTE | 2024-12-22 08:08 | PM.DS ---
DS: Providers Provider Date of Service: 12/22/24 Date of admission: 12/21/24 08:34 Date of discharge: 12/22/24 Primary care physician: Unknown Physician Consults: 12/21/24 08:15 Consult to Neurology Routine Consulting Provider: [facility] Reason for consultation: seizure DS: Diagnosis Discharge Diagnosis (1) Seizure disorder: Status: Acute (2) Benzodiazepine overdose: Status: Acute DS: Summary Hospital Course Hospital Course: from initial hpi: 34M PMH mood disorder, seizure disorder admitted from inpatient psycshiatry for seizure. Patient presented to emergency room on 12/13/2024 with intentional Klonopin overdose complicated by agitation and aggressive behavior. On 12/14/2024 was admitted to inpatient psychiatry. Was seen by neurology for history of seizure recommended MRI with contrast which was done and showed mild white matter lesions nonspecific but concerning for demyelination process such as multiple sclerosis, EEG was unremarkable. At about 07:30 on 12/21/2024 there was a rapid response as patient was in the shower and fell with tonic-clonic movements, ?Tongue biting. Seizure lasted less than 5 minutes, patient was confused and mildly agitated while postictal. No significant head trauma, vital signs stable and alert and responsive on transfer to [facility]. hospital course: Patient was observed on telemetry had no further episodes of seizure, was seen by Neurology who recommended starting Keppra 500 mg b.i.d. and obtaining outpatient 48 hour ambulatory EEG. No driving until cleared by Neurology. For abnormality on MRI can follow up with Neurology as outpatient. Was seen by Psychiatry who felt patient no longer required inpatient psychiatry admission. Currently denying any suicide ideation. We will be discharged home to follow up with services as outpatient. Starting on sertraline 25 mg daily. Time Attestation Discharge Coordination Time (in mins): 32 Quality: Safe Use of Opioids Does Pt have an Active Cancer Diagnosis on the Problem List?: No Quality: Stroke Does the patient have a stroke diagnosis?: No Physical Exam Exam: Exam: General: AO X 3 Resp: CTA bilateral, no accessory muscles used CVS: S1,S2,RRR GI: soft, non tender, non distended Vital Signs: Vital Signs: Last Vital Signs Temp 98.3 F 12/22/24 08:02 Pulse 97 12/22/24 08:02 Resp 17 12/22/24 08:02 BP 127/63 12/22/24 08:02 Pulse Ox 99 12/22/24 08:02 O2 Del Method Room Air 12/22/24 08:02 DS: Data Data Completed and Pending Labs on day of discharge: Laboratory Results - last 24 hr 12/21/24 12/22/24 09:17 06:08 WBC 6.6 7.2 RBC 4.82 4.77 Hgb 14.4 14.0 Hct 40.5 L 40.3 L MCV 84.0 84.5 MCH 29.9 29.4 MCHC 35.6 34.7 RDW 11.9 11.9 Plt Count 264 D 283 MPV 9.4 9.6 Immature Gran % (Auto) 0.3 Neut % (Auto) 56.7 Lymph % (Auto) 26.4 George % (Auto) 12.8 H Eos % (Auto) 3.3 Baso % (Auto) 0.5 Lymph # (Auto) 1.7 George # (Auto) 0.8 Eos # (Auto) 0.2 Baso # (Auto) 0.0 Abs Immat Gran (auto) 0.02 Absolute Neuts (auto) 3.7 Absolute Nucleated RBC 0.000 0.030 H Nucleated RBC % (auto) 0.0 0.4 H Sodium 137 137 Potassium 4.6 4.1 Chloride 103 102 Carbon Dioxide 27 26 Anion Gap 12 13 BUN 16 15 Creatinine 0.82 0.77 Estim Creat Clear Calc TNP TNP Estimated GFR > 60 > 60 Random Glucose 87 Fasting Glucose 91 Lactic Acid 1.8 Calcium 9.6 9.2 Magnesium 2.2 2.1 Total Bilirubin 0.5 Direct Bilirubin 0.2 AST 50 H ALT 93 H Alkaline Phosphatase 95 Total Protein 6.6 Albumin 4.0 Discharge Plan Discharge Anticipated Discharge Date/Time: 12/22/24 08:05 Patient Disposition: Home, Self-Care Discharge Diagnosis: seizure Referrals: [facility]: Elham Whiteside [Other] - 12/25/24 10:30 am Referral Note: Hospital discharge appointment Substance abuse case management Appointment in person at [facility] in [place], [place] [facility]: Bao Diaz (therapy) [Other] - 12/25/24 11:00 am Referral Note: Hospital discharge appointment Initial diagnostic evaluation for therapy. Appointment in person at [facility]: Lisa Noonan (psychiatry) [Other] - 01/05/25 3:20 pm Referral Note: Hospital discharge appointment Initial psychiatric evaluation for psychiatric medication management Appointment in person at [facility] in [place], [place] Physician,Johann J [Primary Care Provider, Medical] - 1 Week Bo Howell MD [Physician, Neurology] - 1 Week Discharge Medications: New levetiracetam 500 mg Tablet 500 mg PO BID Qty: 180 0RF sertraline 25 mg tablet 25 mg PO DAILY Qty: 90 0RF Continued hydroxyzine HCl 25 mg tablet 25 mg PO TID PRN (Reason: itching) Qty: 10 0RF hydrocortisone 2.5 % cream 1 applic topical BID PRN (Reason: rash) Qty: 30 0RF albuterol sulfate 90 mcg/actuation Hfa Aerosol Inhaler INHALATION Discharge Orders: Discharge Order (Routine); Ordered 12/22/24 Ordered By: Srinath Salazar Diet: Advance to usual diet Activity on Discharge: As tolerated Stand Alone Forms: Patient Portal Discharge page Print Language: Hungarian Care Plan Goals: prevent seizures Health Concerns: seizures Plan of Treatment: keppra 500mg bid 48hr ambulatory EEG no driving starting sertraline 25mg daily Assessment: see above
--- NOTE | 2024-12-22 08:40 | MHC.CM.PN ---
Pt discharged prior to being sen by this CM.
== END 2024-12-22 08:25 | disposition home or self-care (01) ==
PROVIDERS: Admitting Provider Internal Medicine; Visit Provider Internal Medicine
DX: G40.909 Epilepsy, unspecified, not intractable, without status epilepticus (principal); F39 Unspecified mood [affective] disorder; R45.1 Restlessness and agitation; F99 Mental disorder, not otherwise specified
CPT/HCPCS: 36415; 80048; 80076; 83605; 83735; 85025; 85027; 96365; 99222; J1953

== ENCOUNTER → 2024-12-21 08:34 | Outpatient (BNV) | payer MEDICAID, SELFPAY | PROVIDERS: Admitting Provider Internal Medicine; Visit Provider Internal Medicine | DX: G40.909 Epilepsy, unspecified, not intractable, without status epilepticus (principal) | CPT/HCPCS: 99223 ==

== ENCOUNTER → 2024-12-21 08:34 | Outpatient (BNV) | payer MEDICAID, SELFPAY | PROVIDERS: Admitting Provider Internal Medicine; Visit Provider Psychiatry & Neurology Neurology | DX: G40.909 Epilepsy, unspecified, not intractable, without status epilepticus (principal); T42.4X1A Poisoning by benzodiazepines, accidental (unintentional), initial encounter | CPT/HCPCS: 99222 ==

== ENCOUNTER 2024-12-25 09:56 | Emergency (ER) | payer OTHER, SELFPAY ==
[2024-12-25 09:57] VITALS: BP 141/71; PULSE 89; RESP 18; TEMP 36.4; O2SAT 96; BMI 21.5
--- NOTE | 2024-12-25 10:10 | ED_ITS ---
HPI - Seizure General Chief Complaint: Seizure Stated Complaint: ?seizure Time Seen by Provider: 12/25/24 10:05 Source: patient Mode of arrival: ambulatory Limitations: no limitations History of Present Illness ED Provider: HPI Narrative: Recent discharge with a new onset of seizure on levetiracetam 500 mg twice a day has not picked up the prescription he states the prescription was not the pharmacy, history of intentional benzodiazepine overdose, states that he started feeling extremely anxious and shaky and felt like he is going to have a seizure, but he did not have a seizure, however also he did not slat pickler his medications. Denies ongoing drug use, by a drank alcohol last night as well. Related Data Home Medications ?Medication ?Instructions ?Recorded ?Confirmed albuterol sulfate 90 mcg/actuation inhalation 12/14/24 aerosol inhaler Previous Rx's ?Medication ?Instructions ?Recorded hydrocortisone 2.5 % topical cream 1 applic topical BI D PRN rash #30 01/30/20 grams hydroxyzine HCl 25 mg tablet 25 mg PO TID PRN itching #10 tabs 09/13/20 levetiracetam 500 mg tablet 500 mg PO BID #180 tabs sertraline 25 mg tablet 25 mg PO DAILY #90 tabs 11/26 12/19 levetiracetam 500 mg tablet 500 mg PO BID #180 tabs sertraline 25 mg tablet 25 mg PO DAILY #30 tabs 11/27 05/21 Allergies Allergy/AdvReac Type Severity Reaction Status Date / Time apple (APPLE) Allergy Unknown ANAPHYLAXIS Verified 12/25/24 09:58 pollen extracts (POLLEN) Allergy Unknown SNEEZING Verified 12/25/24 09:58 Review of Systems Constitutional: Constitutional: Reports as per [facility] Past Medical History Medical History Seizures Eczema Asthma Surgical History Hx of appendectomy Social History Social History Household Members: None Housing: Homeless Do you presently have visiting nurse or other home services: No Alcohol intake: current Alcohol intake frequency: a few times a month Alcohol type: beer and hard liquor Comment: 1:1 sitter Patient Tobacco Use Status: Current everyday Tobacco user Tobacco use type: Cigarette Cigarettes Per Day: 3 Second Hand Smoke Exposure: No Substance Use Type: Prescription Drugs Advance Directives: No Advance Directives Information Provided: Yes service: No Sexual orientation: Straight/Heterosexual Physical Exam Vital Signs: Vital Signs: Last Vital Signs Temp 97.6 F 12/25/24 09:57 Pulse 89 12/25/24 09:57 Resp 18 12/25/24 09:57 BP 141/71 H 12/25/24 09:57 Pulse Ox 96 12/25/24 09:57 O2 Del Method Room Air 12/25/24 09:57 BMI result Body Mass Index 21.5 Const: Other: * Gen: ?Overall well-appearing patient * HEENT: PERRLA, EOMI, MMM, * Neck: Supple, no LAD * CV: RRR, no obvious murmurs appreciated * Resp: ?No wheezing rales rhonchi no stridor moving air well * Abd: ?Bowel sounds are present, no tenderness no rebound no rigidity * MSK: FROM, strength 5/5 all extremities * Skin: Warm, dry, intact, * Neuro: ?Alert and oriented x3, moving upper and lower extremities s ymmetrically, no obvious facial asymmetry noted Medical Decision Making Medical Decision Making MDM Narrative: Patient has reported having seizures last time 2 days ago, he was discharged on the , states he is still did not take his levetiracetam because it was not at the pharmacy, mask in the company secretary to call [facility] and confirm that he has not medications available, I will load him with IV levetiracetam for the day, to prevent seizures, 2 does not sound like he had a seizure today he is not postictal, no blood in the airway, he is alert and oriented he did drink yesterday, and it sounds like he panicked and he states that he felt like he is going to have a seizure and so he came into the ER. 10:23, neither [facility] or [facility] pharmacy [facility] [address] has patient's medications, I will represcribe them Differential Diagnosis Differential Diagnoses: The differential diagnosis associated with the presentation includes Admission/Observation Consideration of admission/observation: Escalation of care including admission/observation considered 2022 Emergency Medicine Coding Guide from [email or web address] on 12/25/2024 All calculations should be rechecked by clinician prior to use RESULT SUMMARY: 5 Estimated Level of Service Problems: High (5) Risk: High (5) Data: Extensive (5) NARRATIVE MDM: This patient's problem complexity is High as patient: may have an acute or chronic illness/injury posing a threat to life or body function. This patient's risk is High due to: overall presentation requiring evaluation for a potentially High-risk process. This patient's data complexity is Extensive due to: -multiple tests ordered -external notes reviewed -independent interpretation of imaging or EKG INPUTS: Number and Complexity ?> 2 = 5: illness/injury w/life or body threat (b) Risk level ?> 4 = High Tests ordered ?> 2 = 2 Tests results reviewed (excluding labs) ?> 1 = 1 Prior external notes reviewed ?> 1 = 1 Assessment requiring and independent historian ?> 0 = No Independent interpretation of tests ?> 1 = Yes Discussed management/test interpretation w/external professional ?> 0 = No Lab Data MDM Lab Attestation statement: I reviewed the patient's lab results. Independent Interpretation I performed an independent interpretation of an: EKG (86 beats per minute otherwise normal ECG without dysrhythmia, AV stuart blocks or ST-T changes to suspect underlying ACS, my independent interpretation) External Record Review External record reviewed: Inpatient record Critical Care Time Critical Care Time Critical Care Time: Yes Total Critical Care Time: 35 Attestation: Time is exclusive of separately billable procedures. Time includes: direct patient care, patient reassessment, coordination of patient care, interpretation of data (laboratory data, pulse oximetry, arterial blood gases and chest xrays), review of patient's medical records, medical consultation and documentation of patient care. Procedures excluded from critical care time: central intravenous line placement and electrocardiography. Discharge Plan Discharge Clinical Impression: Seizure disorder Additional Instructions: I recent medications to [facility] pharmacy on [facility], take levetiracetam 500 mg twice a day starting tomorrow, and sertraline 25 mg, look at your discharge instructions of the hospital, you have some other important follow up Prescriptions: New levetiracetam 500 mg tablet 500 mg PO BID Qty: 180 0RF sertraline 25 mg tablet 25 mg PO DAILY Qty: 30 0RF No Action hydroxyzine HCl 25 mg tablet 25 mg PO TID PRN (Reason: itching) Qty: 10 0RF hydrocortisone 2.5 % cream 1 applic topical BID PRN (Reason: rash) Qty: 30 0RF albuterol sulfate 90 mcg/actuation Hfa Aerosol Inhaler INHALATION levetiracetam 500 mg Tablet 500 mg PO BID Qty: 180 0RF sertraline 25 mg tablet 25 mg PO DAILY Qty: 90 0RF Print Language: Macedonian
--- NOTE | 2024-12-25 10:13 | ECG_ITS ---
Test Reason : SEIZURE Blood Pressure : */* mmHG Vent. Rate : 86 BPM Atrial Rate : 86 BPM P-R Int : 136 ms QRS Dur : 80 ms QT Int : 366 ms P-R-T Axes : 52 28 17 degrees QTcB Int : 437 ms Normal sinus rhythm Normal ECG When compared with ECG of 19-Dec-2024 10:03, No significant change was found Referred By: Demario Andrew Electronically Signed By: NICKIE KRAUS MD
--- OUTSIDE RECORDS SUMMARY | 2024-12-25 10:15 | XMS_ITS | Encounter Summary ---
Author Organization [facility] Address [address] [place] [address] Phone Care Team Providers Care Metal Roofing Mechanic Name Role Phone Kenton Galaviz MD Primary Care Provider Unavailabl e Encounter Details Date Type Department Care Team (Late st Contact Info) Description 12/11/2016 Conversion Encounter [facility] - [address] [id number] Social History Tobacco Use Types Packs/Day Years [...] on filedocumented in this encounter Care Teams Metal Roofing Mechanic Relationship Specialty Start Date End Date Kenton Galaviz MD PCP - General 12/05/16 documented as of this encounter
--- OUTSIDE RECORDS SUMMARY | 2024-12-25 10:15 | XMS_ITS | Clinical Summary ---
Author Organization [facility] Address [address] [place] [phone] Phone Care Team Providers Care Tomato Grader Name Role Phone Kenton Galaviz MD Primary [...] age to complete this topic Care Teams Tomato Grader Relationship Specialty Start Date End Date Kenton Galaviz MD PCP - General 12/05/16
--- OUTSIDE RECORDS SUMMARY | 2024-12-25 10:15 | XMS_ITS | Encounter Summary ---
Author Organization [facility] Address [address] [place] [phone] Phone Care Team Providers Care Wood Patternmaker Apprentice Name Role Phone Kenton Galaviz MD Primary Care Provider Unavailabl e Encounter Details Date Type Department Care Team (Late st Contact Info) Description 11/21/2010 Documentation [facility] Family Medicine [address] [place] [address] Family Medicine, Physician [address] [place], [place] [phone] Social History Tobacco Use Types Packs/Day Years [...] on filedocumented in this encounter Care Teams Wood Patternmaker Apprentice Relationship Specialty Start Date End Date Kenton Galaviz MD PCP - General 12/05/16 documented as of this encounter
--- OUTSIDE RECORDS SUMMARY | 2024-12-25 10:15 | XMS_ITS | Encounter Summary ---
Author Organization [facility] Address [address] [place] [phone] Phone Care Team Providers Care Consulting Systems Engineer Name Role Phone Kenton Galaviz MD Primary Care Provider Unavailabl e Encounter Details Date Type Department Care Team (Late st Contact Info) Description 07/26/2009 Documentation [facility] Family Medicine [address] [place] [address] Family Medicine, Physician [address] [place], [place] [phone] Social History Tobacco Use Types Packs/Day Years [...] on filedocumented in this encounter Care Teams Consulting Systems Engineer Relationship Specialty Start Date End Date Kenton Galaviz MD PCP - General 12/05/16 documented as of this encounter
--- OUTSIDE RECORDS SUMMARY | 2024-12-25 10:15 | XMS_ITS | Encounter Summary ---
Author Organization [facility] Address [address] [place] [phone] Phone Care Team Providers Care Timber Deadener Name Role Phone Kenton Galaviz MD Primary Care Provider Unavailabl e Encounter Details Date Type Department Care Team (Late st Contact Info) Description 10/19/2009 Documentation [facility] Family Medicine [address] [place] [address] Family Medicine, Physician [address] [place], [place] [phone] Social History Tobacco Use Types Packs/Day Years [...] on filedocumented in this encounter Care Teams Timber Deadener Relationship Specialty Start Date End Date Kenton Galaviz MD PCP - General 12/05/16 documented as of this encounter
[2024-12-25 10:44] LABS: MANUAL DIFF FLAG NO
[2024-12-25 10:46] LABS: Hematocrit 34.8 % (42.0-52.0); Hemoglobin 12.3 g/dl (14.0-18.0); Imm Gran Abs Auto 0.01 X10*3/uL (0.00-0.03); Imm Gran Pct Auto 0.2 % (0.0-0.4); Lymphocytes Absolute Auto 1.7 X10*3/uL (1.2-4.9); Mean Corpuscular HGB Conc 35.3 g/dl (31.0-36.0); Mean Corpuscular Hemoglobin 29.8 pg (27.0-33.0); Mean Corpuscular Volume 84.3 fL (80.0-98.0); NRBC Abs Auto 0.000 X10*3/uL (0.0-0.012); NRBC Pct Auto 0.0 /100WBC (0.0-0.2); Platelet Count 268 X10*3/uL (160-400); Red Blood Count 4.13 X10*6/uL (4.60-5.80); White Blood Count 5.3 X10*3/uL (4.8-10.8)
[2024-12-25] MEDS: levETIRAcetam in NaCl (iso-os) 1,000 MG/100 ML PIGGYBACK 400 MG IV (10:49)
[2024-12-25 10:57] LABS: Anion Gap 12 (12-20); Blood Urea Nitrogen 12 mg/dL (9-16); Calcium 8.8 mg/dL (8.4-10.2); Carbon Dioxide 26 mmol/L (22-29); Chloride 110 mmol/L (96-108); Creatinine Clr Calc Pharmacy 122.9; Estimated Glomerular Filt Rate > 60; Potassium 3.8 mmol/L (3.3-5.1); Sodium 144 mmol/L (135-145)
[2024-12-25 11:02] VITALS: BP 111/77; PULSE 88; RESP 18; TEMP 36.2; O2SAT 97
[2024-12-25 11:34] VITALS: BP 111/77; PULSE 88; RESP 18; TEMP 36.2; O2SAT 97
== END 2024-12-25 11:35 | disposition home or self-care (01) ==
PROVIDERS: Emergency Provider Emergency Medicine
DX: R56.9 Unspecified convulsions (principal); F41.9 Anxiety disorder, unspecified; F17.210 Nicotine dependence, cigarettes, uncomplicated; Z91.51 Personal history of suicidal behavior; Z79.899 Other long term (current) drug therapy
CPT/HCPCS: 36415; 80048; 85025; 93005; 96374; 99284; J1953

== ENCOUNTER → 2024-12-25 10:13 | Outpatient (BNV) | payer OTHER, SELFPAY | PROVIDERS: Emergency Provider Emergency Medicine; Visit Provider Internal Medicine Cardiovascular Disease | DX: R56.9 Unspecified convulsions (principal) | CPT/HCPCS: 93010 ==

== ENCOUNTER 2024-12-30 10:52 | Emergency (ER) | payer OTHER, SELFPAY ==
--- OUTSIDE RECORDS SUMMARY | 2005-05-13 12:42 | XMS_ITS | Continuity of Care Document ---
Author Organization [facility] Address [address] [place] [address] Phone Care Team Providers Care Animal Care Technician Name Role Phone Macario Biggs MD Unavailable Unavailable Advance Directives Directive Yes / No Effective Date File Name No Information Encounters Encounter Description Practice Location Reason(s) For Visit Diagnoses Date Provider Providers Copied on Encounter [facility], [address] [place], [place], [id number], tel:[phone] [facility] Office 93 No Information Dian Sorto. [address] [facility], [address], [place], [place], [facility], . tel:[phone] Family History Family Member Type Diagnosis Age At Onset No Information Payers Payer name Insurance type Covered green party ID Authoriza tion(s) No Information Social History [...]
--- NOTE | ~2024-12-30 | CT_ITS ---
EXAMINATION: CT ANGIOGRAM CHEST CLINICAL INFORMATION: Shortness of breath COMPARISON: Same-day chest x-ray TECHNIQUE: Multiple axial images were obtained through the chest after the administration of 65 mL of Omnipaque 350 intravenous contrast. Extensive vascular post-processing including two-dimensional and three-dimensional reformatted images were created and reviewed on an independent workstation. This CT examination was performed using dose optimization techniques as appropriate, variously including the following: *Automated exposure control *Adjustment of mA and/or kV according to patient size (this includes techniques or standardized protocols for targeted exams where dose is matched to indication/reason for exam; i.e. extremities or head) *Use of iterative reconstruction technique DLP: 262 mGY*cm FINDINGS: QUALITY OF STUDY/CONTRAST BOLUS: Adequate PULMONARY ARTERIES: No filling defects are evident in the pulmonary arteries. THORACIC AORTA: There is no aneurysm or atherosclerotic ossification. LUNGS AND PLEURA: Lungs are clear. There is no pleural effusion or pleural thickening. MEDIASTINUM: Prominent soft tissue in the anterior superior mediastinum is likely related to thymus. CORONARY ARTERY CALCIFICATION: No calcifications are demonstrated. CHEST WALL/AXILLA: Borderline nodes are present in the bilateral axilla. The largest node measures 10 mm short axis but retains its fatty hilum. UPPER ABDOMEN: Unremarkable BONES: Multiple Schmorl's nodes are noted involving the endplates of the lower thoracic and upper lumbar spine. CT/CT angio chest PE protocol IMPRESSION: No evidence of pulmonary embolus. Borderline axillary lymph nodes are likely reactive/hyperplastic in nature. Prominent soft tissue in the anterior superior mediastinum is likely related to thymus. 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 Thymic neoplasm and lymphoma are unlikely. Fleischner guidelines were followed. Electronically signed by: Te Sandhu MD 12/30/2024 02:45 PM EDT
--- NOTE | ~2024-12-30 | XR_ITS ---
EXAMINATION: XR CHEST CLINICAL INFORMATION: chest pain COMPARISON: None available. TECHNIQUE: 2 views of the chest were obtained. FINDINGS: Small vague opacity projects in the left lower third lung zone that was not evident on the prior examination. Abnormalities not clearly identified on the lateral view. Lungs are clear otherwise. No pleural effusion is evident. XR/XR chest 2V IMPRESSION: Vague opacity in the left lower third lung zone could represent minimal atelectasis or mild pneumonia. Electronically signed by: Te Sandhu MD 12/30/2024 11:25 AM EDT
--- NOTE | 2024-12-30 10:54 | ECG_ITS ---
Test Reason : CHEST PAIN Blood Pressure : */* mmHG Vent. Rate : 94 BPM Atrial Rate : 94 BPM P-R Int : 122 ms QRS Dur : 88 ms QT Int : 364 ms P-R-T Axes : 51 53 30 degrees QTcB Int : 455 ms Normal sinus rhythm Normal ECG When compared with ECG of 25-Dec-2024 10:22, No significant change was found Referred By: Generic ED Physician Electronically Signed By: Christos Marshall
[2024-12-30 10:59] VITALS: BP 112/54; PULSE 80; RESP 18; TEMP 36.5; O2SAT 96; BMI 21.7
--- NOTE | 2024-12-30 10:59 | ED.GENADULT ---
HPI - General Adult General Chief complaint: Chest Pain Stated complaint: chest pain Time Seen by Provider: 12/30/24 12:01 Source: patient Mode of arrival: ambulatory Limitations: no limitations History of Present Illness ED Provider: TYLER Gonzales HPI narrative: 34-year-old male history of seizures, eczema, asthma presents to emergency department with shortness of breath and chest pain ongoing for the past 2 months worsening. He reports it hurts to take a deep breath in and he does not feel like he can not fully take a breath due to the discomfort. He thought it was going to get better on its own however is not been improving instead it is worsening. Patient does endorse smoking however denies drinking alcohol. He tells me he has a history of asthma but this feels different. No history of DVT or PE. Denies long travel or sedentary lifestyle. Denies fevers, chills, productive cough, nausea, vomiting, abdominal pain, headache, vision changes, dizziness and weakness. Related Data Home Medications ?Medication ?Instructions ?Recorded ?Confirmed albuterol sulfate 90 mcg/actuation inhalation 12/14/24 aerosol inhaler Previous Rx's ?Medication ?Instructions ?Recorded hydrocortisone 2.5 % topical cream 1 applic topical BID PRN rash #30 01/30/20 grams hydroxyzine HCl 25 mg tablet 25 mg PO TID PRN itching #10 tabs 09/13/20 levetiracetam 500 mg tablet 500 mg PO BID #180 tabs 12/22/24 sertraline 25 mg tablet 25 mg PO DAILY #90 tabs 12/22/24 levetiracetam 500 mg tablet 500 mg PO BID #180 tabs 12/25/24 sertraline 25 mg tablet 25 mg PO DAILY #30 tabs 12/25/24 doxycycline hyclate 100 mg capsule 100 mg PO BID 10 days #20 caps 12/30/24 Allergies Allergy/AdvReac Type Severity Reaction Status Date / Time apple (APPLE) Allergy Unknown ANAPHYLAXIS Verified 12/30/24 11:01 pollen extracts (POLLEN) Allergy Unknown SNEEZING Verified 12/30/24 11:01 Review of Systems Review of Systems: Yes all other systems are reviewed and are negative PMFSH Past Medical History Attestation statement: The following information was validated with the patient. Source: old records reviewed and nursing notes reviewed Medical History Seizures Eczema Asthma Surgical History Hx of appendectomy Social History Social History Household Members: None Housing: Homeless Do you presently have visiting nurse or other home services: No Alcohol intake: current Alcohol intake frequency: a few times a month Alcohol type: beer and hard liquor Comment: 1:1 sitter Patient Tobacco Use Status: Current everyday Tobacco user Tobacco use type: Cigarette Cigarettes Per Day: 3 Smoked in Last 30 Days: Yes Second Hand Smoke Exposure: No Use of substances other than those prescribed or required for medical reasons: Yes Substance Use Type: Marijuana Advance Directives: No Advance Directives Information Provided: Yes service: No Sexual orientation: Straight/Heterosexual Physical Exam ED Exam Exam: Appearance: Alert.? Oriented X3.? No acute distress.? Head: Normocephalic, atraumatic, no step-offs or deformities Eyes: Pupils equal, round and reactive to light.? ENT: Pharynx normal.? Neck: Normal inspection.? Neck supple.? CVS: Normal heart rate and rhythm.? Pulses normal.? Respiratory: No respiratory distress.? Breath sounds diminished bilaterally.? Abdomen: Soft and nontender.? Skin: Skin warm and dry.? Normal skin color.? Normal skin turgor.? Extremities: No lower extremity edema.? No calf ttp. 5/5 strength to bilateral upper and lower extremities Back: No midline tenderness, no C-spine tenderness, full range of motion, no CVA tenderness bilaterally Neuro: Oriented X 3.? No motor deficit.? No sensory deficit. CN 2-12 intact Vital Signs: Vital Signs - 24 hr 12/30/24 10:59 12/30/24 12:39 Temperature 97.7 F 98.1 F Pulse Rate 80 67 Respiratory Rate 18 18 Blood Pressure 112/54 L 104/64 Pulse Oximetry 96 98 Oxygen Delivery Method Room Air Room Air BMI result Body Mass Index 21.7 vss Course Course Course Narrative: This is a rapid medical exam performed by Nichelle Espinal NP: Additional HPI, ROS, PE not included below will be deferred to primary provider. Patient is a 34-year-old male with history of seizures, asthma presenting with two months of chest pain. States pain increases with deep inspiration. Denies nausea or vomiting. States he has been seen here for this before. Plan: EKG, labs, CXR Reevaluation(s) Reevaluation #1: CBC w/ low wbc count, and anemia. This seems to be around patients baseline. Chemistry with no acute electrolyte abnormalities needing intervention. Troponin negative, EKG nonischemic unlikely ACS. Time: 12:36 Reevaluation #2: Chest x-ray showing vague opacity in the left lower 3rd lung zone could represent minimal atelectasis or mild pneumonia. 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 Thymic neoplasm and lymphoma or unlikely. Will have patient follow up with PCP. Given patient's symptoms will have him follow up with PCP and will discharge him home on antibiotics for question bronchitis. Educated patient on diagnosis and treatment plan, answered all question, patient verbalizes understanding. At this time patient will be discharged home, advised to return with new or worsening symptoms. Educated on worrisome signs and symptoms and when to return. At this time I feel comfortable discharge home. Time: 14:56 Medications Administered Discontinued Medications Generic Name Dose Route Start Last Admin Trade Name Freq PRN Reason Stop Dose Admin Iohexol 100 ml 12/30/24 14:19 12/30/24 14:19 Iohexol 350 Mg/Ml 100 Ml Infus..Btl IV 12/30/24 14:20 65 ml ONCE ONE Administration Medical Decision Making Medical Decision Making [facility] Narrative: 1232 34-year-old male presents with chest pain, shortness of breath ongoing for 2 months worsening. Physical exam diminished breath sounds bilaterally. History and physical exam concerning for pneumonia versus PE. Unlikely ACS, dissection, acute respiratory distress, pneumothorax. I do not suspect pericarditis, myocarditis or endocarditis. Will rule out dysrhythmia and electrolyte abnormalities. Plan labs, imaging Differential Diagnosis Differential Diagnoses: The differential diagnosis associated with the presentation includes (History and physical exam concerning for pneumonia versus PE. Unlikely ACS, dissection, acute respiratory distress, pneumothorax. I do not suspect pericarditis, myocarditis or endocarditis. Will rule out dysrhythmia and electrolyte abnormalities.) Admission/Observation Consideration of admission/observation: Escalation of care including admission/observation considered (possibble ) Lab Data [facility] Lab Attestation statement: I reviewed the patient's lab results. 12/30/24 11:08 12/30/24 11:08 Labs: Lab Results 12/30/24 Range/Units 11:08 WBC 4.6 L (4.8-10.8) X10*3/uL RBC 4.59 L (4.60-5.80) X10*6/uL Hgb 13.5 L (14.0-18.0) g/dl Hct 38.3 L (42.0-52.0) % MCV 83.4 (80.0-98.0) fL MCH 29.4 (27.0-33.0) pg MCHC 35.2 (31.0-36.0) g/dl RDW 12.6 (11.0-16.0) % Plt Count 299 (160-400) X10*3/uL MPV 9.1 L (9.4-12.4) fL Immature Gran % (Auto) 0.2 (0.0-0.4) % Neut % (Auto) 49.3 (45-73) % Lymph % (Auto) 31.4 (20-40) % Aiken % (Auto) 11.2 H (2-11) % Eos % (Auto) 7.2 H (0-4) % Baso % (Auto) 0.7 (0-2) % Lymph # (Auto) 1.4 (1.2-4.9) X10*3/uL Aiken # (Auto) 0.5 (0.1-1.2) X10*3/uL Eos # (Auto) 0.3 (0.0-0.4) X10*3/uL Baso # (Auto) 0.0 (0.0-0.2) X10*3/uL Abs Immat Gran (auto) 0.01 (0.00-0.03) X10*3/uL Absolute Neuts (auto) 2.3 (2.0-8.3) x10*3/uL Absolute Nucleated RBC 0.000 (0.0-0.012) X10*3/uL Nucleated RBC % (auto) 0.0 (0.0-0.2) /100WBC Sodium 145 (135-145) mmol/L Potassium 3.8 (3.3-5.1) mmol/L Chloride 111 H (96-108) mmol/L Carbon Dioxide 28 (22-29) mmol/L Anion Gap 10 L (12-20) BUN 8 L (9-16) mg/dL Creatinine 0.74 (0.5-1.4) mg/dL Estim Creat Clear Calc 122.3 Estimated GFR > 60 Random Glucose 88 (60-115) mg/dL Calcium 8.5 (8.4-10.2) mg/dL Total Bilirubin 0.4 (0.0-1.0) mg/dL AST 28 (5-37) U/L ALT 32 (0-40) U/L Alkaline Phosphatase 94 (39-117) U/L Troponin I High Sens < 2.7 (<3.5-35.0) ng/L Total Protein 6.3 L (6.5-8.0) g/dL Albumin 3.8 (3.5-5.0) g/dL Independent Interpretation I performed an independent interpretation of an: EKG (Normal sinus rhythm Normal ECG When compared with ECG of 25-Dec-2024 10:22, No significant change was found ) and Plain X-Ray (XR/XR chest 2V IMPRESSION: Vague opacity in the left lower third lung zone could represent minimal atelectasis or mild pneumonia. ) External Record Review External record reviewed: Inpatient record, Office record, Outpatient record, Prior outpatient labs, Prior outpatient radiology, Primary care record and Outside ED record Chronic Conditions Patient?s care impacted by: Other (see hpi ) Critical Care Time Critical Care Time Critical Care Time: No Discharge Plan Discharge Clinical Impression: Chest pain, Shortness of breath, Bronchitis, Thymus hyperplasia Patient Disposition: Home, Self-Care Instructions: Chest Pain (ED), Shortness of Breath (ED) Additional Instructions: Take your medications as prescribed. If you were prescribed antibiotics today, it is important that you take your medication to their entirety, do not skip any doses, do not finish them early. Follow-up with your primary care provider this week. Return to the emergency department with new or worsening symptoms. Such as fevers, chills, chest pain, shortness of breath, nausea, vomiting, dizziness, headache, vision changes, lethargy In case of emergency call 911 CT/CT angio chest PE protocol IMPRESSION: No evidence of pulmonary embolus. Borderline axillary lymph nodes are likely reactive/hyperplastic in nature. Prominent soft tissue in the anterior superior mediastinum is likely related to thymus. 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 Thymic neoplasm and lymphoma are unlikely. Fleischner guidelines were followed. Prescriptions: New doxycycline hyclate 100 mg capsule 100 mg PO BID 10 Days Qty: 20 0RF No Action hydroxyzine HCl 25 mg tablet 25 mg PO TID PRN (Reason: itching) Qty: 10 0RF hydrocortisone 2.5 % cream 1 applic topical BID PRN (Reason: rash) Qty: 30 0RF albuterol sulfate 90 mcg/actuation Hfa Aerosol Inhaler INHALATION levetiracetam 500 mg Tablet 500 mg PO BID Qty: 180 0RF sertraline 25 mg tablet 25 mg PO DAILY Qty: 90 0RF levetiracetam 500 mg tablet 500 mg PO BID Qty: 180 0RF sertraline 25 mg tablet 25 mg PO DAILY Qty: 30 0RF Referrals: Physician,None [Primary Care Provider, Medical] Stand Alone Forms: Work/School Release Print Language: Tongan
[2024-12-30 11:12] LABS: MANUAL DIFF FLAG NO
[2024-12-30 11:18] LABS: Hematocrit 38.3 % (42.0-52.0); Hemoglobin 13.5 g/dl (14.0-18.0); Imm Gran Abs Auto 0.01 X10*3/uL (0.00-0.03); Imm Gran Pct Auto 0.2 % (0.0-0.4); Lymphocytes Absolute Auto 1.4 X10*3/uL (1.2-4.9); Mean Corpuscular HGB Conc 35.2 g/dl (31.0-36.0); Mean Corpuscular Hemoglobin 29.4 pg (27.0-33.0); Mean Corpuscular Volume 83.4 fL (80.0-98.0); NRBC Abs Auto 0.000 X10*3/uL (0.0-0.012); NRBC Pct Auto 0.0 /100WBC (0.0-0.2); Platelet Count 299 X10*3/uL (160-400); Red Blood Count 4.59 X10*6/uL (4.60-5.80); White Blood Count 4.6 X10*3/uL (4.8-10.8)
[2024-12-30 11:32] LABS: Alanine Aminotransferase 32 U/L (0-40); Albumin Level 3.8 g/dL (3.5-5.0); Alkaline Phosphatase 94 U/L (39-117); Anion Gap 10 (12-20); Aspartate Amino Transferase 28 U/L (5-37); Blood Urea Nitrogen 8 mg/dL (9-16); Calcium 8.5 mg/dL (8.4-10.2); Carbon Dioxide 28 mmol/L (22-29); Chloride 111 mmol/L (96-108); Creatinine Clr Calc Pharmacy 122.3; Estimated Glomerular Filt Rate > 60; Potassium 3.8 mmol/L (3.3-5.1); Sodium 145 mmol/L (135-145); Total Protein 6.3 g/dL (6.5-8.0)
[2024-12-30 11:41] LABS: Troponin-I High Sensitivity < 2.7 ng/L (<3.5-35.0)
--- OUTSIDE RECORDS SUMMARY | 2024-12-30 12:07 | XMS_ITS | Encounter Summary ---
Author Organization [facility] Address [address] [place] [address] Phone Care Team Providers Care Director Of Medical Review Name Role Phone Kenton Galaviz MD Primary Care Provider Unavailabl e Encounter Details Date Type Department Care Team (Late st Contact Info) Description 12/11/2016 Conversion Encounter [facility] - [address] [id number] Social History Tobacco Use Types Packs/Day Years [...] on filedocumented in this encounter Care Teams Director Of Medical Review Relationship Specialty Start Date End Date Kenton Galaviz MD PCP - General 12/05/16 documented as of this encounter
--- OUTSIDE RECORDS SUMMARY | 2024-12-30 12:07 | XMS_ITS | Clinical Summary ---
Author Organization [facility] Address [address] [place] [address] Phone Care Team Providers Care Cotton Weigher Operator Name Role Phone Kenton Galaviz MD [...] Vaccines (1 - 3-dose SCDM series) 2018 Influenza Vaccines (#1) 2024 02/06/20, 04/02/2006, 04/10/2004, Additional history exists COVID-19 Vaccine ( season) 2024 HIB Vaccines Completed 08/24/1992, 02/27, 1991, Additional [...] age to complete this topic Care Teams Cotton Weigher Operator Relationship Specialty Start Date End Date Kenton Galaviz MD PCP - General 12/05/16
--- OUTSIDE RECORDS SUMMARY | 2024-12-30 12:07 | XMS_ITS | Encounter Summary ---
Author Organization [facility] Address [address] [place] [id number] Phone Care Team Providers Care Manga Artist Name Role Phone Kenton Galaviz MD Primary Care Provider Unavailabl e Encounter Details Date Type Department Care Team (Late st Contact Info) Description 10/19/2009 Documentation [facility] [address] [place] [address] Family Medicine, Physician [address] [place], [place] [phone] Social History Tobacco Use Types Packs/Day Years [...] on filedocumented in this encounter Care Teams Manga Artist Relationship Specialty Start Date End Date Kenton Galaviz MD PCP - General 12/05/16 documented as of this encounter
--- OUTSIDE RECORDS SUMMARY | 2024-12-30 12:07 | XMS_ITS | Encounter Summary ---
Author Organization [facility] Address [address] [place] [phone] Phone Care Team Providers Care Sales Compensation Analyst Name Role Phone Kentno Galaviz MD Primary Care Provider Unavailabl e Encounter Details Date Type Department Care Team (Late st Contact Info) Description 11/21/2010 Documentation [facility] [place] [address] [place] [address] Family Medicine, Physician [address] [place], [place] [phone] Social History Tobacco Use Types Packs/Day Years [...] on filedocumented in this encounter Care Teams Sales Compensation Analyst Relationship Specialty Start Date End Date Kenton Galaviz MD PCP - General 12/05/16 documented as of this encounter
--- OUTSIDE RECORDS SUMMARY | 2024-12-30 12:07 | XMS_ITS | Encounter Summary ---
Author Organization [facility] Address [address] [place] [address] Phone Care Team Providers Care Return Clerk Name Role Phone Kenton Galaviz MD Primary Care Provider Unavailabl e Encounter Details Date Type Department Care Team (Late st Contact Info) Description 07/26/2009 Documentation [facility] [address] [place] [address] Family Medicine, Physician [address] [place], [place] [phone] Social History Tobacco Use Types Packs/Day Years [...] on filedocumented in this encounter Care Teams Return Clerk Relationship Specialty Start Date End Date Kenton Galaviz MD PCP - General 12/05/16 documented as of this encounter
[2024-12-30 12:39] VITALS: BP 104/64; PULSE 67; RESP 18; TEMP 36.7; O2SAT 98
[2024-12-30] MEDS: iohexoL 350 MG/ML 100 ML INFUS..BTL IV (14:19)
[2024-12-30 15:59] VITALS: BP 104/64; PULSE 67; RESP 18; TEMP 36.7; O2SAT 98
== END 2024-12-30 16:00 | disposition home or self-care (01) ==
PROVIDERS: Registered Nurse Emergency; Emergency Provider Emergency Medicine
DX: R07.9 Chest pain, unspecified (principal); J40 Bronchitis, not specified as acute or chronic; E32.0 Persistent hyperplasia of thymus; R06.02 Shortness of breath; Z72.0 Tobacco use; Z79.899 Other long term (current) drug therapy
CPT/HCPCS: 36415; 71046; 71275; 80053; 84484; 85025; 93005; 99285; Q9967

== ENCOUNTER → 2024-12-30 10:54 | Outpatient (BNV) | payer OTHER, SELFPAY | PROVIDERS: Emergency Provider Emergency Medicine; Visit Provider Internal Medicine Cardiovascular Disease | DX: R07.9 Chest pain, unspecified (principal) | CPT/HCPCS: 93010 ==

== ENCOUNTER → 2024-12-30 11:02 | Outpatient (BNV) | payer OTHER, SELFPAY | PROVIDERS: Visit Provider Radiology Diagnostic Radiology | DX: R06.02 Shortness of breath (principal); R07.9 Chest pain, unspecified; J98.4 Other disorders of lung | CPT/HCPCS: 71046; 71275 ==

== ENCOUNTER 2025-01-03 15:21 | Inpatient (IN) | payer OTHER, SELFPAY ==
--- OUTSIDE RECORDS SUMMARY | 2005-05-13 12:42 | XMS_ITS | Continuity of Care Document ---
Author Organization [facility] Address [address] [place] [address] Phone Care Team Providers Care Mirror Specialist Name Role Phone Macario Biggs MD Unavailable Unavailable Advance Directives Directive Yes / No Effective Date File Name No Information Encounters Encounter Description Practice Location Reason(s) For Visit Diagnoses Date Provider Providers Copied on Encounter [facility], [address] [place], [place], [id number], tel:[phone] [facility] Office 93 No Information Dian Sorto. [address], [address], [place], [place], [facility], . tel:[phone] Family History Family Member Type Diagnosis Age At Onset No Information Payers Payer name Insurance type Covered libertarian ID Authoriza tion(s) No Information Social History [...]
--- NOTE | 2025-01-03 15:42 | ECG_ITS ---
Test Reason : overdose Blood Pressure : */* mmHG Vent. Rate : 71 BPM Atrial Rate : 71 BPM P-R Int : 154 ms QRS Dur : 84 ms QT Int : 388 ms P-R-T Axes : 46 22 24 degrees QTcB Int : 421 ms Normal sinus rhythm Normal ECG When compared with ECG of 30-Dec-2024 10:58, No significant change was found Referred By: Desirae López Electronically Signed By: NICKIE KRAUS MD
[2025-01-03 15:52] VITALS: BP 101/49; BP 107/63; PULSE 80; RESP 18; TEMP 36.3; O2SAT 97; O2SAT 98; BMI 22.6
--- NOTE | 2025-01-03 16:05 | ED.OVERDOSE ---
HPI - Overdose General Chief Complaint: Overdose Stated Complaint: Overdose, SI Time Seen by Provider: 01/03/25 15:53 History of Present Illness ED Provider: estee HPI Narrative: 34 M undomiciled self reports intentional self-harm ingestion street pills thinks it was benzo. Tells me he found 8-10 pills in his jeans while doing laundry. complaint: intentional overdose Related Data Previous Rx's ?Medication ?Instructions ?Recorded sertraline 25 mg tablet 25 mg PO DAILY #90 tabs 12/22/24 levetiracetam 500 mg tablet 500 mg PO BID #180 tabs 12/25/24 Allergies Allergy/AdvReac Type Severity Reaction Status Date / Time apple (APPLE) Allergy Unknown ANAPHYLAXIS Verified 01/03/25 15:54 pollen extracts (POLLEN) Allergy Unknown SNEEZING Verified 01/03/25 15:54 PMFSH Past Medical History Medical History Seizures Eczema Asthma Surgical History Hx of appendectomy Social History Social History Household Members: None Housing: Homeless Do you presently have visiting nurse or other home services: No Alcohol intake: current Alcohol intake frequency: a few times a month Alcohol type: beer and hard liquor Comment: 1:1 sitter Patient Tobacco Use Status: Current everyday Tobacco user Tobacco use type: Cigarette Cigarettes Per Day: 3 Smoked in Last 30 Days: No Second Hand Smoke Exposure: No Use of substances other than those prescribed or required for medical reasons: Yes Substance Use Type: Crack/Cocaine Advance Directives: No Advance Directives Information Provided: No service: No Sexual orientation: Straight/Heterosexual Physical Exam Exam: Exam: EXAM: Gen: Alert, awake, well appearing, well hydrated. Head: Atraumatic Eyes: Anicteric, Normal conjunctiva. ENT: Moist mucosa, no pallor. ? Neck: Supple. Skin: ?No observable rash or bruising on exposed or examined skin Respiratory: Breathing comfortably, No distress.Clear to auscultation bilaterally, symmetric chest expansion, No wheeze, rales, ronchi. Cardiovascular: Regular rate and rhythm. No murmurs or rub. Well perfused periphery, warm extremities. No edema. ? Abdominal: No focal tenderness. Soft, no objective distension. No palpable masses or obvious organomegaly. ?No guarding, no rebound tenderness or other peritoneal findings. : No flank tenderness. Neuro: Alert. Gross movement of all extremities intact. ?No focal deficits. Cranial nerve 2-12 grossly intact. Pupils 4 mm symmetric and reactive no nystagmus Psych: Calm. Cooperative. Inappropriate laughing. Not psychotic or aggressive. Vague about answering suicidal or homicidal questioned and MSK: No grossly visible deformity. Vital signs: See flowsheet Vital Signs: Vital Signs: Last Vital Signs Temp 97.9 F 01/04/25 06:18 Pulse 58 01/04/25 06:18 Resp 20 01/04/25 06:18 BP 111/69 01/04/25 06:18 Pulse Ox 99 01/04/25 06:18 O2 Del Method Room Air 01/04/25 06:18 BMI result Body Mass Index 22.6 Course Reevaluation(s) Reevaluation #1: Time: 06:19 Date: 01/04/25 Provider: Naveen De Dios MD Patient in physician observation for psychiatric evaluation.? No acute events reported overnight. No current complaints. VS stable.? Patient is in bed search status/pending CARE team evaluation. Will continue to monitor. Reevaluation #2: Seen by crisis the patient is inpatient level of care at this time we will end of the ED observation Time: 13:55 Medications Administered Generic Name Dose Route Start Last Admin Trade Name Freq PRN Reason Stop Dose Admin Levetiracetam 500 mg 01/04/25 09:00 01/04/25 09:50 Levetiracetam 500 Mg Tablet PO 500 mg BID GALE Administration Sertraline HCl 25 mg 01/04/25 09:00 01/04/25 09:50 Sertraline Hcl 25 Mg Tablet PO 25 mg DAILY GALE Administration Discontinued Medications Generic Name Dose Route Start Last Admin Trade Name Freq PRN Reason Stop Dose Admin Lorazepam 2 mg 01/03/25 21:33 01/03/25 21:40 Lorazepam 1 Mg Tablet PO 01/03/25 21:34 2 mg ONCE ONE Administration Olanzapine 5 mg 01/03/25 21:33 01/03/25 21:40 Olanzapine 5 Mg Tablet PO 01/03/25 21:34 5 mg ONCE ONE Administration Medical Decision Making Medical Decision Making MDM Narrative: Medical Decision Makin-year-old male with self-reported purposeful overdose on counter for tablets bought on the street he thinks maybe they were benzodiazepine. Intermittently reporting to staff suicidal thoughts and hopelessness. Care team evaluated the patient feels that he does have some risk given the history they have taken and meets criteria for inpatient level care section 12 sign for self-harm/SI. Regarding the possibility of toxic logic overdose. The patient has been in the ED several hours without significant respiratory or mentation depression. Pupils or normal and reactive, he does not have any signs of injury respiratory suppression. I think the patient is medically cleared. Preliminary Favored Differential Diagnosis: Overdose, intentional overdose, suicidal ideation, homelessness, among additional considered etiologies Testing Interpreted Independently: ?Sinus rhythm rate 71 QTC 421 no ischemic changes normal intervals and axis Radiology or Lab testing Results Reviewed: ?See below for details Consults: ?See below for details Independent Historians/External Chart Reviews: ?See below for details Social Determinants of Health Impacting MDM/Planning: ?See below for details Consult Healthcare Provider Management of the patient was discussed with: Behavioral Health Provider Lab Data MDM Lab Attestation statement: I reviewed the patient's lab results. 01/03/25 16:41 01/03/25 16:41 Labs: Lab Results 01/03/25 01/03/25 01/03/25 Range/Units 16:41 16:47 20:16 WBC 4.8 (4.8-10.8) X10*3/uL RBC 4.83 (4.60-5.80) X10*6/uL Hgb 14.4 (14.0-18.0) g/dl Hct 41.3 L (42.0-52.0) % MCV 85.5 (80.0-98.0) fL MCH 29.8 (27.0-33.0) pg MCHC 34.9 (31.0-36.0) g/dl RDW 13.0 (11.0-16.0) % Plt Count 261 (160-400) X10*3/uL MPV 9.6 (9.4-12.4) fL Immature Gran % (Auto) 0.2 (0.0-0.4) % Neut % (Auto) 44.5 L (45-73) % Lymph % (Auto) 33.5 (20-40) % [place] % (Auto) 10.6 (2-11) % Eos % (Auto) 10.8 H (0-4) % Baso % (Auto) 0.4 (0-2) % Lymph # (Auto) 1.6 (1.2-4.9) X10*3/uL [place] # (Auto) 0.5 (0.1-1.2) X10*3/uL Eos # (Auto) 0.5 H (0.0-0.4) X10*3/uL Baso # (Auto) 0.0 (0.0-0.2) X10*3/uL Abs Immat Gran (auto) 0.01 (0.00-0.03) X10*3/uL Absolute Neuts (auto) 2.1 (2.0-8.3) x10*3/uL Absolute Nucleated RBC 0.000 (0.0-0.012) X10*3/uL Nucleated RBC % (auto) 0.0 (0.0-0.2) /100WBC VBG pH 7.45 H (7.32-7.43) VBG pCO2 37 mmHg VBG pO2 83 mmHg VBG HCO3 26 (22-26) mmol/L VBG O2 Saturation 97.0 % VBG Base Excess 2.7 mmol/L Sodium 144 (135-145) mmol/L Potassium 3.8 (3.3-5.1) mmol/L Chloride 109 H (96-108) mmol/L Carbon Dioxide 26 (22-29) mmol/L Anion Gap 13 (12-20) BUN 11 (9-16) mg/dL Creatinine 0.66 (0.5-1.4) mg/dL Estim Creat Clear Calc 142.9 Estimated GFR > 60 Random Glucose 78 (60-115) mg/dL Calcium 9.2 D (8.4-10.2) mg/dL Magnesium 1.9 (1.6-2.6) mg/dL Total Bilirubin 0.6 (0.0-1.0) mg/dL Direct Bilirubin 0.2 (0.0-0.5) mg/dL AST 46 H (5-37) U/L ALT 55 H (0-40) U/L Alkaline Phosphatase 104 (39-117) U/L Total Protein 6.5 (6.5-8.0) g/dL Albumin 4.2 (3.5-5.0) g/dL Urine Color Yellow Urine Appearance Clear Urine pH 6.0 (5.0-9.0) Ur Specific [place] 1.020 (1.005-1.025) Urine Protein Negative (Neg-Trace) mg/dL Urine Glucose (UA) Negative (Negative) mg/dL Urine Ketones Negative (Negative) mg/dL Urine Blood Negative (Negative) Urine Nitrite Negative (Negative) Ur Leukocyte Esterase Negative (Negative) Salicylates < 5.0 L (15-30) mg/dL Urine Opiates Screen Not Detected (Not Detect) Ur Buprenorphine Scrn Not Detected (Not Detect) ng/mL Ur Oxycodone Screen Not Detected (Not Detect) ng/mL Urine Methadone Screen Not Detected (Not Detect) ng/mL Urine Fentanyl Screen Not Detected (Not Detect) Acetaminophen < 3 (<30) mcg/mL Ur Barbiturates Screen Not Detected (Not Detect) Ur Phencyclidine Scrn Not Detected (Not Detect) Ur Amphetamines Screen Not Detected (Not Detect) U Benzodiazepines Scrn Not Detected (Not Detect) Urine Cocaine Screen Not Detected (Not Detect) U Marijuana (THC) Screen POSITIVE H (Not Detect) Ethyl Alcohol < 10 mg/dL Chronic Conditions Patient?s care impacted by: Other (Cocaine and other substance use disorder) Social Determinants Patient?s care significantly limited by Social Determinants of Health including: Inadequate housing, Low income and Unemployment Discharge Plan Discharge Clinical Impression: Drug overdose Patient Disposition: Admitted As Inpatient
[2025-01-03 16:46] LABS: MANUAL DIFF FLAG NO
--- NOTE | 2025-01-03 16:48 | PC.NURSE ---
Pt is more alert than at arrival. was cooperative with changeover operator in [place]. now denies SI b/c he has a 9 year old daughter. Pt states he first took pills at 9am (#4) then another few an hour later. Nothing since. Details on overdose have changed mult times.
[2025-01-03 16:50] LABS: VBG HCO3 26 mmol/L (22-26); VBG O2 % Saturation 97.0 %
[2025-01-03 16:50] LABS: Hematocrit 41.3 % (42.0-52.0); Hemoglobin 14.4 g/dl (14.0-18.0); Imm Gran Abs Auto 0.01 X10*3/uL (0.00-0.03); Imm Gran Pct Auto 0.2 % (0.0-0.4); Lymphocytes Absolute Auto 1.6 X10*3/uL (1.2-4.9); Mean Corpuscular HGB Conc 34.9 g/dl (31.0-36.0); Mean Corpuscular Hemoglobin 29.8 pg (27.0-33.0); Mean Corpuscular Volume 85.5 fL (80.0-98.0); NRBC Abs Auto 0.000 X10*3/uL (0.0-0.012); NRBC Pct Auto 0.0 /100WBC (0.0-0.2); Platelet Count 261 X10*3/uL (160-400); Red Blood Count 4.83 X10*6/uL (4.60-5.80); White Blood Count 4.8 X10*3/uL (4.8-10.8)
[2025-01-03 16:52] LABS: Venous Blood Gas Refer to POC result
[2025-01-03 17:06] LABS: Acetaminophen LAB < 3 mcg/mL (<30); Salicylate < 5.0 mg/dL (15-30)
[2025-01-03 17:17] LABS: Alanine Aminotransferase 55 U/L (0-40); Albumin Level 4.2 g/dL (3.5-5.0); Alkaline Phosphatase 104 U/L (39-117); Anion Gap 13 (12-20); Aspartate Amino Transferase 46 U/L (5-37); Blood Urea Nitrogen 11 mg/dL (9-16); Calcium 9.2 mg/dL (8.4-10.2); Carbon Dioxide 26 mmol/L (22-29); Chloride 109 mmol/L (96-108); Creatinine Clr Calc Pharmacy 142.9; Estimated Glomerular Filt Rate > 60; Magnesium 1.9 mg/dL (1.6-2.6); Potassium 3.8 mmol/L (3.3-5.1); Sodium 144 mmol/L (135-145); Total Protein 6.5 g/dL (6.5-8.0)
--- OUTSIDE RECORDS SUMMARY | 2025-01-03 18:11 | XMS_ITS | Encounter Summary ---
Author Organization [facility] Address [address] [place] [address] Phone Care Team Providers Care Research Management Associate Name Role Phone Kenton Galaviz MD Primary Care Provider Unavailabl e Encounter Details Date Type Department Care Team (Late st Contact Info) Description 12/11/2016 Conversion Encounter [facility] - [address] [address] Social History Tobacco Use Types Packs/Day Years [...] on filedocumented in this encounter Care Teams Research Management Associate Relationship Specialty Start Date End Date Kenton Galaviz MD PCP - General 12/05/16 documented as of this encounter
--- OUTSIDE RECORDS SUMMARY | 2025-01-03 18:11 | XMS_ITS | Clinical Summary ---
Author Organization [facility] Address [address] [place] [id number] Phone Care Team Providers Care Lead Javascript Developer Name Role Phone Kenton Galaviz MD Primary [...] age to complete this topic Care Teams Lead Javascript Developer Relationship Specialty Start Date End Date Kenton Galaviz MD PCP - General 12/05/16
--- OUTSIDE RECORDS SUMMARY | 2025-01-03 18:11 | XMS_ITS | Encounter Summary ---
Author Organization [facility] Address [address] [place] [id number] Phone Care Team Providers Care Pin Game Machine Inspector Name Role Phone Kenton Galaviz MD Primary Care Provider Unavailabl e Encounter Details Date Type Department Care Team (Late st Contact Info) Description 10/19/2009 Documentation [facility] [place] Family Medicine [address] [place] [address] Family Medicine, Physician [address] [place], [place] [id number] Social History Tobacco Use Types Packs/Day Years [...] on filedocumented in this encounter Care Teams Pin Game Machine Inspector Relationship Specialty Start Date End Date Kenton Galaviz MD PCP - General 12/05/16 documented as of this encounter
--- OUTSIDE RECORDS SUMMARY | 2025-01-03 18:11 | XMS_ITS | Encounter Summary ---
Author Organization [facility] Address [address] [place] [phone] Phone Care Team Providers Care Planning Assistant Name Role Phone Ketnon Galaviz MD Primary Care Provider Unavailabl e Encounter Details Date Type Department Care Team (Late st Contact Info) Description 11/21/2010 Documentation [facility] [place] Family Medicine [address] [place] [address] Family Medicine, Physician [address] [place], [place] [phone] Social History Tobacco Use Types Packs/Day Years [...] on filedocumented in this encounter Care Teams Planning Assistant Relationship Specialty Start Date End Date Kenton Galaviz MD PCP - General 12/05/16 documented as of this encounter
--- OUTSIDE RECORDS SUMMARY | 2025-01-03 18:11 | XMS_ITS | Encounter Summary ---
Author Organization [facility] Address [address] [place] [address] Phone Care Team Providers Care Drapery Hemmer Automatic Name Role Phone Kenton Galaviz MD Primary Care Provider Unavailabl e Encounter Details Date Type Department Care Team (Late st Contact Info) Description 07/26/2009 Documentation [facility] [address] [place] [address] Family Medicine, Physician [address] [place], [place] [phone] Social History Tobacco Use Types Packs/Day Years [...] on filedocumented in this encounter Care Teams Drapery Hemmer Automatic Relationship Specialty Start Date End Date Kenton Galaviz MD PCP - General 12/05/16 documented as of this encounter
--- NOTE | 2025-01-03 18:30 | PC.NURSE ---
remains arousable to voice. sleeping on and off. no resp depression. skin pwd. sitter at bedside still.
[2025-01-03 19:07] VITALS: BP 102/65; PULSE 58; RESP 20; TEMP 36.4; O2SAT 97
[2025-01-03 20:33] LABS: Cannabinoid Screen Urine POSITIVE (Not Detect)
--- NOTE | 2025-01-03 21:35 | PC.NURSE ---
Dr. Mario informed of patient presenting with restlessness and agitation upon arrival to behavioral pod. Patient offered PO Zyprexa and Lorazepam. Patient accepted PO medication and was mediated with Zyprexa 5 mg PO and Lorazepam 2 mg PO. Patient provided with a warm blanket, no further behavioral issues noted. Patient currently resting in bed, not in acute distress.
--- NOTE | 2025-01-03 22:05 | PC.NURSE ---
Medication reconciliation has been completed with patient at bedside patient, patient was able to confirm all of his home medications.
--- NOTE | 2025-01-04 05:09 | PC.NURSE ---
Patient continues to c/o tremors, restlessness, anxiety, and mild nausea, no vomiting. CIWA score [address] 04:[address] Yun notified. Plan for patient to be transferred to main ED for ETOH withdrawal monitoring/initiation of phenobarb protocol.
[2025-01-04 06:18] VITALS: BP 111/69; PULSE 58; RESP 20; TEMP 36.6; O2SAT 99
--- NOTE | 2025-01-04 07:32 | PC.NURSE ---
Assumed care of this pt. Pt sleeping at this time, resp even and nonlaboured.
[2025-01-04 08:15] LABS: Appearance Urine Clear; Glucose Urine UA Negative (Negative); PH 6.0 (5.0-9.0); Specific Gravity - Urine 1.020 (1.005-1.025)
--- NOTE | 2025-01-04 12:38 | PHA.MEDREC ---
Addendum entered by Treva Nam RPh 01/04/25 14:18: MED REC REVIEWED BY [facility] Original Note: Pharmacy Consult ? Medication Reconciliation Pharmacy reviewed med rec done by nursing. Pt confirmed he takes Hydroxyzine 25mg 1 TID as needed for itching and a Psoriasis cream (Cortisone of some sort) as needed and getting these filled at [facility]; I called [facility] and they confirmed the pt got scripts sent to them in September 2023 for Hydrocortosone 2.5% cream and Hydroxyzine 25mg tabs that the pt never picked up. I took those off the med rec since pt has no recent claims anywhere else.
[2025-01-04 14:57] VITALS: BP 103/67; PULSE 59; TEMP 36.5; O2SAT 99
[2025-01-04 14:58] VITALS: BMI 20.7
--- NOTE | 2025-01-04 16:32 | PC.ADMIT ---
Mr. Artur Yepez, a 34 y.o. male known to , was admitted to from the pod at 2:35pm with a diagnosis of Suicidal Ideation. By history he also suffers from depression, anxiety and substance abuse. He maintains that he is homeless. He signed a CV immediately upon arrival to the unit. Skin/ safety check completed and was unremarkable except for psoriatic areas on his chest, legs bilaterally, antecubital areas and forearms bilaterally. He was cooperative with the admission process. Per the nurse to nurse in the pod, Artur was admitted last evening intially reporting that he intentionally overdosed on klonopin which he bought on the street. He fluctuated between endorsing suicidality and denying suicidality throughout his time in the pod. Once he arrived on the unit, he denied suicidality and said, I love pills. I took the pills to get high. My last admission was after a suicide attempt. But I am really anxious. He also denied HI and A-V hallucinations. Artur said he did not follow up with his aftercare appointments and did not take any meds when he discharged the last time. He said he has a call in to [address] to request a PCP and is waiting for a callback with the name of one. Medically, Artur has psoriasis (as identified above), asthma and seizures. He also has dyslexia of which he is embarrassed and does not publicize, but consequently he needs help completing his menus and anything else he needs to sign. Artur said he was drinking approximately every other day up to 5 or 6 drinks per use, but has not drank any alcohol since his seizure which he had last admission. He said he smokes pot daily up to 3 or 4 joints a day for many years and his last use was just prior to arrival. He said his drug of choice is, Pills. I buy them from my friend and I buy them on the street. When asked what kind he said, klonopin, percocet, adderall, anything , and said his last use was just prior to arrival, between 6-20 pills that he believed to be klonopin. He said he ingests pills, Whenever I can get them. His tox screen was positive for marijuana only. Artur said he smokes cigarettes occasionally and a pack can last him up to a month. He would like nicorette for NRT. He declined [employer] and addiction services. He also refused the influenza vaccine and did not give a reason. Artur signed a HAKEEM for his father (Braydon Yepez) but he did not know his phone number. He did not sign any others as he does not yet have an assigned PCP and he could not remember the names of the therapist and prescriber that he was referred to after his last admission. He has Dibspace. Allergies include apples (anaphylactic) and pollen (hayfever-like symptoms). He was admitted to [facility] and placed on safety checks q 15 minutes.
[2025-01-04 20:00] VITALS: BP 107/60; PULSE 70; RESP 16; TEMP 36.6; O2SAT 98
[2025-01-05 08:00] VITALS: BP 94/62; PULSE 75; TEMP 36.5; O2SAT 99
[2025-01-05 08:38] LABS: Hemoglobin A1C 121.0632 umol/L; Total Hemoglobin (HGBA1C) 4138.7019 umol/L
[2025-01-05 08:40] LABS: Alanine Aminotransferase 60 U/L (0-40); Albumin Level 4.3 g/dL (3.5-5.0); Alkaline Phosphatase 109 U/L (39-117); Anion Gap 15 (12-20); Aspartate Amino Transferase 49 U/L (5-37); Blood Urea Nitrogen 13 mg/dL (9-16); Calcium 9.6 mg/dL (8.4-10.2); Carbon Dioxide 23 mmol/L (22-29); Chloride 107 mmol/L (96-108); Cholesterol 144 mg/dL (<200); Creatinine Clr Calc Pharmacy 121.8; Estimated Glomerular Filt Rate > 60; HDL Cholesterol 29 mg/dL (>40); Potassium 4.5 mmol/L (3.3-5.1); Sodium 140 mmol/L (135-145); Total Protein 7.2 g/dL (6.5-8.0); Triglycerides 125 mg/dL (<150)
--- NOTE | 2025-01-05 09:04 | HO.PSYADMNOT ---
HPI Date of Service: 01/05/25 Chief Complaint: SI Sources of Information: patient interviewed, chart reviewed and crisis/core team assessment reviewed HPI Subjective Notes: Khan Warning, Conditional Voluntary and 3 Day Narrative: Patient seen on 01/04/25 and again on 01/05 Pt is a 34 yo male with hx of anxiety and substance abuse (pills), Psoriasis, Seizure disorder on Keppra, who presents for overdose what he thought was clonazepam, but he's not sure exactly (utox cannabis only). In ED he vaguely endorsed but now says he took pills just to get high... Says he just said SI to get admitted but that he is anxious and needs help; says he is addicted to pills and buys percs, adderall, klonopin.. He laments i keep getting fired because of the pills...if I'm stressed at work, i take a bunch of pills and then go back to work but then fall asleep. Also says my mom 2 years ago and i'm still traumatized by that... Says he has moments of depression but they are short lived. Denies any alcohol use. Past Psychiatric History: Denies history of inpatient psychiatric hospitalizations. denies history of detox admissions. States he had a psychiatrist when he was 14 years old but can not recall medications that were prescribed; states he has not had any psychiatric tx since the age of 14. Medical Evaluation Reviewed: Yes FORMERLY [facility] Medical History (Updated 01/06/25 @ 08:05 by Artur Romero MD) Homeless Drug addiction Anxiety Seizures Eczema Asthma Surgical History Hx of appendectomy Family History: Mother: Alzheimer's Social History: homeless; Single. One 9 y/o daughter and a 3 y/o son who both live with their biological mothers. Highest level of education completed, 8th grade. Unemployed. Substance History: pills buys and uses a variety of pills on the street, not sure what they are Trauma History: denies Diagnostics Vital Signs (24Hr): Vital Signs - 24 hr 01/04/25 14:57 01/04/25 20:00 Temperature 97.7 F 97.8 F Pulse Rate 59 70 Respiratory Rate 16 Blood Pressure 103/67 107/60 Pulse Oximetry 99 98 Oxygen Delivery Method Room Air Room Air BMI result Body Mass Index 20.7 Labs 01/03/25 16:41 01/05/25 08:04 Labs: Laboratory Results - last 48 hr 01/03/25 01/03/25 01/03/25 16:41 16:47 20:16 WBC 4.8 RBC 4.83 Hgb 14.4 Hct 41.3 L MCV 85.5 MCH 29.8 MCHC 34.9 RDW 13.0 Plt Count 261 MPV 9.6 Immature Gran % (Auto) 0.2 Neut % (Auto) 44.5 L Lymph % (Auto) 33.5 [place] % (Auto) 10.6 Eos % (Auto) 10.8 H Baso % (Auto) 0.4 Lymph # (Auto) 1.6 [place] # (Auto) 0.5 Eos # (Auto) 0.5 H Baso # (Auto) 0.0 Abs Immat Gran (auto) 0.01 Absolute Neuts (auto) 2.1 Absolute Nucleated RBC 0.000 Nucleated RBC % (auto) 0.0 VBG pH 7.45 H VBG pCO2 37 VBG pO2 83 VBG HCO3 26 VBG O2 Saturation 97.0 VBG Base Excess 2.7 Sodium 144 Potassium 3.8 Chloride 109 H Carbon Dioxide 26 Anion Gap 13 BUN 11 Creatinine 0.66 Estim Creat Clear Calc 142.9 Estimated GFR > 60 Random Glucose 78 Estimat Average Glucose Hemoglobin A1c % Calcium 9.2 D Magnesium 1.9 Total Bilirubin 0.6 Direct Bilirubin 0.2 AST 46 H ALT 55 H Alkaline Phosphatase 104 Total Protein 6.5 Albumin 4.2 Triglycerides Cholesterol LDL Cholesterol, Calc HDL Cholesterol Urine Color Yellow Urine Appearance Clear Urine pH 6.0 Ur Specific [place] 1.020 Urine Protein Negative Urine Glucose (UA) Negative Urine Ketones Negative Urine Blood Negative Urine Nitrite Negative Ur Leukocyte Esterase Negative Salicylates < 5.0 L Urine Opiates Screen Not Detected Ur Buprenorphine Scrn Not Detected Ur Oxycodone Screen Not Detected Urine Methadone Screen Not Detected Urine Fentanyl Screen Not Detected Acetaminophen < 3 Ur Barbiturates Screen Not Detected Ur Phencyclidine Scrn Not Detected Ur Amphetamines Screen Not Detected U Benzodiazepines Scrn Not Detected Urine Cocaine Screen Not Detected U Marijuana (THC) Screen POSITIVE H Ethyl Alcohol < 10 01/05/25 08:04 WBC RBC Hgb Hct MCV MCH MCHC RDW Plt Count MPV Immature Gran % (Auto) Neut % (Auto) Lymph % (Auto) [place] % (Auto) Eos % (Auto) Baso % (Auto) Lymph # (Auto) [place] # (Auto) Eos # (Auto) Baso # (Auto) Abs Immat Gran (auto) Absolute Neuts (auto) Absolute Nucleated RBC Nucleated RBC % (auto) VBG pH VBG pCO2 VBG pO2 VBG HCO3 VBG O2 Saturation VBG Base Excess Sodium 140 Potassium 4.5 Chloride 107 Carbon Dioxide 23 Anion Gap 15 BUN 13 Creatinine 0.71 Estim Creat Clear Calc 121.8 Estimated GFR > 60 Random Glucose 98 Estimat Average Glucose 91 Hemoglobin A1c % 4.8 Calcium 9.6 Magnesium Total Bilirubin 0.7 Direct Bilirubin AST 49 H ALT 60 H Alkaline Phosphatase 109 Total Protein 7.2 Albumin 4.3 Triglycerides 125 Cholesterol 144 LDL Cholesterol, Calc 90 HDL Cholesterol 29 L Urine Color Urine Appearance Urine pH Ur Specific [place] Urine Protein Urine Glucose (UA) Urine Ketones Urine Blood Urine Nitrite Ur Leukocyte Esterase Salicylates Urine Opiates Screen Ur Buprenorphine Scrn Ur Oxycodone Screen Urine Methadone Screen Urine Fentanyl Screen Acetaminophen Ur Barbiturates Screen Ur Phencyclidine Scrn Ur Amphetamines Screen U Benzodiazepines Scrn Urine Cocaine Screen U Marijuana (THC) Screen Ethyl Alcohol Meds/Allergies Meds Home Medications ?Medication ?Instructions ?Recorded ?Confirmed ?Type doxycycline hyclate 100 mg capsule 100 mg PO BID 01/05/25 01/05/25 History Allergies Allergies Allergy/AdvReac Type Severity Reaction Status Date / Time apple (APPLE) Allergy Unknown ANAPHYLAXIS Verified 01/03/25 15:54 pollen extracts (POLLEN) Allergy Unknown SNEEZING Verified 01/03/25 15:54 Mental Status Exam Mental Status Exam Narrative: Pt is alert and oriented; behavior is cooperative, anxious; patient is not in distress; dressed in casual attire with unkempt hair but adequate hygiene; mood is described as anxious and affect congruent; eye contact appropriate; Speech is normal rate, volume and prosody and not pressured; no psychomotor agitation/retardation present; thought process is organized and goal directed; Thought content is on tx; otherwise pertinent to relevant topics and without any delusional content, paranoid ideations or grandiosity; denies any SI/HI. Denies AVH and there is no evidence of perceptual disturbance. Patients insight and judgment appear intact. Assessment & Plan Assessment & Plan (1) Anxiety: Status: Acute Code(s): F41.9 - Anxiety disorder, unspecified (2) Seizure disorder: Status: Acute Code(s): G40.909 - Epilepsy, unspecified, not intractable, without status epilepticus (3) Drug addiction: Status: Acute Code(s): F19.20 - Other psychoactive substance dependence, uncomplicated (4) Homeless: Status: Acute Code(s): Z59.00 - Homelessness unspecified Plan Pt is a 34 yo male with hx of anxiety and substance abuse (pills), Psoriasis, Seizure disorder on Keppra, who presents for overdose what he thought was clonazepam, but he's not sure exactly (utox cannabis only). In ED he vaguely endorsed but now says he took pills just to get high... Says he just said SI to get admitted but that he is anxious and needs help; says he is addicted to pills and buys percs, adderall, klonopin.. He laments i keep getting fired because of the pills...if I'm stressed at work, i take a bunch of pills and then go back to work but then fall asleep. Also says my mom 2 years ago and i'm still traumatized by that... Says he has moments of depression but they are short lived. Denies any alcohol use. Formulation/Clinical reasoning: pt endorses much anxiety that impedes function and for which he has few coping skills. Seems to deny depressive episodes. No SI and said just to gain admission; but pt can benefit from admission Last admission had Seizure, now on Keppra Had started patient on Zoloft...this might be helpful for anxiety-it is low risk for lowering seizure threshold, but since his symptoms are more anxiety than depression, will try Intuniv first Plan: cv q15 Start Intuniv 1mg daily for anxiety and impulsivity Consider restarting Zoloft CCC consult placed CONTINUE Doxy 100mg BID for 6 more days; pt recently started [place] in [facility] [place] and finished 4 days of 10 day course (discussed w/ patient) *pt can get verbal abusive to staff: Low threshold for administrative discharge... Patient educated on: diagnosis, medication risk/benefits, substance abuse, therapeutic strategies and medical condition Informed Consent: understands Reason for continued inpatient stay Substantial Risk for: stable for discharge, rapid decompensation and med/psych decompensation Statement Statement: I have reviewed the history and physical and performed a pertinent examination on my patient. No changes have occurred unless specified. If the History and Physical was not performed prior to admission, the Hospitalist's service will be consulted for completing the admission physical. Time Spent With Patient Time: Total time managing care of this patient today ____ minutes.
[2025-01-05] MEDS: Triamcinolone Acet 0.1 % Oint 15 GM TUBE 1 APPL TOPICAL ×3 (12:19→20:43)
[2025-01-05] MEDS: guanFACINE HCl ER 1 MG TAB.ER.24H PO (13:44)
--- NOTE | 2025-01-05 13:50 | HO.PM.IMCN ---
History of Present Illness Data of Consult Service Date: 01/05/25 Primary Care Provider: None Physician HPI Reason for consult: Medical management 34-year-old male with a past medical history of seizure disorder, anxiety, and substance misuse including Percocet, Adderall and clonazepam. Patient possibly overdose on benzodiazepines. CBC without leukocytosis, AST and ALT slightly elevated otherwise no significant electrolyte imbalances. Blood gases within normal limits He was observed in the ED with no significant respiratory or mentation issues. His EKG demonstrated QTC of 421 no ischemic changes, normal sinus rhythm. His tox screen was positive for marijuana, notably no benzos detected. His urinalysis was negative. On exam he has no medical concerns, denies any shortness of breath, dizziness, chest pain or any other concerning symptoms. No recent seizure activity. Patient has an upcoming appointment for Neurology as well as a PCP. Review of Systems Review of Systems: Denies any shortness of breath, chest pain, dizziness, lightheadedness, abdominal pain or discomfort, nausea vomiting or diarrhea PMFSH Medical History Seizures Eczema Asthma Surgical History Hx of appendectomy Social History Household Members: None Household Members Other:: homeless Housing: Homeless Do you presently have visiting nurse or other home services: No Alcohol intake: current Alcohol intake frequency: a few times a month Alcohol type: beer and hard liquor Comment: 1:1 sitter Patient Tobacco Use Status: Current someday Tobacco user Tobacco use type: Cigarette Cigarettes Per Day: 3 Smoked in Last 30 Days: Yes e-Cigarette/Vaping Use: Never Used Patient Interested in Nicotine Replacement: Yes (gum only) Patient Given Instructions on How to Stop Smoking: No Second Hand Smoke Exposure: No Use of substances other than those prescribed or required for medical reasons: Yes Substance Use Type: Crack/Cocaine Currently Displaying Signs/Symptoms of Drug Intoxication Withdrawal: No Have you been hit, kicked, punched, or otherwise hurt by someone within the past year? If so, by whom?: No Do you feel safe in your current relationship?: No Current Relationship Is there a partner from a previous relationship who is making you feel unsafe now?: No Are you made to feel afraid or neglected: No Advance Directives: No Advance Directives Information Provided: No Do you have thoughts of harming others: None Do you have a plan to hurt others: No Plan Recently lost weight without trying: No How much weight loss: Not applicable Nutrition Risks: No Nutritional Risk Poor oral hygiene: Yes service: No Sexual orientation: Straight/Heterosexual Meds Allergies Allergy/AdvReac Type Severity Reaction Status Date / Time apple (APPLE) Allergy Unknown ANAPHYLAXIS Verified 01/03/25 15:54 pollen extracts (POLLEN) Allergy Unknown SNEEZING Verified 01/03/25 15:54 Active Medications: Current Medications Acetaminophen (Acetaminophen 325 Mg Tablet) 650 mg PO Q6H PRN PRN Reason: Headache/Pain, Scale 1-10 Al Hydroxide/Mg Hydroxide (Magnesium Hydrox/Alum Hydrox 30 Ml Oral.Susp) 30 ml PO Q6H PRN PRN Reason: Heartburn/Nausea Clonidine HCl (Clonidine Hcl 0.1 Mg Tablet) 0.1 mg PO Q4H PRN; Protocol PRN Reason: moderate anxiety Doxycycline Monohydrate (Doxycycline Monohydrate 100 Mg Capsule) 100 mg PO BID [facility] Stop: 01/11/25 13:14 Last Admin: 01/05/25 13:44 Dose: 100 mg Guanfacine HCl (Guanfacine Hcl Er 1 Mg Tab.Er.24h) 1 mg PO DAILY [facility] Last Admin: 01/05/25 13:44 Dose: 1 mg Hydroxyzine HCl (Hydroxyzine Hcl 25 Mg Tablet) 25 mg PO Q6H PRN PRN Reason: mild anxiety Last Admin: 01/04/25 16:14 Dose: 25 mg Levetiracetam (Levetiracetam 500 Mg Tablet) 500 mg PO BID [facility] Last Admin: 01/05/25 09:24 Dose: 500 mg Magnesium Hydroxide (Milk Of Magnesia 30 Ml Oral.Susp) 30 ml PO DAILY PRN PRN Reason: Constipation Nicotine (Nicotine 21 Mg Patch.Td24) 21 mg TRANSDERMA DAILY PRN PRN Reason: smoking cessation Nicotine Polacrilex (Nicotine Polacrilex 2 Mg Gum) 4 mg BUCCAL Q2H PRN PRN Reason: Nicotine Cravings Last Admin: 01/05/25 10:49 Dose: 4 mg Olanzapine (Olanzapine 5 Mg Tablet) 5 mg PO TID PRN PRN Reason: agitation Last Admin: 01/04/25 20:18 Dose: 5 mg Trazodone HCl (Trazodone Hcl 50 Mg Tablet) 50 mg PO BEDTIME MRX1 PRN PRN Reason: Insomnia Last Admin: 01/04/25 20:18 Dose: 50 mg Triamcinolone Acetonide (Triamcinolone Acet 0.1 % Oint 15 Gm Tube) 1 appl TOPICAL TID PRN PRN Reason: psoriasis Last Admin: 01/05/25 12:19 Dose: 1 appl Home Medications ?Medication ?Instructions ?Recorded ?Confirmed ?Last Taken ?Type doxycycline hyclate 100 mg capsule 100 mg PO BID 01/05/25 01/05/25 Unknown History Physical Exam Vital Signs and Narrative: Vital Signs: Last Vital Signs Temp 97.8 F 01/04/25 20:00 Pulse 70 01/04/25 20:00 Resp 16 01/04/25 20:00 BP 107/60 01/04/25 20:00 Pulse Ox 98 01/04/25 20:00 O2 Del Method Room Air 01/04/25 20:00 BMI result Body Mass Index 20.7 CONST: Alert and oriented, in NAD. Well nourished HEENT: Normocephalic, atraumatic, MMM, Eyes clear, Neck supple RESP: Lungs clear, RRR even and regular HEART:,RRR, S1, S2. No murmur, no edema GI:Abdomen Soft NT, ND. + BS times four :Deferred SKIN: Warm dry and intact, no visible lesions or rashes NEURO:CN II-XII Intact bilaterally, Sensation intact. Speech clear PSYCH: Normal affect Results Labs 01/03/25 16:41 01/05/25 08:04 Labs: Laboratory Results - last 24 hr 01/05/25 08:04 Anion Gap 15 Estim Creat Clear Calc 121.8 Estimated GFR > 60 Random Glucose 98 Estimat Average Glucose 91 Hemoglobin A1c % 4.8 Calcium 9.6 Total Bilirubin 0.7 AST 49 H ALT 60 H Alkaline Phosphatase 109 Total Protein 7.2 Albumin 4.3 Triglycerides 125 Cholesterol 144 LDL Cholesterol, Calc 90 HDL Cholesterol 29 L Assessment and Plan (1) Seizure disorder: Status: Acute Plan 34-year-old male with history of mood disorder, seizure disorder, history of substance misuse. Depression/intentional self-harm Treatment per psychiatric team Seizure disorder Continue levetiracetam b.i.d. Discharged from inpatient on 12/22/2024. Had witnessed seizure while inpatient, recommendations to follow up with Neurology as an outpatient. Will need an outpatient 48 hour ambulatory EEG Follow Twyla Bernstein, social issues Complicated by patient being unable to read or write. Thank you for allowing me to participate in the care of this patient. Signing off at this time. Please reconsult of any acute concerns or issues arise
[2025-01-05 20:00] VITALS: BP 114/57; PULSE 98; RESP 16; TEMP 36.4; O2SAT 98
[2025-01-06 08:00] VITALS: BP 107/55; PULSE 75; TEMP 36.3; O2SAT 96
[2025-01-06] MEDS: guanFACINE HCl ER 1 MG TAB.ER.24H PO (08:42)
[2025-01-06] MEDS: Triamcinolone Acet 0.1 % Oint 15 GM TUBE 1 APPL TOPICAL (08:42)
--- NOTE | 2025-01-06 11:09 | HO.PSYCHPN ---
Subjective Subjective Date of Service: 01/06/25 Reason For Visit: SI Subjective Notes: Conditional Voluntary Healthcare Proxy: No Guardianship: No Medical Problems Affecting Mental Status: No Interim History: Medical record and nursing notes reviewed; case discussed during rounds with team/nursing staff, and met with patient for supportive therapy/psychoeducation, as well as medication management. Patient reported that he slept well last night, appetite is okay. Reports anxiety and depression. He is pleasant and cooperative, logical, reasonable. However appears to be minimize of his substance use. He overdose on unknown medication at the parking lot that he got from his friend. Patient is receptive to the plan of medication, starts sertraline 25 mg x1 this morning we plan to increase up to 50 mg tomorrow. Scheduled trazodone at bedtime for sleep Keppra level tomorrow. Patient reports that he is very motivated to get a job so that he can be around his daughter. He is frustrated that he has no where to stay, and when he was told to see if he wants to go to [facility], he got so angry about it and he does not want to live away from his daughter. He states that his daughter is his everything, and she means a lot him. Patient reported that he developed seizure disorder after his mom passed 2 years ago. Reports that losing his mom is a big stress for him. Observed visible and attended groups, tolerate well with other peers who is intrusive being around him. Denies safety concerns. Review with patient regarding medication available for him, and PRNs cream for his psoriasis. No behavior issues but can be impulsive. Medication Compliance: Yes Side effects from medications: No Attending Groups: Yes Review of Systems Acute medical concerns: No Medical Review of Systems: unchanged Review of Systems Review of Systems Denies any shortness of breath, chest pain, dizziness, lightheadedness, abdominal pain or discomfort, nausea vomiting or diarrhea Yes all other systems are reviewed and are negative Mental Status Exam Mental Status Exam Narrative: Pt is alert and oriented; behavior is cooperative, anxious; patient is not in distress; dressed in casual attire with kempt hair and adequate hygiene; mood is described as anxious, irritable toward father on phone and affect congruent; eye contact appropriate; Speech is normal rate, volume and prosody and not pressured; no psychomotor agitation/retardation present; thought process is organized and goal directed; Thought content is on tx; otherwise pertinent to relevant topics and without any delusional content, paranoid ideations or grandiosity; denies any SI/HI. Denies AVH and there is no evidence of perceptual disturbance. Patients insight and judgment appear intact. Diagnostics Vital Signs (24Hr): Vital Signs - 24 hr 01/05/25 20:00 01/06/25 08:00 Temperature 97.6 F 97.3 F Pulse Rate 98 75 Respiratory Rate 16 Blood Pressure 114/57 L 107/55 L Pulse Oximetry 98 96 Oxygen Delivery Method Room Air Room Air BMI result Body Mass Index 20.7 Labs 01/03/25 16:41 01/05/25 08:04 Labs: Laboratory Results - last 48 hr 01/05/25 08:04 Sodium 140 Potassium 4.5 Chloride 107 Carbon Dioxide 23 Anion Gap 15 BUN 13 Creatinine 0.71 Estim Creat Clear Calc 121.8 Estimated GFR > 60 Random Glucose 98 Estimat Average Glucose 91 Hemoglobin A1c % 4.8 Calcium 9.6 Total Bilirubin 0.7 AST 49 H ALT 60 H Alkaline Phosphatase 109 Total Protein 7.2 Albumin 4.3 Triglycerides 125 Cholesterol 144 LDL Cholesterol, Calc 90 HDL Cholesterol 29 L Medications Medications Current Medications Acetaminophen (Acetaminophen 325 Mg Tablet) 650 mg PO Q6H PRN PRN Reason: Headache/Pain, Scale 1-10 Al Hydroxide/Mg Hydroxide (Magnesium Hydrox/Alum Hydrox 30 Ml Oral.Susp) 30 ml PO Q6H PRN PRN Reason: Heartburn/Nausea Clonidine HCl (Clonidine Hcl 0.1 Mg Tablet) 0.1 mg PO Q4H PRN; Protocol PRN Reason: moderate anxiety Doxycycline Monohydrate (Doxycycline Monohydrate 100 Mg Capsule) 100 mg PO BID [facility] Stop: 01/11/25 13:14 Last Admin: 01/06/25 08:42 Dose: 100 mg Guanfacine HCl (Guanfacine Hcl Er 1 Mg Tab.Er.24h) 1 mg PO DAILY [facility] Last Admin: 01/06/25 08:42 Dose: 1 mg Hydroxyzine HCl (Hydroxyzine Hcl 25 Mg Tablet) 25 mg PO Q6H PRN PRN Reason: mild anxiety Last Admin: 01/05/25 18:07 Dose: 25 mg Levetiracetam (Levetiracetam 500 Mg Tablet) 500 mg PO BID [facility] Last Admin: 01/06/25 08:42 Dose: 500 mg Magnesium Hydroxide (Milk Of Magnesia 30 Ml Oral.Susp) 30 ml PO DAILY PRN PRN Reason: Constipation Nicotine (Nicotine 21 Mg Patch.Td24) 21 mg TRANSDERMA DAILY PRN PRN Reason: smoking cessation Nicotine Polacrilex (Nicotine Polacrilex 2 Mg Gum) 4 mg BUCCAL Q2H PRN PRN Reason: Nicotine Cravings Last Admin: 01/06/25 09:30 Dose: 4 mg Olanzapine (Olanzapine 5 Mg Tablet) 5 mg PO TID PRN PRN Reason: agitation Last Admin: 01/05/25 20:37 Dose: 5 mg Sertraline HCl (Sertraline Hcl 50 Mg Tablet) 50 mg PO DAILY [facility] Trazodone HCl (Trazodone Hcl 50 Mg Tablet) 50 mg PO BEDTIME [facility] Trazodone HCl (Trazodone Hcl 50 Mg Tablet) 50 mg PO BEDTIME PRN PRN Reason: Insomnia Triamcinolone Acetonide (Triamcinolone Acet 0.1 % Oint 15 Gm Tube) 1 appl TOPICAL TID PRN PRN Reason: psoriasis Last Admin: 01/06/25 08:42 Dose: 1 appl Allergies Allergies Allergy/AdvReac Type Severity Reaction Status Date / Time apple (APPLE) Allergy Unknown ANAPHYLAXIS Verified 01/03/25 15:54 pollen extracts (POLLEN) Allergy Unknown SNEEZING Verified 01/03/25 15:54 Assessment & Plan Assessment & Plan (1) Anxiety: Status: Acute Code(s): F41.9 - Anxiety disorder, unspecified (2) Seizure disorder: Status: Acute Code(s): G40.909 - Epilepsy, unspecified, not intractable, without status epilepticus (3) Drug addiction: Status: Acute Code(s): F19.20 - Other psychoactive substance dependence, uncomplicated (4) Homeless: Status: Acute Code(s): Z59.00 - Homelessness unspecified Plan Pt is a 34 yo male with hx of anxiety and substance abuse (pills), Psoriasis, Seizure disorder on Keppra, who presents for overdose what he thought was clonazepam, but he's not sure exactly (utox cannabis only). In ED he vaguely endorsed but now says he took pills just to get high... Says he just said SI to get admitted but that he is anxious and needs help; says he is addicted to pills and buys percs, adderall, klonopin.. He laments i keep getting fired because of the pills...if I'm stressed at work, i take a bunch of pills and then go back to work but then fall asleep. Also says my mom 2 years ago and i'm still traumatized by that... Says he has moments of depression but they are short lived. Denies any alcohol use. Formulation/Clinical reasoning: pt endorses much anxiety that impedes function and for which he has few coping skills. Seems to deny depressive episodes. No SI and said just to gain admission; but pt can benefit from admission Last admission had Seizure, now on Keppra Had started patient on Zoloft...this might be helpful for anxiety-it is low risk for lowering seizure threshold, but since his symptoms are more anxiety than depression, will try Intuniv first 01/06/25: Patient reported that he slept well last night, appetite is okay. Reports anxiety and depression. He is pleasant and cooperative, logical, reasonable. However appears to be minimize of his substance use. He overdose on unknown medication at the parking lot that he got from his friend. Patient is receptive to the plan of medication, starts sertraline 25 mg x1 this morning we plan to increase up to 50 mg tomorrow. Scheduled trazodone at bedtime for sleep Keppra level tomorrow. Patient reports that he is very motivated to get a job so that he can be around his daughter. He is frustrated that he has no where to stay, and when he was told to see if he wants to go to [facility], he got so angry about it and he does not want to live away from his daughter. He states that his daughter is his everything, and she means a lot him. Patient reported that he developed seizure disorder after his mom passed 2 years ago. Reports that losing his mom is a big stress for him. Observed visible and attended groups, tolerate well with other peers who is intrusive being around him. Denies safety concerns. Review with patient regarding medication available for him, and PRNs cream for his psoriasis. No behavior issues but can be impulsive. Visit with dad which is depressing Zoloft 25mg x1 now. Increased zoloft 50mg on 01/07/25. Scheduled trazodone 50mg at HS for insomnia Keppra level on 01/07/25. Plan: cv q15 Start Intuniv 1mg daily for anxiety and impulsivity Consider restarting Zoloft: restared on 01/06/25 [facility] consult placed CONTINUE Doxy 100mg BID for 6 more days; pt recently started on in [facility] and finished 4 days of 10 day course (discussed w/ patient) last dose on 01/11. *pt can get verbal abusive to staff: Low threshold for administrative discharge...: 01/06/25: no behavior issues. Patient educated on: diagnosis, medication risk/benefits, substance abuse and therapeutic strategies Informed Consent: understands Reason for continued inpatient stay Substantial Risk for: med/psych decompensation Time Spent With Patient Time: Total time managing care of this patient today ____ minutes.
[2025-01-06 14:02] VITALS: BP 120/82
[2025-01-06 18:19] VITALS: BP 106/69
[2025-01-06 20:00] VITALS: BP 97/61; PULSE 74; RESP 14; TEMP 36.4; O2SAT 98
[2025-01-07 08:00] VITALS: BP 101/66; PULSE 88; RESP 14; TEMP 36.9; O2SAT 97
--- NOTE | 2025-01-07 08:01 | P.PNPSI_ITS ---
Subjective Subjective Date of Service: 01/07/25 Reason For Visit: SI Subjective Notes: Conditional Voluntary Healthcare Proxy: No Guardianship: No Medical Problems Affecting Mental Status: No Interim History: Medical record and nursing notes reviewed; case discussed during rounds with team/nursing staff, and met with patient for supportive therapy/psychoeducation, as well as medication management. Sleep is better.No issues with appetite. Irritable on phone with dad which seem triggered him or his baseline is irritable and impulsive. Continue to educate and encourage patent to avoid the peer who is poor boundaries. Patient can be impulsive. Denies side effects from meds. Denies safety concern, visible, attended groups. Medication Compliance: Yes Side effects from medications: No Attending Groups: Yes Review of Systems Acute medical concerns: No Medical Review of Systems: unchanged Review of Systems Review of Systems Denies any shortness of breath, chest pain, dizziness, lightheadedness, abdominal pain or discomfort, nausea vomiting or diarrhea Yes all other systems are reviewed and are negative Mental Status Exam Mental Status Exam Narrative: Pt is alert and oriented; behavior is cooperative, anxious; patient is not in distress; dressed in casual attire with kempt hair and adequate hygiene; mood is described as anxious, irritable toward father on phone and peer on the unit and affect congruent; eye contact appropriate; Speech is normal rate, volume and prosody and not pressured; no psychomotor agitation/retardation present; thought process is organized and goal directed; Thought content is on tx; otherwise pertinent to relevant topics and without any delusional content, paranoid ideations or grandiosity; denies any SI/HI. Denies AVH and there is no evidence of perceptual disturbance. Patients insight and judgment appear intact. Diagnostics Vital Signs (24Hr): Vital Signs - 24 hr 01/06/25 14:02 01/06/25 18:19 01/06/25 20:00 Temperature 97.5 F Pulse Rate 74 Respiratory Rate 14 Blood Pressure 120/82 106/69 97/61 Pulse Oximetry 98 Oxygen Delivery Method Room Air BMI result Body Mass Index 20.7 Labs 01/03/25 16:41 01/05/25 08:04 Labs: Laboratory Results - last 48 hr 01/05/25 08:04 Sodium 140 Potassium 4.5 Chloride 107 Carbon Dioxide 23 Anion Gap 15 BUN 13 Creatinine 0.71 Estim Creat Clear Calc 121.8 Estimated GFR > 60 Random Glucose 98 Estimat Average Glucose 91 Hemoglobin A1c % 4.8 Calcium 9.6 Total Bilirubin 0.7 AST 49 H ALT 60 H Alkaline Phosphatase 109 Total Protein 7.2 Albumin 4.3 Triglycerides 125 Cholesterol 144 LDL Cholesterol, Calc 90 HDL Cholesterol 29 L Medications Medications Current Medications Acetaminophen (Acetaminophen 325 Mg Tablet) 650 mg PO Q6H PRN PRN Reason: Headache/Pain, Scale 1-10 Al Hydroxide/Mg Hydroxide (Magnesium Hydrox/Alum Hydrox 30 Ml Oral.Susp) 30 ml PO Q6H PRN PRN Reason: Heartburn/Nausea Clonidine HCl (Clonidine Hcl 0.1 Mg Tablet) 0.1 mg PO Q4H PRN; Protocol PRN Reason: moderate anxiety Last Admin: 01/06/25 18:19 Dose: 0.1 mg Doxycycline Monohydrate (Doxycycline Monohydrate 100 Mg Capsule) 100 mg PO BID [facility] Stop: 01/11/25 13:14 Last Admin: 01/06/25 20:16 Dose: 100 mg Guanfacine HCl (Guanfacine Hcl Er 1 Mg Tab.Er.24h) 1 mg PO DAILY [facility] Last Admin: 01/06/25 08:42 Dose: 1 mg Hydroxyzine HCl (Hydroxyzine Hcl 25 Mg Tablet) 25 mg PO Q6H PRN PRN Reason: mild anxiety Last Admin: 01/05/25 18:07 Dose: 25 mg Levetiracetam (Levetiracetam 500 Mg Tablet) 500 mg PO BID [facility] Last Admin: 01/06/25 20:17 Dose: 500 mg Magnesium Hydroxide (Milk Of Magnesia 30 Ml Oral.Susp) 30 ml PO DAILY PRN PRN Reason: Constipation Nicotine (Nicotine 21 Mg Patch.Td24) 21 mg TRANSDERMA DAILY PRN PRN Reason: smoking cessation Nicotine Polacrilex (Nicotine Polacrilex 2 Mg Gum) 4 mg BUCCAL Q2H PRN PRN Reason: Nicotine Cravings Last Admin: 01/07/25 07:42 Dose: 4 mg Olanzapine (Olanzapine 5 Mg Tablet) 5 mg PO TID PRN PRN Reason: agitation Last Admin: 01/06/25 20:16 Dose: 5 mg Sertraline HCl (Sertraline Hcl 50 Mg Tablet) 50 mg PO DAILY [facility] Trazodone HCl (Trazodone Hcl 50 Mg Tablet) 50 mg PO BEDTIME [facility] Last Admin: 01/06/25 20:17 Dose: 50 mg Trazodone HCl (Trazodone Hcl 50 Mg Tablet) 50 mg PO BEDTIME PRN PRN Reason: Insomnia Last Admin: 01/06/25 21:22 Dose: 50 mg Triamcinolone Acetonide (Triamcinolone Acet 0.1% Lotion 60 Ml Bottle) 1 appl TOPICAL TID PRN PRN Reason: psoriasis Allergies Allergies Allergy/AdvReac Type Severity Reaction Status Date / Time apple (APPLE) Allergy Unknown ANAPHYLAXIS Verified 01/03/25 15:54 pollen extracts (POLLEN) Allergy Unknown SNEEZING Verified 01/03/25 15:54 Assessment & Plan Assessment & Plan (1) Anxiety: Status: Acute Code(s): F41.9 - Anxiety disorder, unspecified (2) Seizure disorder: Status: Acute Code(s): G40.909 - Epilepsy, unspecified, not intractable, without status epilepticus (3) Drug addiction: Status: Acute Code(s): F19.20 - Other psychoactive substance dependence, uncomplicated (4) Homeless: Status: Acute Code(s): Z59.00 - Homelessness unspecified Plan Pt is a 34 yo male with hx of anxiety and substance abuse (pills), Psoriasis, Seizure disorder on Keppra, who presents for overdose what he thought was clonazepam, but he's not sure exactly (utox cannabis only). In ED he vaguely endorsed but now says he took pills just to get high... Says he just said SI to get admitted but that he is anxious and needs help; says he is addicted to pills and buys percs, adderall, klonopin.. He laments i keep getting fired because of the pills...if I'm stressed at work, i take a bunch of pills and then go back to work but then fall asleep. Also says my mom 2 years ago and i'm still traumatized by that... Says he has moments of depression but they are short lived. Denies any alcohol use. Formulation/Clinical reasoning: pt endorses much anxiety that impedes function and for which he has few coping skills. Seems to deny depressive episodes. No SI and said just to gain admission; but pt can benefit from admission Last admission had Seizure, now on Keppra Had started patient on Zoloft...this might be helpful for anxiety-it is low risk for lowering seizure threshold, but since his symptoms are more anxiety than depression, will try Intuniv first 01/06/25: Patient reported that he slept well last night, appetite is okay. Reports anxiety and depression. He is pleasant and cooperative, logical, reasonable. However appears to be minimize of his substance use. He overdose on unknown medication at the parking lot that he got from his friend. Patient is receptive to the plan of medication, starts sertraline 25 mg x1 this morning we plan to increase up to 50 mg tomorrow. Scheduled trazodone at bedtime for sleep Keppra level tomorrow. Patient reports that he is very motivated to get a job so that he can be around his daughter. He is frustrated that he has no where to stay, and when he was told to see if he wants to go to [facility], he got so angry about it and he does not want to live away from his daughter. He states that his daughter is his everything, and she means a lot him. Patient reported that he developed seizure disorder after his mom passed 2 years ago. Reports that losing his mom is a big stress for him. Observed visible and attended groups, tolerate well with other peers who is intrusive being around him. Denies safety concerns. Review with patient regarding medication available for him, and PRNs cream for his psoriasis. No behavior issues but can be impulsive. Visit with dad which is depressing Zoloft 25mg x1 now. Increased zoloft 50mg on 01/07/25. Scheduled trazodone 50mg at HS for insomnia Keppra level on 01/07/25. 01/07/25: Sleep is better.No issues with appetite. Irritable on phone with dad which seem triggered him or his baseline is irritable and impulsive. Continue to educate and encourage patent to avoid the peer who is poor boundaries. Patient can be impulsive. Denies side effects from meds. Denies safety concern, visible, attended groups. Continue with tx plan. Pending keppa level. Will increase Intuniv to 2mg in the AM Plan: cv q15 Increased Intuniv 2mg daily for anxiety and impulsivity Consider restarting Zoloft: restared on 01/06/25 [facility] consult placed CONTINUE Doxy 100mg BID for 6 more days; pt recently started on in [facility] [place] [place] ED and finished 4 days of 10 day course (discussed w/ patient) last dose on 01/11. *pt can get verbal abusive to staff: Low threshold for administrative discharge...: 01/06/25: no behavior issues. Patient educated on: medication risk/benefits, substance abuse and therapeutic strategies Informed Consent: understands Reason for continued inpatient stay Substantial Risk for: med/psych decompensation Time Spent With Patient Time: Total time managing care of this patient today ____ minutes.
[2025-01-07] MEDS: guanFACINE HCl ER 1 MG TAB.ER.24H PO (08:29)
[2025-01-07 19:58] VITALS: BP 117/55; PULSE 82; RESP 18; TEMP 36.6; O2SAT 99
[2025-01-07] MEDS: Triamcinolone Acet 0.1% Lotion 60 ML BOTTLE 1 APPL TOPICAL ×2 (20:15→22:38)
[2025-01-07 21:10] VITALS: BP 117/55
[2025-01-08 08:00] VITALS: BP 111/59; PULSE 58; RESP 18; TEMP 36.6; O2SAT 98
[2025-01-08] MEDS: guanFACINE HCl ER 2 MG TAB.ER.24H PO (09:33)
[2025-01-08 19:55] VITALS: BP 113/76; PULSE 70; RESP 15; TEMP 37.2; O2SAT 98
--- NOTE | 2025-01-08 21:42 | HO.PSYCHPN ---
Subjective Subjective Date of Service: 01/08/25 Reason For Visit: SI Subjective Notes: Conditional Voluntary Healthcare Proxy: No Guardianship: No Medical Problems Affecting Mental Status: No Interim History: Medical record and nursing notes reviewed; case discussed during rounds with team/nursing staff, and met with patient for supportive therapy/psychoeducation, as well as medication management. Patient slept well, compliant with medications. Denies side effect. Visible, pleasant and cooperative upon approach. Deny craving for any substances, denies any safety concerns. Can be impulsive, but in better control. Mostly irritable on the phone with his father. Tolerate with medication well, having Intuniv increase. Continue to monitor for vital signs and effectiveness. Medication Compliance: Yes Side effects from medications: No Attending Groups: Intermittent Review of Systems Acute medical concerns: No Medical Review of Systems: unchanged Review of Systems Review of Systems Denies any shortness of breath, chest pain, dizziness, lightheadedness, abdominal pain or discomfort, nausea vomiting or diarrhea Yes all other systems are reviewed and are negative Mental Status Exam Mental Status Exam Narrative: Pt is alert and oriented; behavior is cooperative, less anxious; patient is not in distress; dressed in casual attire with kempt hair and adequate hygiene; mood is described as anxious, irritable toward father on phone and peer on the unit and affect congruent; eye contact appropriate; Speech is normal rate, volume and prosody and not pressured; no psychomotor agitation/retardation present; thought process is organized and goal directed; Thought content is on tx; otherwise pertinent to relevant topics and without any delusional content, paranoid ideations or grandiosity; denies any SI/HI. Denies AVH and there is no evidence of perceptual disturbance. Patients insight and judgment appear intact. Diagnostics Vital Signs (24Hr): Vital Signs - 24 hr 01/08/25 08:00 01/08/25 19:55 Temperature 97.9 F 98.9 F Pulse Rate 58 70 Respiratory Rate 18 15 Blood Pressure 111/59 L 113/76 Pulse Oximetry 98 98 Oxygen Delivery Method Room Air BMI result Body Mass Index 20.7 Labs 01/03/25 16:41 01/05/25 08:04 Medications Medications Current Medications Acetaminophen (Acetaminophen 325 Mg Tablet) 650 mg PO Q6H PRN PRN Reason: Headache/Pain, Scale 1-10 Al Hydroxide/Mg Hydroxide (Magnesium Hydrox/Alum Hydrox 30 Ml Oral.Susp) 30 ml PO Q6H PRN PRN Reason: Heartburn/Nausea Clonidine HCl (Clonidine Hcl 0.1 Mg Tablet) 0.1 mg PO Q4H PRN; Protocol PRN Reason: moderate anxiety Last Admin: 01/08/25 20:43 Dose: 0.1 mg Doxycycline Monohydrate (Doxycycline Monohydrate 100 Mg Capsule) 100 mg PO BID [facility] Stop: 01/11/25 13:14 Last Admin: 01/08/25 20:43 Dose: 100 mg Guanfacine HCl (Guanfacine Hcl Er 2 Mg Tab.Er.24h) 2 mg PO DAILY [facility] Last Admin: 01/08/25 09:33 Dose: 2 mg Hydroxyzine HCl (Hydroxyzine Hcl 25 Mg Tablet) 25 mg PO Q6H PRN PRN Reason: mild anxiety Last Admin: 01/08/25 14:36 Dose: 25 mg Levetiracetam (Levetiracetam 500 Mg Tablet) 500 mg PO BID [facility] Last Admin: 01/08/25 20:43 Dose: 500 mg Magnesium Hydroxide (Milk Of Magnesia 30 Ml Oral.Susp) 30 ml PO DAILY PRN PRN Reason: Constipation Nicotine (Nicotine 21 Mg Patch.Td24) 21 mg TRANSDERMA DAILY PRN PRN Reason: smoking cessation Nicotine Polacrilex (Nicotine Polacrilex 2 Mg Gum) 4 mg BUCCAL Q2H PRN PRN Reason: Nicotine Cravings Last Admin: 01/08/25 19:29 Dose: 4 mg Olanzapine (Olanzapine 5 Mg Tablet) 5 mg PO TID PRN PRN Reason: agitation Last Admin: 01/08/25 10:32 Dose: 5 mg Sertraline HCl (Sertraline Hcl 50 Mg Tablet) 50 mg PO DAILY [facility] Last Admin: 01/08/25 08:27 Dose: 50 mg Trazodone HCl (Trazodone Hcl 50 Mg Tablet) 50 mg PO BEDTIME [facility] Last Admin: 01/08/25 20:43 Dose: 50 mg Trazodone HCl (Trazodone Hcl 50 Mg Tablet) 50 mg PO BEDTIME PRN PRN Reason: Insomnia Last Admin: 01/07/25 19:48 Dose: 50 mg Triamcinolone Acetonide (Triamcinolone Acet 0.1% Lotion 60 Ml Bottle) 1 appl TOPICAL TID PRN PRN Reason: psoriasis Last Admin: 01/07/25 22:38 Dose: 1 appl Allergies Allergies Allergy/AdvReac Type Severity Reaction Status Date / Time apple (APPLE) Allergy Unknown ANAPHYLAXIS Verified 01/03/25 15:54 pollen extracts (POLLEN) Allergy Unknown SNEEZING Verified 01/03/25 15:54 Assessment & Plan Assessment & Plan (1) Anxiety: Status: Acute Code(s): F41.9 - Anxiety disorder, unspecified (2) Seizure disorder: Status: Acute Code(s): G40.909 - Epilepsy, unspecified, not intractable, without status epilepticus (3) Drug addiction: Status: Acute Code(s): F19.20 - Other psychoactive substance dependence, uncomplicated (4) Homeless: Status: Acute Code(s): Z59.00 - Homelessness unspecified Plan Pt is a 34 yo male with hx of anxiety and substance abuse (pills), Psoriasis, Seizure disorder on Keppra, who presents for overdose what he thought was clonazepam, but he's not sure exactly (utox cannabis only). In ED he vaguely endorsed but now says he took pills just to get high... Says he just said SI to get admitted but that he is anxious and needs help; says he is addicted to pills and buys percs, adderall, klonopin.. He laments i keep getting fired because of the pills...if I'm stressed at work, i take a bunch of pills and then go back to work but then fall asleep. Also says my mom 2 years ago and i'm still traumatized by that... Says he has moments of depression but they are short lived. Denies any alcohol use. Formulation/Clinical reasoning: pt endorses much anxiety that impedes function and for which he has few coping skills. Seems to deny depressive episodes. No SI and said just to gain admission; but pt can benefit from admission Last admission had Seizure, now on Keppra Had started patient on Zoloft...this might be helpful for anxiety-it is low risk for lowering seizure threshold, but since his symptoms are more anxiety than depression, will try Intuniv first 01/06/25: Patient reported that he slept well last night, appetite is okay. Reports anxiety and depression. He is pleasant and cooperative, logical, reasonable. However appears to be minimize of his substance use. He overdose on unknown medication at the parking lot that he got from his friend. Patient is receptive to the plan of medication, starts sertraline 25 mg x1 this morning we plan to increase up to 50 mg tomorrow. Scheduled trazodone at bedtime for sleep Keppra level tomorrow. Patient reports that he is very motivated to get a job so that he can be around his daughter. He is frustrated that he has no where to stay, and when he was told to see if he wants to go to [facility], he got so angry about it and he does not want to live away from his daughter. He states that his daughter is his everything, and she means a lot him. Patient reported that he developed seizure disorder after his mom passed 2 years ago. Reports that losing his mom is a big stress for him. Observed visible and attended groups, tolerate well with other peers who is intrusive being around him. Denies safety concerns. Review with patient regarding medication available for him, and PRNs cream for his psoriasis. No behavior issues but can be impulsive. Visit with dad which is depressing Zoloft 25mg x1 now. Increased zoloft 50mg on 01/07/25. Scheduled trazodone 50mg at HS for insomnia Keppra level on 01/07/25. 01/07/25: Sleep is better.No issues with appetite. Irritable on phone with dad which seem triggered him or his baseline is irritable and impulsive. Continue to educate and encourage patent to avoid the peer who is poor boundaries. Patient can be impulsive. Denies side effects from meds. Denies safety concern, visible, attended groups. Continue with tx plan. Pending keppa level. Will increase Intuniv to 2mg in the AM 01/08/25: Patient slept well, compliant with medications. Denies side effect. Visible, pleasant and cooperative upon approach. Deny craving for any substances, denies any safety concerns. Can be impulsive, but in better control. Mostly irritable on the phone with his father. Tolerate with medication well, having Intuniv increase. Continue to monitor for vital signs and effectiveness. Plan: cv q15 Increased Intuniv 2mg daily for anxiety and impulsivity Consider restarting Zoloft: restared on 01/06/25 CCC consult placed CONTINUE Doxy 100mg BID for 6 more days; pt recently started on in [facility] and finished 4 days of 10 day course (discussed w/ patient) last dose on 01/11. *pt can get verbal abusive to staff: Low threshold for administrative discharge...: 01/06/25: no behavior issues. Patient educated on: diagnosis, medication risk/benefits, substance abuse and therapeutic strategies Informed Consent: understands Reason for continued inpatient stay Substantial Risk for: med/psych decompensation Time Spent With Patient Time: Total time managing care of this patient today ____ minutes.
[2025-01-08 21:48] LABS: Levetiracetam Keppra 13.1 mcg/mL (6.0-46.0)
[2025-01-08] MEDS: Triamcinolone Acet 0.1% Lotion 60 ML BOTTLE 1 APPL TOPICAL (22:32)
[2025-01-09 07:44] VITALS: BP 106/54; PULSE 63; TEMP 36.8; O2SAT 97
[2025-01-09] MEDS: guanFACINE HCl ER 2 MG TAB.ER.24H PO (08:30)
[2025-01-09 13:21] VITALS: BP 116/60
[2025-01-09 20:00] VITALS: BP 102/57; PULSE 81; RESP 18; TEMP 37.1; O2SAT 98
--- NOTE | 2025-01-09 22:07 | HO.PSYCHPN ---
Subjective Subjective Date of Service: 01/09/25 Reason For Visit: SI Interim History: met with patient; discussed with team; reviewed chart pt reports anxiety and depression are a little better; Zoloft recently raised to 50mg; will titrate slowly given seizure disorder. pt continues to have pain, left side of torso; advertising writer examined and point tenderness on 2 places on ribs; imaging negative Mental Status Exam Mental Status Exam Narrative: Pt is alert and oriented; behavior is cooperative, anxious; patient is not in distress; dressed in casual attire with adequate hygiene; mood is described as anxious/depressed but little better and affect congruent; eye contact appropriate; Speech is normal rate, volume and prosody and not pressured; no psychomotor agitation/retardation present; thought process is organized and goal directed; Thought content is on tx; otherwise pertinent to relevant topics and without any delusional content, paranoid ideations or grandiosity; denies any SI/HI. Denies AVH and there is no evidence of perceptual disturbance. Patients insight and judgment appear intact. Diagnostics Vital Signs (24Hr): Vital Signs - 24 hr 01/09/25 07:44 01/09/25 13:21 01/09/25 20:00 Temperature 98.2 F 98.8 F Pulse Rate 63 81 Respiratory Rate 18 Blood Pressure 106/54 L 116/60 102/57 L Pulse Oximetry 97 98 Oxygen Delivery Method Room Air Room Air BMI result Body Mass Index 20.7 Labs 01/03/25 16:41 01/05/25 08:04 Labs: Laboratory Results - last 48 hr 01/05/25 14:52 Levetiracetam 13.1 Medications Medications Current Medications Acetaminophen (Acetaminophen 325 Mg Tablet) 650 mg PO Q6H PRN PRN Reason: Headache/Pain, Scale 1-10 Last Admin: 01/09/25 16:59 Dose: 650 mg Al Hydroxide/Mg Hydroxide (Magnesium Hydrox/Alum Hydrox 30 Ml Oral.Susp) 30 ml PO Q6H PRN PRN Reason: Heartburn/Nausea Clonidine HCl (Clonidine Hcl 0.1 Mg Tablet) 0.1 mg PO Q4H PRN; Protocol PRN Reason: moderate anxiety Last Admin: 01/09/25 13:21 Dose: 0.1 mg Doxycycline Monohydrate (Doxycycline Monohydrate 100 Mg Capsule) 100 mg PO BID [facility] Stop: 01/11/25 13:14 Last Admin: 01/09/25 20:43 Dose: 100 mg Guanfacine HCl (Guanfacine Hcl Er 2 Mg Tab.Er.24h) 2 mg PO DAILY [facility] Last Admin: 01/09/25 08:30 Dose: 2 mg Hydroxyzine HCl (Hydroxyzine Hcl 25 Mg Tablet) 25 mg PO Q6H PRN PRN Reason: mild anxiety Last Admin: 01/09/25 17:01 Dose: 25 mg Levetiracetam (Levetiracetam 500 Mg Tablet) 500 mg PO BID [facility] Last Admin: 01/09/25 20:43 Dose: 500 mg Magnesium Hydroxide (Milk Of Magnesia 30 Ml Oral.Susp) 30 ml PO DAILY PRN PRN Reason: Constipation Nicotine (Nicotine 21 Mg Patch.Td24) 21 mg TRANSDERMA DAILY PRN PRN Reason: smoking cessation Nicotine Polacrilex (Nicotine Polacrilex 2 Mg Gum) 4 mg BUCCAL Q2H PRN PRN Reason: Nicotine Cravings Last Admin: 01/09/25 20:44 Dose: 4 mg Olanzapine (Olanzapine 5 Mg Tablet) 5 mg PO TID PRN PRN Reason: agitation Last Admin: 01/09/25 20:44 Dose: 5 mg Sertraline HCl (Sertraline Hcl 50 Mg Tablet) 50 mg PO DAILY [facility] Last Admin: 01/09/25 08:30 Dose: 50 mg Trazodone HCl (Trazodone Hcl 50 Mg Tablet) 50 mg PO BEDTIME [facility] Last Admin: 01/09/25 20:43 Dose: 50 mg Trazodone HCl (Trazodone Hcl 50 Mg Tablet) 50 mg PO BEDTIME PRN PRN Reason: Insomnia Last Admin: 01/08/25 22:37 Dose: 50 mg Triamcinolone Acetonide (Triamcinolone Acet 0.1% Lotion 60 Ml Bottle) 1 appl TOPICAL TID PRN PRN Reason: psoriasis Last Admin: 01/08/25 22:32 Dose: 1 appl Allergies Allergies Allergy/AdvReac Type Severity Reaction Status Date / Time apple (APPLE) Allergy Unknown ANAPHYLAXIS Verified 01/03/25 15:54 pollen extracts (POLLEN) Allergy Unknown SNEEZING Verified 01/03/25 15:54 Assessment & Plan Assessment & Plan (1) Anxiety: Status: Acute Code(s): F41.9 - Anxiety disorder, unspecified (2) Seizure disorder: Status: Acute Code(s): G40.909 - Epilepsy, unspecified, not intractable, without status epilepticus (3) Drug addiction: Status: Acute Code(s): F19.20 - Other psychoactive substance dependence, uncomplicated (4) Homeless: Status: Acute Code(s): Z59.00 - Homelessness unspecified Plan Pt is a 34 yo male with hx of anxiety and substance abuse (pills), Psoriasis, Seizure disorder on Keppra, who presents for overdose what he thought was clonazepam, but he's not sure exactly (utox cannabis only). In ED he vaguely endorsed but now says he took pills just to get high... Says he just said SI to get admitted but that he is anxious and needs help; says he is addicted to pills and buys percs, adderall, klonopin.. He laments i keep getting fired because of the pills...if I'm stressed at work, i take a bunch of pills and then go back to work but then fall asleep. Also says my mom 2 years ago and i'm still traumatized by that... Says he has moments of depression but they are short lived. Denies any alcohol use. Formulation/Clinical reasoning: pt endorses much anxiety that impedes function and for which he has few coping skills. Seems to deny depressive episodes. No SI and said just to gain admission; but pt can benefit from admission Last admission had Seizure, now on Keppra Had started patient on Zoloft...this might be helpful for anxiety-it is low risk for lowering seizure threshold, but since his symptoms are more anxiety than depression, will try Intuniv first 01/06/25: Patient reported that he slept well last night, appetite is okay. Reports anxiety and depression. He is pleasant and cooperative, logical, reasonable. However appears to be minimize of his substance use. He overdose on unknown medication at the parking lot that he got from his friend. Patient is receptive to the plan of medication, starts sertraline 25 mg x1 this morning we plan to increase up to 50 mg tomorrow. Scheduled trazodone at bedtime for sleep Keppra level tomorrow. Patient reports that he is very motivated to get a job so that he can be around his daughter. He is frustrated that he has no where to stay, and when he was told to see if he wants to go to [facility], he got so angry about it and he does not want to live away from his daughter. He states that his daughter is his everything, and she means a lot him. Patient reported that he developed seizure disorder after his mom passed 2 years ago. Reports that losing his mom is a big stress for him. Observed visible and attended groups, tolerate well with other peers who is intrusive being around him. Denies safety concerns. Review with patient regarding medication available for him, and PRNs cream for his psoriasis. No behavior issues but can be impulsive. Visit with dad which is depressing Zoloft 25mg x1 now. Increased zoloft 50mg on 01/07/25. Scheduled trazodone 50mg at HS for insomnia Keppra level on 01/07/25. 01/07/25: Sleep is better.No issues with appetite. Irritable on phone with dad which seem triggered him or his baseline is irritable and impulsive. Continue to educate and encourage patent to avoid the peer who is poor boundaries. Patient can be impulsive. Denies side effects from meds. Denies safety concern, visible, attended groups. Continue with tx plan. Pending keppa level. Will increase Intuniv to 2mg in the AM 01/08/25: Patient slept well, compliant with medications. Denies side effect. Visible, pleasant and cooperative upon approach. Deny craving for any substances, denies any safety concerns. Can be impulsive, but in better control. Mostly irritable on the phone with his father. Tolerate with medication well, having Intuniv increase. Continue to monitor for vital signs and effectiveness. 01/09 pt reports anxiety and depression are a little better; Zoloft recently raised to 50mg; will titrate slowly given seizure disorder. pt continues to have pain, left side of torso; advertising writer examined and point tenderness on 2 places on ribs; imaging negative Plan: cv q15 Increased Intuniv 2mg daily for anxiety and impulsivity Zoloft 50mg; will titrate CCC consult placed continued Doxy 100mg BID for 6 more days; pt recently started on in [facility] and finished 4 days of 10 day course (discussed w/ patient) last dose on 01/11. *pt can get verbal abusive to staff: Low threshold for administrative discharge...: 01/06/25: no behavior issues. Patient educated on: diagnosis, medication risk/benefits, substance abuse and medical condition Informed Consent: understands Reason for continued inpatient stay Substantial Risk for: stable for discharge Time Spent With Patient Time: Total time managing care of this patient today ____ minutes.
[2025-01-10 08:00] VITALS: BP 102/55; PULSE 79; RESP 18; TEMP 36.2; O2SAT 98
[2025-01-10] MEDS: Triamcinolone Acet 0.1% Lotion 60 ML BOTTLE 1 APPL TOPICAL (08:00)
[2025-01-10] MEDS: guanFACINE HCl ER 2 MG TAB.ER.24H PO (08:27)
[2025-01-10] MEDS: Triamcinolone Acet 0.1 % Oint 15 GM TUBE 1 APPL TOPICAL ×3 (11:15→21:08)
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
[2025-01-10 20:00] VITALS: BP 112/73; PULSE 66; RESP 18; TEMP 36.3; O2SAT 100
[2025-01-10 20:13] LABS: Levetiracetam Keppra 9.2 mcg/mL (6.0-46.0)
[2025-01-11 08:00] VITALS: BP 97/60; PULSE 83; RESP 18; TEMP 36.6; O2SAT 98
[2025-01-11] MEDS: Triamcinolone Acet 0.1 % Oint 15 GM TUBE 1 APPL TOPICAL ×2 (08:02→20:41)
[2025-01-11] MEDS: guanFACINE HCl ER 2 MG TAB.ER.24H PO (08:20)
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
[2025-01-11 16:45] VITALS: BP 109/70
--- NOTE | 2025-01-11 18:03 | PC.NURSE ---
[facility] OUTPATIENT RECOVERY SUPPORT CONSULT NOTE: Met on 01/09/25? with Artur? who was alert, oriented and cooperative to provide recovery support and outpatient support options. Artur shared his struggles with substances and had met on Saturday 01/06 as well as set up a MAT intake with [facility] staff- verified intent to follow through with MAT. Will follow up with provider and social work to verify discharge timing and continuity of care. AA meeting guide and literature.?
[2025-01-11 20:00] VITALS: BP 111/71; PULSE 65; RESP 18; TEMP 37; O2SAT 99
[2025-01-12 06:57] VITALS: BP 118/68
[2025-01-12 08:00] VITALS: BP 100/57; PULSE 65; TEMP 37.4; O2SAT 98
[2025-01-12] MEDS: guanFACINE HCl ER 2 MG TAB.ER.24H PO (09:05)
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
[2025-01-12 20:00] VITALS: BP 110/72; PULSE 68; RESP 18; TEMP 37.1; O2SAT 96
[2025-01-12] MEDS: Triamcinolone Acet 0.1 % Oint 15 GM TUBE 1 APPL TOPICAL (20:31)
[2025-01-12 22:03] VITALS: BP 116/64
[2025-01-13] MEDS: guanFACINE HCl ER 2 MG TAB.ER.24H PO (08:52)
[2025-01-13 10:38] VITALS: BP 108/56; PULSE 64; TEMP 36.3; O2SAT 99
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
[2025-01-13 20:37] VITALS: BP 126/84
[2025-01-13 21:14] VITALS: BP 126/84; PULSE 90; RESP 18; TEMP 36.6; O2SAT 96
[2025-01-14 08:00] VITALS: BP 103/61; PULSE 65; TEMP 36.1; O2SAT 97
[2025-01-14] MEDS: guanFACINE HCl ER 2 MG TAB.ER.24H PO (08:56)
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
[2025-01-14] MEDS: Triamcinolone Acet 0.1 % Oint 15 GM TUBE 1 APPL TOPICAL (13:06)
[2025-01-14 20:28] VITALS: BP 113/66
[2025-01-14 20:54] VITALS: BP 113/66; PULSE 70; RESP 16; TEMP 36.9; O2SAT 99
[2025-01-15 08:14] VITALS: BP 101/69; PULSE 70; TEMP 36.1; O2SAT 99
[2025-01-15] MEDS: guanFACINE HCl ER 2 MG TAB.ER.24H PO (09:14)
[2025-01-15] MEDS: Triamcinolone Acet 0.1 % Oint 15 GM TUBE 1 APPL TOPICAL (09:15)
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
[2025-01-15 20:00] VITALS: BP 154/93; PULSE 78; RESP 18; TEMP 36.7; O2SAT 98
[2025-01-16 08:00] VITALS: BP 107/67; PULSE 67; TEMP 36.9; O2SAT 99
[2025-01-16] MEDS: guanFACINE HCl ER 2 MG TAB.ER.24H PO (08:24)
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
[2025-01-16 11:53] VITALS: BP 110/70
[2025-01-16] MEDS: Triamcinolone Acet 0.1 % Oint 15 GM TUBE 1 APPL TOPICAL (11:55)
[2025-01-16] MEDS: Naloxone HCl Nasal TAKE HOME 4 MG SPRAY 8 MG NOSTRILALT (15:50)
== END 2025-01-16 16:09 | disposition home or self-care (01) | DRG 756 ==
LOC: HO.ED 21:06 → HO.PM5 01-04 13:37
PROVIDERS: Emergency Medicine; Nurse Practitioner Family; Nurse Practitioner Psychiatric/Mental Health; Admitting Provider Psychiatry & Neurology Psychiatry; Emergency Provider Emergency Medicine; Visit Provider Psychiatry & Neurology Psychiatry
DX: F41.9 Anxiety disorder, unspecified (principal); G40.909 Epilepsy, unspecified, not intractable, without status epilepticus; R45.851 Suicidal ideations; F17.210 Nicotine dependence, cigarettes, uncomplicated; Z59.02 Unsheltered homelessness; Z71.6 Tobacco abuse counseling; F19.90 Other psychoactive substance use, unspecified, uncomplicated; F10.91 Alcohol use, unspecified, in remission; Z79.899 Other long term (current) drug therapy
CPT/HCPCS: 36415; 80048; 80053; 80061; 80076; 80143; 80177; 80179; 80307; 81003; 82803; 83036; 83735; 85025; 93005; 99285; S9485

== ENCOUNTER → 2025-01-03 15:42 | Outpatient (BNV) | payer OTHER, SELFPAY | PROVIDERS: Emergency Provider Emergency Medicine; Visit Provider Internal Medicine Cardiovascular Disease | DX: T50.902A Poisoning by unspecified drugs, medicaments and biological substances, intentional self-harm, initial encounter (principal) | CPT/HCPCS: 93010 ==

== ENCOUNTER → 2025-01-04 13:28 | Outpatient (BNV) | payer OTHER, SELFPAY | PROVIDERS: Admitting Provider Psychiatry & Neurology Psychiatry; Emergency Provider Emergency Medicine; Visit Provider Nurse Practitioner Family | DX: Z02.2 Encounter for examination for admission to residential institution (principal) | CPT/HCPCS: 99429 ==

== ENCOUNTER → 2025-01-04 13:28 | Outpatient (BNV) | payer OTHER, SELFPAY | PROVIDERS: Admitting Provider Psychiatry & Neurology Psychiatry; Emergency Provider Emergency Medicine; Visit Provider Psychiatry & Neurology Psychiatry | DX: F19.20 Other psychoactive substance dependence, uncomplicated (principal); F41.9 Anxiety disorder, unspecified; G40.909 Epilepsy, unspecified, not intractable, without status epilepticus; Z59.00 Homelessness unspecified | CPT/HCPCS: 90792; 99231; 99232 ==

== ENCOUNTER 2025-01-25 14:33 | Outpatient (AMB) | payer OTHER, SELFPAY ==
--- NOTE | 2025-01-25 14:31 | A.OFFVIS_ITS ---
Vital Signs 01/25/25 14:39 Height 5 ft 5 in Weight 141 lb BMI 23.5 Pulse 80 Pulse Source Pulse Oximeter Pulse Oximetry (%) 97 Oxygen Delivery Method Room Air Intake Visit Reasons: MAT intake Allergies apple (APPLE) Allergy (Unknown, Verified 01/25/25 14:41) ANAPHYLAXIS pollen extracts (POLLEN) Allergy (Unknown, Verified 01/25/25 14:41) SNEEZING HPI HPI MAT intake: Details: History of Present Illness The patient is a 34-year-old male presenting with alcohol use disorder. Recently, he underwent psychiatric hospitalization due to concerns related to substance use and suicidal ideation, discharged on 01/16. His substance use includes street Percocet and cannabis, which were confirmed through urine toxicology at the time of admission. Compounding his substance use disorder, he has a seizure disorder managed with levetiracetam. He also has anxiety for which he takes clonidine, hydroxyzine, sertraline, and trazodone. His stressors include the of his mother two years ago and work-related tensions. His polysubstance use behavior includes the acquisition of medications such as clonidine and Adderall without prescription authority. Review of Systems - Neurological: Reports seizures in the past. - Psychiatric: Reports anxiety and previous suicidal ideation. - Dermatological: Reports a history of psoriasis. - Substance Use: Reports polysubstance use, including alcohol, street Percocet, cannabis, and non-prescribed medications. Physical Exam - Vitals- Stable. - General- Appears comfortable. - Respiratory- Breathing comfortably. - Cardiovascular- Regular rate and rhythm. Results - Labs: Urine toxicology indicated cannabis use during recent psychiatric admission. Plan Patient was informed and verbally consented to the use of an ambient scribe for clinic note documentation during this visit. 1. Alcohol use, unspecified, uncomplicated F10.90 The patient will continue with counseling and support for abstinence. Suboxone is not recommended at present due to concerns regarding his seizure disorder. Monitoring and further psychiatric follow-up as needed. 2. Seizure Disorder Levetiracetam 500 mg BID will be continued for seizure control. Continue to monitor for seizure activity and side effects. 3. Polysubstance Use Disorder Counseling continued, with emphasis on avoiding non-prescribed medications. Monitoring of substance use and provision of education on risks associated with polysubstance use. 4. Psoriasis Psoriasis management to be continued per previous dermatology recommendations. Discussion Notes During our discussion, I emphasized the importance of maintaining engagement with counseling services, particularly given the patient's polysubstance use disorder and concerns regarding mixing medications with his seizure disorder. We explored the current treatment with levetiracetam, and the patient's apprehension about Suboxone was acknowledged. I encouraged him to continue with current psychiatric supports, considering the stressors reported. He understands the importance of abstaining from unauthorized medications and continuing to manage his psoriasis through dermatology. Medical Decision Making The patient's alcohol use disorder and polysubstance use are of major concern, necessitating ongoing psychiatric and counseling support. Given his seizure disorder, treatment with levetiracetam continues to be appropriate, with careful consideration given to his hesitancy around using Suboxone. The approach emphasizes stable medication for seizures and educational efforts for stress management to aid in reducing reliance on substances. Psoriasis management continues with specialist oversight due to its potential impact on quality of life. Patient Instructions - Continue counseling sessions regularly. - Keep taking levetiracetam as prescribed. - Avoid use of any non-prescribed medications. - Follow up with psychiatry and counseling services as recommended. - Manage stress to prevent substance use. - Seek immediate help if experiencing suicidal thoughts or worsening psychological symptoms. [facility] Medical History (Updated 01/24/25 @ 00:00 by Dave Miller) Drug overdose Alcohol use disorder Homeless Drug addiction Anxiety Seizures Eczema Asthma Surgical History Hx of appendectomy Social History Household Members: None Household Members Other:: homeless Housing: Homeless Do you presently have visiting nurse or other home services: No Alcohol intake: current Alcohol intake frequency: a few times a month Alcohol type: beer and hard liquor Comment: 1:1 sitter Patient Tobacco Use Status: Current someday Tobacco user Tobacco use type: Cigarette Cigarettes Per Day: 3 e-Cigarette/Vaping Use: Never Used Second Hand Smoke Exposure: No Substance Use Type: Crack/Cocaine service: No Sexual orientation: Straight/Heterosexual Physical Exam Vital Signs: Last Vital Signs Pulse 80 01/25/25 14:39 Pulse Ox 97 01/25/25 14:39 Oxygen Delivery Method Room Air 01/25/25 14:39 BMI result Body Mass Index 23.5 Assessment & Plan Assessment & Plan (1) Alcohol use disorder: Code(s): F10.90 - Alcohol use, unspecified, uncomplicated Category: Medical Plan: per chart Orders: Referrals Counseling Referral F10.90 - Alcohol use, unspecified, uncomplicated Coding Level of Care Code New Pt Level 4 (76424) Diagnoses Alcohol use disorder F10.90
[2025-01-25 14:39] VITALS: PULSE 80; O2SAT 97; BMI 23.5
--- OUTSIDE RECORDS SUMMARY | 2025-01-25 15:44 | XMS_ITS | Encounter Summary ---
Author Organization [facility] Address [address] [place] [id number] Phone Care Team Providers Care Vice President Global Digital Marketing Name Role Phone Kenton Galaviz MD Primary Care Provider Unavailabl e Encounter Details Date Type Department Care Team (Late st Contact Info) Description 07/26/2009 Documentation [facility] [address] [place] [address] Family Medicine, Physician [address] [place], [place] [phone] Social History Tobacco Use Types Packs/Day Years [...] on filedocumented in this encounter Care Teams Vice President Global Digital Marketing Relationship Specialty Start Date End Date Kenton Galaviz MD PCP - General 12/05/16 documented as of this encounter
--- OUTSIDE RECORDS SUMMARY | 2025-01-25 15:45 | XMS_ITS | Encounter Summary ---
Author Organization [facility] Address [address] [place] [phone] Phone Care Team Providers Care Ampoule Inspector Name Role Phone Kenton Galaviz MD Primary Care Provider Unavailabl e Encounter Details Date Type Department Care Team (Late st Contact Info) Description 11/21/2010 Document[place] [facility] [place] [address] [place] [address] Family Medicine, Physician [address] [place], [place] [phone] Social History Tobacco Use Types Packs/Day Years [...] on filedocumented in this encounter Care Teams Ampoule Inspector Relationship Specialty Start Date End Date Kenton Galaviz MD PCP - General 12/05/16 documented as of this encounter
--- OUTSIDE RECORDS SUMMARY | 2025-01-25 15:45 | XMS_ITS | Encounter Summary ---
Author Organization [facility] Address [address] [place] [address] Phone Care Team Providers Care Security Researcher Name Role Phone Kenton Galaviz MD Primary Care Provider Unavailabl e Encounter Details Date Type Department Care Team (Late st Contact Info) Description 10/19/2009 Documentation [facility] [place] [facility] [address] [place] [address] Family Medicine, Physician [address] [place], [place] [phone] Social History Tobacco Use Types Packs/Day Years [...] on filedocumented in this encounter Care Teams Security Researcher Relationship Specialty Start Date End Date Kenton Galaviz MD PCP - General 12/05/16 documented as of this encounter
--- OUTSIDE RECORDS SUMMARY | 2025-01-25 15:46 | XMS_ITS | Encounter Summary ---
Author Organization [facility] Address [address] [place] [address] Phone Care Team Providers Care Fern Gatherer Name Role Phone Kenton Galaviz MD Primary Care Provider Unavailabl e Encounter Details Date Type Department Care Team (Late st Contact Info) Description 12/11/2016 Conversion Encounter [facility] - [address] [address] Social History Tobacco Use Types Packs/Day Years [...] on filedocumented in this encounter Care Teams Fern Gatherer Relationship Specialty Start Date End Date Kenton Galaviz MD PCP - General 12/05/16 documented as of this encounter
--- OUTSIDE RECORDS SUMMARY | 2025-01-25 15:46 | XMS_ITS | Clinical Summary ---
Author Organization [facility] Address [address] [place] [phone] Phone Care Team Providers Care Schedule Clerk Name Role Phone Kenton Galaviz MD [...] age to complete this topic Care Teams Schedule Clerk Relationship Specialty Start Date End Date Kenton Galaviz MD PCP - General 12/05/16
== END 2025-01-25 15:09 | disposition home or self-care (01) ==
PROVIDERS: Visit Provider Internal Medicine
DX: F10.90 Alcohol use, unspecified, uncomplicated (principal)
CPT/HCPCS: 99204

== ENCOUNTER → 2025-01-25 14:33 | Outpatient (BNVA) | payer OTHER, SELFPAY | PROVIDERS: Visit Provider Internal Medicine | DX: F10.90 Alcohol use, unspecified, uncomplicated (principal) | CPT/HCPCS: 99202 ==

== ENCOUNTER 2025-02-22 14:35 | Outpatient (AMB) | payer OTHER, SELFPAY ==
--- OUTSIDE RECORDS SUMMARY | 2005-05-13 12:42 | XMS_ITS | Continuity of Care Document ---
Author Organization [facility] Address [address] [place] [address] Phone Care Team Providers Care Oracle Manager Name Role Phone Macario Biggs MD Unavailable Unavailable Advance Directives Directive Yes / No Effective Date File Name No Information Encounters Encounter Description Practice Location Reason(s) For Visit Diagnoses Date Provider Providers Copied on Encounter [facility], [address], [place], [id number], tel:[phone] [facility] Office 93 No Information Dian Sorto. [address] [facility], [address], [place], [place], [facility], . tel:[phone] Family History Family Member Type Diagnosis Age At Onset No Information Payers Payer name Insurance type Covered democrat ID Authoriza tion(s) No Information Social History Type Description Quantity Date Captured Comments Sex Male Smoking Status No Information Chief Complaint And Reason For Visit No Information Reason For Referral Reason For Referral No Information History Of Present Illness Encounter Date Complaint History Of Prese nt Illness No Information Functional Status Date Functional Assessmen t No Information Instructions Date Instruction Additional Infor mation No Information Assessments Type Assessment Date No Information Patient Care Teams Name Effective Dates (start - stop) Status Members No Information
--- NOTE | 2025-02-22 14:43 | MHC.PC.OV ---
Vital Signs 02/22/25 14:48 Height 5 ft 4.57 in Weight 134 lb 8 oz BMI 22.7 BP 106/64 Blood Pressure Location Lt brachial Position Sitting Pulse 69 Pulse Source Pulse Oximeter Temp 97.3 F Temp Source Temporal Artery Scan Pulse Oximetry (%) 97 Oxygen Delivery Method Room Air Intake Visit Reasons: Establish Care Intake Note: Patient is a new patient here to establish care for Anxiety, Insomnia, ADD, Seizure disorder, Drug addiction, Alcohol use disorder. Transferring care from Unknown. Medical records have not been requested and have not received. Janitorial Assistant Required: No Trade Sales Assistant: Not Required per policy Accompanied by: Self / Same As Patient Allergies apple (APPLE) Allergy (Unknown, Verified 02/22/25 14:47) ANAPHYLAXIS pollen extracts (POLLEN) Allergy (Unknown, Verified 02/22/25 14:47) SNEEZING Medication List - Last Reconciled 02/22/25 by Shivam Stone MD clonidine HCl 0.1 mg See Protocol PO Q4H PRN 30 days guanfacine ER 2 mg PO DAILY 30 days hydroxyzine HCl 25 mg PO Q6H PRN 30 days levetiracetam 500 mg PO BID 30 days nicotine (polacrilex) 4 mg buccal Q2H PRN 30 days sertraline 50 mg PO DAILY 30 days sertraline 25 mg PO DAILY 30 days trazodone 50 mg PO BEDTIME PRN 30 days triamcinolone acetonide 0.1% 1 appl topical TID PRN 30 days Tobacco use date assessed: 02/22/25 Dental Screening Dental Screen Date: 02/22/25 Did you have a dental visit in the last 12 months?: No Did you have a dental problem in the last 6 months where you did not have access to dental care?: No Was dental information given to patient?: No HPI HPI Comments History of Present Illness Details 34-year-old male with a past medical history of seizure disorder, anxiety, and substance misuse including Percocet, Adderall and clonazepam who is presenting to establish care. He was recently discharged from the hospital after suspected Klonappin overdose vs alcohol withdrawal. The patient was discharged on 01/05/2025. His W-U was significant for mildly elevated AST and ALT but otherwise his CMP did not show any abnormalities. His EKG showed a QTc of 421 with no ischemic changes. His Tox screen was positive for MJ but not for Benzos. Earlier in November the patient was admitted [facility] the [facility] for benzos overdose vs alcohol detox. During this admission the patient developed a tonic clonic seizure and he was transferred to the [facility]. He was, also, started on zoloft to help manage his anxiety and depression. The patient was also prescribed Clonidine (90 pills) and [facility]60 pills[facility]. The patient did not have any follow-up with psychiatry or addiction medicine since being dischared from the hospital. Today he presented establish primary care and for medication refills. He has a history of heavy alcohol consumption, which led to a three-week hospitalization, and he has been abstinent from alcohol since his discharge. The patient reports running out of his anxiety medication and using marijuana as a substitute, admitting to smoking before the visit. He has a history of a seizure disorder, with his last seizure occurring during his recent hospitalization. He has a supply of his seizure medication but does not currently see a seizure specialist. All of his medications were prescribed during his hospital stay. 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 He reports that a previously prescribed ointment was not effective, and he has been using another ointment obtained from a friend with better results. The patient has successfully quit smoking cigarettes. He states he has never received any vaccinations, including the flu shot or COVID-19 vaccine, citing a fear of needles. [facility] Medical History (Updated 02/22/25 @ 21:43 by Shivam Stone MD) Drug overdose Alcohol use disorder Homeless Drug addiction Anxiety Seizures Eczema Asthma Surgical History Hx of appendectomy Family History (Updated 02/22/25 @ 14:58 by VERNELL Oscar) Other Mental health disorder Substance use disorder Social History (Updated 02/22/25 @ 14:58 by VERNELL Oscar) Household Members: None Household Members Other:: homeless Housing: Apartment Do you presently have visiting nurse or other home services: No Alcohol intake: never Comment: 1:1 sitter Patient Tobacco Use Status: Former Tobacco user Tobacco use type: Cigarette Cigarettes Per Day: 3 e-Cigarette/Vaping Use: Former Use Second Hand Smoke Exposure: No Substance Use Type: Crack/Cocaine and Marijuana service: No Current occupational status: employed 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 1. Little interest or pleasure in doing things: not at all 2. Feeling down, depressed, or hopeless: not at all 3. Trouble falling or staying asleep, or sleeping too much: not at all 4. Feeling tired or having little energy: not at all 5. Poor appetite or overeating: not at all 6. Feeling bad about yourself - or that you are a failure or have let yourself or your family down: not at all 7. Trouble concentrating on things, such as reading the newspaper or watching television: not at all 8. Moving or speaking so slowly that other people could have noticed. Or the opposite - being so fidgety or restless that you have been moving around a lot more than usual: not at all 9. Thoughts that you would be better off or of hurting yourself in some way: not at all Total score: 0 Depression Screening Interpretation: Negative Depression Screening Done: Yes Source: Developed by Drs. Seun Finley, Yenny Baez, Bi Urena and colleagues, with an educational taylor from [employer]. Thrive Questionnaire Date Thrive assessed: 12/15/24 AUDIT C Alcohol Use Questionnaire (AUDIT-C) 1. How often do you have a drink containing alcohol?: Never Total Score: 0 ARON-7 AMB Questionnaire ARON-7 Date ARON - 7 assessed: 02/22/25 Feeling nervous, anxious, or on edge: 0 = Not at all Not being able to stop or control worryin = Not at all Worrying too much about different things: 0 = Not at all Trouble relaxin = Not at all Being so restless that it is hard to sit still: 0 = Not at all Becoming easily annoyed or irritable: 0 = Not at all Feeling afraid as if something awful might happen: 0 = Not at all Total ARON-7 score (0-4 normal; 5-9 mild; 10-14 moderate; 15-21 severe): 0 Source: Developed by Drs. Seun Finley, Yenny Baez, Bi Urena and colleagues, with an educational taylor from [employer]. Review of Systems Const Details: As per HPI. Physical exam (Primary Care) Vital Signs: Last Vital Signs Temp 97.3 F 02/22/25 14:48 Pulse 69 02/22/25 14:48 BP 106/64 02/22/25 14:48 Pulse Ox 97 02/22/25 14:48 Oxygen Delivery Method Room Air 02/22/25 14:48 BMI result Body Mass Index 22.7 Tobacco/Smoking Status: Tobacco use Status Tobacco use date assessed 02/22/25 02/22/25 15:00 Patient Tobacco Use Status Former Tobacco user 02/22/25 15:00 Tobacco use type Cigarette 02/22/25 14:58 e-Cigarette/Vaping Use Former Use 02/22/25 15:00 PHQ-9: PHQ-9 Score PHQ-9: Total score 0 02/22/25 15:21 Depression Screening Interpretation: Negative Thrive Assessment: Date of Thrive Assessment Date Thrive assessed 12/15/24 02/22/25 14:43 Const Other: Pertinent findings are in BOLD GENERAL APPEARANCE NAD, activity normal for age, well developed/ well nourished, no cyanosis, pallor, or diaphoresis. EYES red conjunctiva. EARS/NOSE/THROAT Mucous membranes moist, nares normal, lips/teeth normal uvula midline without oral pharyngeal erythema, exudate or swelling TMs normal bilaterally. No lymphangitis/lymphedema. HEAD/NECK normocephalic atraumatic, no facial trauma, neck is supple. RESPIRATORY respiratory effort normal, speaks in full sentences, no tripod position, no accessory muscle use. Lungs clear to auscultation without rhonchi, wheezes, rales CARDIAC Regular rate and rhythm, no edema. ABDOMINAL Soft, ND/NT. No evidence of fluid wave. No pulsatile masses on exam, rebound tenderness, Mcghee sign or pain over Mcburney's point. MUSCLES/EXTREMITIES No abnormal range of motion, no swelling. SKIN Warm, pink and dry. No rashes, dermatoses, petechiae or lesions. NEUROLOGICAL Speech is clear and appropriate. Normal level of consciousness. Gait and coordination are normal. 5/5 strength in all extremities. PSYCH Normal mood and affect. Judgement/competence is appropriate Coding Level of Care Code New Pt Level 4 (06648) New Pt Prev Care 18-39yr(16361 Diagnoses Seizure disorder G40.909 Psoriasis L40.9 Healthcare maintenance Z00.00 Drug addiction F19.20 Alcohol use disorder F10.90 Anxiety F41.9 Time Spent (min) 40 Assessment & Plan Assessment & Plan (1) Seizure disorder: Comment: unclear if related to Alcohol use or primary seizure disorder (Epilepsey) Code(s): G40.909 - Epilepsy, unspecified, not intractable, without status epilepticus Category: Medical Plan: Patient has enough keppra at home. Neurology referral placed. (2) Psoriasis: Code(s): L40.9 - Psoriasis, unspecified Category: Medical Plan: Patient reports Triamcinolone Acetonide has not been working in the past. He reports trying Mometasone 0.1% from a friend and he found it helpful. Mometasone 0.1% was prescribed. Dermatology referral for further treatment of Psoriasis and eczema. (3) Healthcare maintenance: Code(s): Z00.00 - Encounter for general adult medical examination without abnormal findings Category: Medical Plan: CBC, CMP, Lipid panel, A1C, TSH w T4, vit D. Ordered. Shingles 2 doses when >50 yo. At 50. COVID: two doses. We will address next visit as today's visit was mainly focused on the patient's psych history. Pneumococcal: >50 yo. 18-49 with CKD, lung disease, weakened immune system, Heart disease, DM, cochlear implant. Flu vaccine: We will address next visit as today's visit was mainly focused on the patient's psych history. Tdap: every 10 years. We will address next visit as today's visit was mainly focused on the patient's psych history. Colonoscopy: 45-75. Denies any family history of colon cancer. AAA: 65 -75. At 65. CT lun - 80. Patient has been not smoking for 3 years. We will continue to re-assess until he is 51. PSA: 50 -70 every two years. At 50. HIV: Ordered today. HBV: Ordered today. HCV: Ordered today. (4) Drug addiction: Comment: buys and uses various pills though never sure what they are Code(s): F19.20 - Other psychoactive substance dependence, uncomplicated Category: Medical Plan: - Prior history of benzos overdose and alcohol use disorder c/b withdrawal seizure. - Patient has been sober since recent hospitalization. - Nurse navigator referral placed to assist with making sure the patient is safe and did not relapse. - Addiction medicine referral placed to assest with maintaining sobriety. (5) Alcohol use disorder: Code(s): F10.90 - Alcohol use, unspecified, uncomplicated Category: Medical Plan: - The patient reports sobriety since his recent hospitalization for heavy drinking. - A referral to Addiction Medicine will be placed for continued support. - The patient was encouraged to maintain sobriety and engagement in positive activities. - Clonidine and Hydroxyzine were prescribed in the hospital 01/16 by psychiatry. He did not have any follow-up with Addiction medicine or psychiatry. The patient requested refills as he is running out of the medication. I advised the patient on the importance of seeing addiction medicine and he was agreable. I refilled the patient's medications since there is a high risk of severe hypertension and cardiac complications if Clonidine is stopped abruptly. - Hydroxyzine was also refilled as it is a better substitute of Benzodiazepine. Patient aware of the importance of seeing addiction medicine. - Nurse navigator referral added to assist with scheduling the patient with addiction medicine and psychiatry. (6) Anxiety: Code(s): F41.9 - Anxiety disorder, unspecified Category: Medical Plan: - The patient reports using marijuana for anxiety as he is out of his prescribed medication. - Sertraline was refilled, but the patient was advised to wait for a psychiatric evaluation for management. - Patient was taking Sertraline as needed. I advised the patient that the medication would work best if it is taken on a daily basis. - A referral to Psychiatry will be placed. Plan I established care with the patient and acknowledged his candor regarding his recent marijuana use, which he stated was for anxiety due to running out of his prescribed medication. We discussed his history of alcohol abuse and recent sobriety, and I offered my support for his continued recovery. I refilled his prescriptions but advised him to follow up with specialists for ongoing management. I explained that I would refer him to Psychiatry, Addiction Medicine, Neurology for his seizure history, and Dermatology for his skin conditions. I ordered comprehensive labs, including screenings for Hepatitis C and HIV, to which he consented. We scheduled a follow-up visit in one month to review results and discuss further health maintenance topics, such as vaccinations, which he declined today due to a fear of needles. Orders: Orders UA and rflx microscopic Today Z00.00 - Encounter for general adult medical examination without abnormal findings Hepatitis B Surface Antigen Today Z00.00 - Encounter for general adult medical examination without abnormal findings Hepatitis B Core Antibody Today Z00.00 - Encounter for general adult medical examination without abnormal findings Complete Blood Count no Diff Today Z00.00 - Encounter for general adult medical examination without abnormal findings Comprehensive Met. Panel Today Z00.00 - Encounter for general adult medical examination without abnormal findings Hemoglobin A1c Today Z00.00 - Encounter for general adult medical examination without abnormal findings Hepatitis C Antibody Reflex Today Z00.00 - Encounter for general adult medical examination without abnormal findings HIV Ab/Ag Today Z00.00 - Encounter for general adult medical examination without abnormal findings Vitamin B12 and Folate Today D64.9 - Anemia, unspecified, Z00.00 - Encounter for general adult medical examination without abnormal findings Vitamin D 25-OH Total Today Z00.00 - Encounter for general adult medical examination without abnormal findings TSH reflex Free T4 Today Z00.00 - Encounter for general adult medical examination without abnormal findings Lipid Panel Today Z00.00 - Encounter for general adult medical examination without abnormal findings Hepatitis B Surface Antibody Today Z00.00 - Encounter for general adult medical examination without abnormal findings Referrals Neurology Referral G40.909 - Epilepsy, unspecified, not intractable, without status epilepticus Dermatology Referral L40.9 - Psoriasis, unspecified Psychiatry Referral F10.90 - Alcohol use, unspecified, uncomplicated Addiction Medicine Referral F10.90 - Alcohol use, unspecified, uncomplicated, F19.20 - Other psychoactive substance dependence, uncomplicated, F41.9 - Anxiety disorder, unspecified Nurse Navigator Referral F10.90 - Alcohol use, unspecified, uncomplicated, F19.20 - Other psychoactive substance dependence, uncomplicated, F41.9 - Anxiety disorder, unspecified Medications: New mometasone 0.1% 1 appl topical DAILY 45 grams 0RF Refilled clonidine HCl 0.1 mg See Protocol PO Q4H PRN 90 tabs 0RF moderate anxiety 30 days hydroxyzine HCl 25 mg PO Q6H PRN 60 tabs 0RF mild anxiety 30 days guanfacine ER 2 mg PO DAILY 30 tabs 0RF 30 days
[2025-02-22 14:48] VITALS: BP 106/64; PULSE 69; TEMP 36.3; O2SAT 97; BMI 22.7
--- OUTSIDE RECORDS SUMMARY | 2025-02-22 18:55 | XMS_ITS | Encounter Summary ---
Author Organization [facility] Address [address] [place] [address] Phone Care Team Providers Care Investment Banker Name Role Phone Kenton Galaviz MD Primary Care Provider Unavailabl e Encounter Details Date Type Department Care Team (Late st Contact Info) Description 12/11/2016 Conversion Encounter [facility] - [address] [id number] Social History Tobacco Use Types Packs/Day Years [...] on filedocumented in this encounter Care Teams Investment Banker Relationship Specialty Start Date End Date Kenton Galaviz MD PCP - General 12/05/16 documented as of this encounter
--- OUTSIDE RECORDS SUMMARY | 2025-02-22 18:55 | XMS_ITS | Encounter Summary ---
Author Organization [facility] Address [address] [place] [address] Phone Care Team Providers Care Keyseater Operator Name Role Phone Kenton Galaviz MD Primary Care Provider Unavailabl e Encounter Details Date Type Department Care Team (Late st Contact Info) Description 10/19/2009 Documentation [facility] [place] [facility] [address] [place] [address] Family Medicine, Physician [address] [place], [place] [phone] Social History Tobacco Use Types Packs/Day Years [...] on filedocumented in this encounter Care Teams Keyseater Operator Relationship Specialty Start Date End Date Kenton Galaviz MD PCP - General 12/05/16 documented as of this encounter
--- OUTSIDE RECORDS SUMMARY | 2025-02-22 18:55 | XMS_ITS | Encounter Summary ---
Author Organization [facility] Address [address] [place] [address] Phone Care Team Providers Care Importer Exporter Name Role Phone Kenton Galaviz MD Primary Care Provider Unavailabl e Encounter Details Date Type Department Care Team (Late st Contact Info) Description 11/21/2010 Documentation [facility] [place] [facility] [address] [place] [address] Family Medicine, Physician [address] [place], [place] [phone] Social History Tobacco Use Types Packs/Day Years [...] on filedocumented in this encounter Care Teams Importer Exporter Relationship Specialty Start Date End Date Kenton Galaviz MD PCP - General 12/05/16 documented as of this encounter
--- OUTSIDE RECORDS SUMMARY | 2025-02-22 18:55 | XMS_ITS | Encounter Summary ---
Author Organization [facility] Address [address] [place] [address] Phone Care Team Providers Care Inspector Salvage Name Role Phone Kenton Galaviz MD Primary Care Provider Unavailabl e Encounter Details Date Type Department Care Team (Late st Contact Info) Description 07/26/2009 Documentation [facility] [address] [place] [address] Family Medicine, Physician [address] [place], [place] [phone] Social History Tobacco Use Types Packs/Day Years [...] on filedocumented in this encounter Care Teams Inspector Salvage Relationship Specialty Start Date End Date Kenton Galaviz MD PCP - General 12/05/16 documented as of this encounter
--- OUTSIDE RECORDS SUMMARY | 2025-02-22 18:55 | XMS_ITS | Clinical Summary ---
Author Organization [facility] Address [address] [place] [phone] Phone Care Team Providers Care Germ Drier Name Role Phone Kenton Galaviz MD Primary [...] age to complete this topic Care Teams Germ Drier Relationship Specialty Start Date End Date Kenton Galaviz MD PCP - General 12/05/16
== END 2025-02-22 15:27 | disposition home or self-care (01) ==
PROVIDERS: Visit Provider Internal Medicine
DX: G40.909 Epilepsy, unspecified, not intractable, without status epilepticus (principal); F19.20 Other psychoactive substance dependence, uncomplicated; L40.9 Psoriasis, unspecified; F10.90 Alcohol use, unspecified, uncomplicated; F41.9 Anxiety disorder, unspecified

== ENCOUNTER → 2025-02-22 14:35 | Outpatient (BNVA) | payer OTHER, SELFPAY | PROVIDERS: Visit Provider Internal Medicine | DX: G40.909 Epilepsy, unspecified, not intractable, without status epilepticus (principal); F19.20 Other psychoactive substance dependence, uncomplicated; L40.9 Psoriasis, unspecified; F10.90 Alcohol use, unspecified, uncomplicated; F41.9 Anxiety disorder, unspecified; Z00.00 Encounter for general adult medical examination without abnormal findings; D64.9 Anemia, unspecified; Z13.31 Encounter for screening for depression; Z79.899 Other long term (current) drug therapy | CPT/HCPCS: 99202 ==

== ENCOUNTER 2025-03-30 10:36 | Outpatient (AMB) | payer OTHER, SELFPAY ==
--- NOTE | 2025-03-30 11:15 | A.OFFPC_ITS ---
Vital Signs 03/30/25 11:17 Height 5 ft 4.57 in Weight 134 lb 2 oz BMI 22.6 BP 120/80 Blood Pressure Location Lt brachial Position Sitting Respiration 18 Pulse 67 Pulse Source Pulse Oximeter Temp Source Temporal Artery Scan Pulse Oximetry (%) 98 Oxygen Delivery Method Room Air Intake Visit Reasons: f/u DMII/ HTN/ COPD Domestic Violence Advocate Required: No Accompanied by: Self / Same As Patient Allergies apple (APPLE) Allergy (Unknown, Verified 03/30/25 11:18) ANAPHYLAXIS pollen extracts (POLLEN) Allergy (Unknown, Verified 03/30/25 11:18) SNEEZING Medication List - Last Reconciled 03/30/25 by Shivam Stone MD clonidine HCl 0.1 mg See Protocol PO Q4H PRN 30 days hydroxyzine HCl 25 mg PO Q6H PRN 30 days levetiracetam 500 mg PO BID 30 days mometasone 0.1% 1 appl topical DAILY nicotine (polacrilex) 4 mg buccal Q2H PRN 30 days sertraline 50 mg PO DAILY 30 days sertraline 25 mg PO DAILY 30 days trazodone 50 mg PO BEDTIME PRN 30 days Tobacco use date assessed: 03/30/25 Dental Screening Dental Screen Date: 03/30/25 Did you have a dental visit in the last 12 months?: No Did you have a dental problem in the last 6 months where you did not have access to dental care?: No Was dental information given to patient?: No HPI HPI Comments History of Present Illness Details The patient is a 34 year old male with PMH of seizure disorder, anxiety, and substance misuse including alcohol, MJ, Percocet, Adderall and clonazepam, presenting for follow-up on multiple chronic conditions including seizure disorder, anxiety, and depression. He reports that his depression has been worsening lately. He had an alcohol relapse approximately two weeks ago, which he attributes to his severe depression. He has a history of seizure disorder and is running out of his Keppra. A referral to neurology was previously made, but the patient reports he was never contacted for an appointment. He also has psoriasis and requires a refill for his topical ointment, as the previous tube did not last long. The patient previous prescription were sent to [facility] pharmacy. 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 He has not yet completed the labs that were ordered at his prior visit. Last visit, the patient was referred to neurology for his seizure disorder, psychiatry for depression, dermatology, addiction medicine for manegement of substance abuse and management of Clonidine prescription. However the patient was not able to complete these referral as he reports he was never contacted by their office. The patient was contacted by all the offices I referred him to but he did not answer his phone. They also sent him multiple letters by mail. [facility] Medical History Drug overdose Alcohol use disorder Homeless Drug addiction Anxiety Seizures Eczema Asthma Surgical History Hx of appendectomy Family History Other Mental health disorder Substance use disorder Social History Household Members: None Household Members Other:: homeless Housing: Apartment Do you presently have visiting nurse or other home services: No Alcohol intake: never Comment: 1:1 sitter Patient Tobacco Use Status: Former Tobacco user Tobacco use type: Cigarette Cigarettes Per Day: 3 e-Cigarette/Vaping Use: Former Use Second Hand Smoke Exposure: No Substance Use Type: Crack/Cocaine and Marijuana service: No Current occupational status: employed Current occupation: [employer] Sexual orientation: Straight/Heterosexual Cognitive needs: No Hearing needs: No Vision needs: No Questionnaire PHQ-9 Over the last 2 weeks, how often have you been bothered by any of the following problems? 1. Little interest or pleasure in doing things: not at all 2. Feeling down, depressed, or hopeless: nearly every day 3. Trouble falling or staying asleep, or sleeping too much: several days 4. Feeling tired or having little energy: not at all 5. Poor appetite or overeating: not at all 6. Feeling bad about yourself - or that you are a failure or have let yourself or your family down: more than half the days 7. Trouble concentrating on things, such as reading the newspaper or watching television: nearly every day 8. Moving or speaking so slowly that other people could have noticed. Or the opposite - being so fidgety or restless that you have been moving around a lot more than usual: not at all 9. Thoughts that you would be better off or of hurting yourself in some way: not at all Total score: 9 Source: Developed by Drs. Seun Finley, Yenny Baez, Bi Urena and colleagues, with an educational taylor from [facility]. Thrive Questionnaire Date Thrive assessed: 03/30/25 I am a: Patient What is your living situation today?: I have a steady place to live Within the past 12 months, did the food you bought not last and you didn't have the money to get more?: Never true Within the past 12 months, did you worry whether your food would run out before you got money to buy more?: Never true Do you have trouble paying for medicines?: Yes Do you have trouble getting transportation to medical appointments?: Yes Do you have trouble paying your heating and electricity bill?: No Do you have trouble taking care of your child, family member or friend?: No Do you have trouble with day-to-day activities such as bathing, preparing meals, shopping, managing finances, etc.?: No Are you currently unemployed and looking for a job?: No Are you interested in more education?: No Please select the resources that you would like help with: None Currently or been in a relationship where the following occur: No concerns reported THRIVE Score: 1 AUDIT C Alcohol Use Questionnaire (AUDIT-C) 1. How often do you have a drink containing alcohol?: Never Total Score: 0 ARON-7 AMB Questionnaire ARON-7 Date ARON - 7 assessed: 03/30/25 Feeling nervous, anxious, or on edge: 2 = More than half the days Not being able to stop or control worryin = Several days Worrying too much about different things: 1 = Several days Trouble relaxin = Several days Being so restless that it is hard to sit still: 1 = Several days Becoming easily annoyed or irritable: 0 = Not at all Feeling afraid as if something awful might happen: 0 = Not at all Total ARON-7 score (0-4 normal; 5-9 mild; 10-14 moderate; 15-21 severe): 6 Source: Developed by Yenny Davis Nestor, Bi Urena and colleagues, with an educational taylor from [facility]. Review of Systems Const Details: Not done. Physical exam (Primary Care) Vital Signs: Last Vital Signs Pulse 67 03/30/25 11:17 Resp 18 03/30/25 11:17 BP 120/80 03/30/25 11:17 Pulse Ox 98 03/30/25 11:17 Oxygen Delivery Method Room Air 03/30/25 11:17 BMI result Body Mass Index 22.6 Tobacco/Smoking Status: Tobacco use Status Tobacco use date assessed 03/30/25 03/30/25 11:19 Patient Tobacco Use Status Former Tobacco user 03/30/25 11:17 Tobacco use type Cigarette 03/30/25 11:17 e-Cigarette/Vaping Use Former Use 03/30/25 11:17 PHQ-9: PHQ-9 Score PHQ-9: Total score 9 03/30/25 11:28 Thrive Assessment: Date of Thrive Assessment Date Thrive assessed 03/30/25 03/30/25 11:19 Currently or been in a relationship where the following occur: No concerns reported Const Other: Pertinent findings are in BOLD GENERAL APPEARANCE NAD, activity normal for age, well developed/ well nourished, no cyanosis, pallor, or diaphoresis. EYES lids/conjunctiva normal. EARS/NOSE/THROAT Mucous membranes moist, nares normal, lips/teeth normal uvula midline without oral pharyngeal erythema, exudate or swelling TMs normal bilaterally. No lymphangitis/lymphedema. HEAD/NECK normocephalic atraumatic, no facial trauma, neck is supple. RESPIRATORY respiratory effort normal, speaks in full sentences, no tripod position, no accessory muscle use. Lungs clear to auscultation without rhonchi, wheezes, rales CARDIAC Regular rate and rhythm, no edema. ABDOMINAL Soft, ND/NT. No evidence of fluid wave. No pulsatile masses on exam, rebound tenderness, Mcghee sign or pain over Mcburney's point. MUSCLES/EXTREMITIES No abnormal range of motion, no swelling. SKIN Warm, pink and dry. No rashes, dermatoses, petechiae or lesions. NEUROLOGICAL Speech is clear and appropriate. Normal level of consciousness. Gait and coordination are normal. 5/5 strength in all extremities. PSYCH Normal mood and affect. Judgement/competence is appropriate Coding Level of Care Code Est Pt Level 4 (97535) Diagnoses Anxiety F41.9 Drug addiction F19.20 Seizure disorder G40.909 Psoriasis L40.9 Cannabis use disorder F12.90 Time Spent (min) 30 Assessment & Plan Assessment & Plan (1) Anxiety: Code(s): F41.9 - Anxiety disorder, unspecified Category: Medical Plan: - The patient reports worsening depression. - He has been taking sertraline as needed, which is incorrect. - Will stop sertraline and plan to restart it appropriately after confirming his current medication list via the patient portal. - Will prescribe hydroxyzine to be used every 6 hours as needed for depression and anxiety. - Will continue trazodone 50 mg as needed for sleep. - A referral will be placed to Psychiatry. - Nurse navigator to see the patient during his follow-up on 04/24 at 0930. (2) Drug addiction: Comment: buys and uses various pills though never sure what they are Code(s): F19.20 - Other psychoactive substance dependence, uncomplicated Category: Medical Plan: - PMH significant for Adderall, benzos, alcohol, MJ abuse. - The patient reported a recent alcohol relapse about 2 weeks ago due to severe depression. - He is taking clonidine, and the risks of consuming alcohol while on this medication were discussed. - Clonidine 0.1 mg was prescribed to be taken every 4 hours PRN. Although the patient was prescribed this medication while inpatient, the risks of abruptly stopping it are high. For this reason a refill of his prescription was ordered. - An urgent referral to Addiction Medicine was emphasized as high priority. Patient is aware to answer his phone when called. (3) Seizure disorder: Comment: unclear if related to Alcohol use or primary seizure disorder (Epilepsey) Code(s): G40.909 - Epilepsy, unspecified, not intractable, without status epilepticus Category: Medical Plan: - The patient is running out of his seizure medication. - Prescribed Keppra 500 mg twice daily. - Patient requires follow-up with Neurology, and he has been advised to call to schedule an appointment. (4) Psoriasis: Code(s): L40.9 - Psoriasis, unspecified Category: Medical Plan: - The patient needs a refill for his psoriasis cream. - A prescription for topical cream will be sent to his preferred pharmacy. - A referral to Dermatology was made. Patient is aware that he needs to answer his phone to be able to make the appointment. (5) Cannabis use disorder: Code(s): F12.90 - Cannabis use, unspecified, uncomplicated Category: Medical Plan: - The patient currently smokes about one joint per day. - He was counseled on cannabis dependence and withdrawal. - Advised not to stop use completely at this time to avoid withdrawal from multiple substances at once, with the plan to address cannabis cessation after alcohol use is stable. Plan I had a detailed discussion with the patient regarding his multiple ongoing health issues. We reviewed the crucial need for him to engage with several specialists, including Addiction Medicine, Psychiatry, and Neurology, to ensure comprehensive care. I emphasized that the referral to Addiction Medicine is the most urgent priority, given his recent alcohol relapse while on clonidine. \ Patient was contacted multiple times by specialists office but he never answered his phone. Also, multiple mails were sent to his home. Nurse navigator also tried reaching out to the patient multiple times and he never answered. We addressed the medication access issue, and I clarified that his prescriptions had been inadvertently sent to the [facility] pharmacy. I have resent the necessary prescriptions, including his Keppra, clonidine, hydroxyzine, trazodone, and psoriasis cream, to his preferred [facility] pharmacy. I explained that his current use of sertraline as an as-needed medication is incorrect, and we will formulate a new plan once I receive his full medication list via the patient portal, which he was instructed to set up. Regarding substance use, I provided education on dependence and withdrawal, particularly for cannabis. We discussed a harm reduction approach, advising him not to stop all substances at once to avoid severe withdrawal, and to prioritize abstaining from alcohol while continuing his current reduced cannabis use for now. I scheduled a follow-up visit in three weeks to monitor his progress with specialist appointments, medication management, and sobriety. Time spent: 40 minutes and this was on chart review, long counselling session, prescribing medicaitons and discussing the importance to follow-up with specialists. Medications: Refilled clonidine HCl 0.1 mg See Protocol PO Q4H PRN 90 tabs 0RF moderate anxiety 30 days levetiracetam 500 mg PO BID 30 days 60 tabs 0RF hydroxyzine HCl 25 mg PO Q6H PRN 60 tabs 0RF mild anxiety 30 days levetiracetam 500 mg PO BID 60 tabs 0RF 30 days trazodone may take extra tab as needed for continued insomnia 50 mg PO BEDTIME PRN 45 tabs 2RF insomnia 30 days Discontinued guanfacine ER Discontinued Reason: Duplicate 2 mg PO DAILY 30 days 30 tabs 0RF
[2025-03-30 11:17] VITALS: BP 120/80; PULSE 67; RESP 18; O2SAT 98; BMI 22.6
== END 2025-03-30 12:04 | disposition home or self-care (01) ==
LOC: HO.HMCH 10:36
PROVIDERS: PCP Internal Medicine; Visit Provider Internal Medicine
DX: F41.9 Anxiety disorder, unspecified (principal); F19.20 Other psychoactive substance dependence, uncomplicated; G40.909 Epilepsy, unspecified, not intractable, without status epilepticus; L40.9 Psoriasis, unspecified; F12.90 Cannabis use, unspecified, uncomplicated

== ENCOUNTER → 2025-03-30 10:36 | Outpatient (BNVA) | payer OTHER, SELFPAY | PROVIDERS: PCP Internal Medicine; Visit Provider Internal Medicine | DX: F19.20 Other psychoactive substance dependence, uncomplicated (principal); F41.9 Anxiety disorder, unspecified; L40.9 Psoriasis, unspecified; G40.909 Epilepsy, unspecified, not intractable, without status epilepticus | CPT/HCPCS: 99212 ==